=== PATIENT | male | born 1985 | race Caucasian/White ===

== ENCOUNTER 2020-12-13 16:51 | Emergency (ER) | payer BC ==
[2020-12-13 17:10] VITALS: BP 142/84; PULSE 92
--- NOTE | 2020-12-13 17:30 | EDM.PDOC ---
ED HPI GENERAL MEDICAL PROBLEM - General Chief Complaint: Skin Complaint Stated Complaint: LT LEG BLEEDING AND WONT START Time Seen by Provider: 12/13/20 17:04 Source of Information: Reports: Patient, RN Notes Reviewed History Limitations: Reports: No Limitations - History of Present Illness INITIAL COMMENTS - FREE TEXT/NARRATIVE: Patient is a 35-year-old male presenting to the emergency department for evaluation with regards to a bleeding scratch on his left, medial, lower extremity. He reports that around 4 AM this morning he scratched his leg and the bleeding began. He wrapped it and went to bed. Upon waking he had no further bleeding, however when he took the dressing off it started bleeding significantly. He was seen at the [place] walk-in clinic prior to coming here. The provider attempted to cauterize the area and the bleeding did stop momentarily, however unfortunately it resumed. He is not on any blood thinners. He reports that he had an occurrence similar to this about 6 months ago. 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 - Related Data Allergies Allergy/AdvReac Type Severity Reaction Status Date / Time No Known Allergies Allergy Verified 09/30/16 07:23 Home Meds: Home Meds aMILoride HCl [Amiloride HCl] 10 mg PO DAILY 12/13/20 [History] atorvaSTATin Calcium [Lipitor] 40 mg PO DAILY 12/13/20 [History] Past Medical History Cardiovascular History: Reports: High Cholesterol, Hypertension Endocrine/Metabolic History: Reports: Diabetes, Type II Social & Family History - Tobacco Use Tobacco Use Status *Q: Current Every Day Tobacco User Years of Tobacco use: 15 Packs/Tins Daily: 0.7 - Caffeine Use Caffeine Use: Reports: Energy Drinks - Recreational Drug Use Recreational Drug Use: No ED ROS GENERAL - Review of Systems Review Of Systems: Comprehensive ROS is negative, except as noted in HPI. ED EXAM, SKIN/RASH Exam: See Below General Appearance: Alert, WD/WN, No Apparent Distress Respiratory/Chest: No Respiratory Distress, Lungs Clear, Normal Breath Sounds, No Accessory Muscle Use, Chest Non-Tender Cardiovascular: Normal Peripheral Pulses, Regular Rate, Rhythm, No Gallop, No JVD, No Murmur, No Rub Extremities: Other (2+ edema to BLE. Stasis changes to skin. Aprox 0.25cm open area to left medial lower leg. No active bleeding.) Course - Vital Signs Last Recorded V/S: Last Vital Signs Temp 97.7 F 12/13/20 17:07 Pulse 92 12/13/20 17:07 Resp 20 12/13/20 17:07 BP 142/84 H 12/13/20 17:07 Pulse Ox 94 L 12/13/20 17:07 - Re-Assessments/Exams Free Text/Narrative Re-Assessment/Exam: Patient is a 35-year-old male presenting to the emergency department with complaints of a small scratch to his medial left lower extremity that would not stop bleeding. Patient is quite obese and has stasis changes and edema to the tissues of his lower extremities. He states that he scratched his lower leg about 4:00 this morning and it started bleeding. He applied dressing and it did stop, however when he removed it the bleeding resumed and he could not get it to stop. He was seen at the walk-in clinic where they cauterized it with silver nitrate but it continued to bleed. On presentation to ER, he had a dressing of gauze wrapped in [place] as well as a plastic bag over the area. There was clotted blood noted within the bag and saturated through the gauze. Dressing was removed. There is a pinpoint open area, however there is no active bleeding. Hemostatic gauze covered by 4 x 4's and wrapped in Coban was applied. We will have the patient get up and walk around to see if bleeding recurs. 12/13/20 17:44 Patient has been up and walking around the facility with no recurrence of bleeding. Recommend that he leave this dressing in place for 48 hours to allow a good scab to form. Should the bleeding recur, the hemostatic gauze should stop it. Discussed return precautions. Discharge instructions as documented. Departure - Departure Time of Disposition: 17:44 Disposition: Home, Self-Care 01 Condition: Good Clinical Impression: Bleeding from wound - Discharge Information Instructions: Uncontrolled Wound Bleeding Referrals: PCP,None [Primary Care Provider] - Forms: ED Department Discharge Additional Instructions: You were seen in the emergency department today for bleeding to the wound in your left lower leg. Hemostatic dressing was applied to the area. While in the ER, no further bleeding was noted. Recommend that she leave this dressing in place for 48 hours. After that time you may remove it. If bleeding should recur and is saturating the dressing, you should return to ER. Sepsis Event Note (ED) - Evaluation Sepsis Screening Result: No Definite Risk
== END 2020-12-13 17:55 | disposition home or self-care (01) ==
LOC: JD.ED 16:51
DX: S81.802A Unspecified open wound, left lower leg, initial encounter (principal); E78.00 Pure hypercholesterolemia, unspecified; I10 Essential (primary) hypertension; E11.9 Type 2 diabetes mellitus without complications; E66.9 Obesity, unspecified; Z68.43 Body mass index [BMI] 50.0-59.9, adult; Z72.0 Tobacco use; X58.XXXA Exposure to other specified factors, initial encounter
CPT/HCPCS: 99282; 99283

== ENCOUNTER 2021-04-02 15:54 | Emergency (ER) | payer BC ==
[2021-04-02] MEDS ORDERED: Sodium Chloride 0.9% 10 ML Syringe FLUSH PRN (17:25)
[2021-04-02] MEDS ORDERED: Labetalol 100 MG/20 ML MDV IVPUSH ONE ×2 (17:28→19:23)
--- NOTE | 2021-04-02 17:58 | CR ---
Chest: PA and lateral views of the chest were obtained. Comparison: No prior chest imaging is available. Heart is enlarged. Upper mediastinum is within normal limits. Pulmonary vessels are minimally congested. Lungs otherwise are clear. Bony structures show scattered disc space narrowing within the spine. Impression: 1. Findings suspicious for minimal CHF. 2. Other incidental findings. Diagnostic code #3
--- NOTE | 2021-04-02 18:49 | EDM.PDOC ---
ED HPI GENERAL MEDICAL PROBLEM - General Chief Complaint: Cardiovascular Problem Stated Complaint: HIGH BP/LOW OXYGEN Time Seen by Provider: 04/02/21 17:18 Source of Information: Reports: Patient, RN Notes Reviewed History Limitations: Reports: No Limitations - History of Present Illness INITIAL COMMENTS - FREE TEXT/NARRATIVE: Patient is a 35-year-old male presenting to the emergency department on the [facility] for evaluation with regards to elevated blood pressure and low oxygen saturation. Patient reports that he had an appointment with Dr. Glynn, to establish care as his primary care provider, Dr. Monge, retired. He was found to have high blood pressure and low oxygen saturation, therefore he was sent to the ER and was not seen by a provider in the clinic. Patient reports that he is prescribed amlodipine 10 mg daily as well as losartan, however he has been out of the losartan for approximately 1 week. He is also prescribed Rybelsus for borderline type 2 diabetes and to assist with weight loss plan of having bariatric surgery. Patient reports that he has had low oxygen saturations in the clinic in the past. Reports last time he saw Dr. Monge, his oxygen was 86 to 89% on room air but that the provider was not concerned with this. Patient reports that he has gained approximate 30 pounds over the last few weeks. He also reports increased lower extremity edema. Denies any shortness of breath at rest but states he does become short of breath with exertion; however, this has been chronic for him. He has a known history of significant sleep apnea but does not wear CPAP at night as he cannot tolerate it. Denies any chest pain. He has never been formally diagnosed with congestive heart failure but states that there has been "suspicion "of it in the past. Denies ever having echocardiogram completed. On arrival to ER, blood pressure was found to be elevated at 178/96, respiratory 20, oxygen 85% on room air, pulse 91, temperature 99.2 temporal. - Related Data Allergies Allergy/AdvReac Type Severity Reaction Status Date / Time No Known Allergies Allergy Verified 04/02/21 16:26 Home Meds: Home Meds aMILoride HCl [Amiloride HCl] 10 mg PO DAILY 12/13/20 [History] atorvaSTATin Calcium [Lipitor] 40 mg PO DAILY 12/13/20 [History] Furosemide [Lasix] 20 mg PO DAILY 5 Days #5 tab 04/02/21 [Rx] Losartan/Hydrochlorothiazide [Losartan-HCTZ 100-25 MG] 1 each PO DAILY #30 tablet 04/02/21 [Rx] amLODIPine Besylate [Amlodipine Besylate] 10 mg PO DAILY #30 tablet 04/02/21 [Rx] Past Medical History Cardiovascular History: Reports: High Cholesterol, Hypertension Endocrine/Metabolic History: Reports: Diabetes, Type II Social & Family History - Tobacco Use Tobacco Use Status *Q: Current Every Day Tobacco User Years of Tobacco use: 20 Packs/Tins Daily: 0.7 - Caffeine Use Caffeine Use: Reports: Energy Drinks - Recreational Drug Use Recreational Drug Use: No ED ROS GENERAL - Review of Systems Review Of Systems: See Below Constitutional: Reports: No Symptoms. Denies: Fever, Chills HEENT: Reports: No Symptoms Respiratory: Reports: Shortness of Breath (chronic). Denies: Wheezing, Pleuritic Chest Pain, Cough Cardiovascular: Reports: Dyspnea on Exertion, Edema (lower extremity). Denies: Chest Pain, Palpitations Endocrine: Reports: No Symptoms GI/Abdominal: Reports: No Symptoms : Reports: No Symptoms Musculoskeletal: Reports: No Symptoms Skin: Reports: No Symptoms Neurological: Reports: No Symptoms Psychiatric: Reports: No Symptoms Hematologic/Lymphatic: Reports: No Symptoms Immunologic: Reports: No Symptoms ED EXAM, GENERAL - Physical Exam Exam: See Below Exam Limited By: No Limitations General Appearance: Alert, WD/WN, No Apparent Distress, Obese Respiratory/Chest: No Respiratory Distress, No Accessory Muscle Use, Chest Non- Tender, Other (Faint crackles to bilateral bases) Cardiovascular: Normal Peripheral Pulses, Regular Rate, Rhythm, No Edema, No Gallop, No JVD, No Murmur, No Rub GI/Abdominal: Normal Bowel Sounds, Soft, Non-Tender, No Organomegaly, No Distention, No Abnormal Bruit, No Mass, Other (Obese) Neurological: Alert, Oriented, CN II-XII Intact, Normal Cognition, Normal Gait, Normal Reflexes, No Motor/Sensory Deficits Psychiatric: Normal Affect, Normal Mood Skin Exam: Warm, Dry, Intact, Normal Color, No Rash #1 Interpretation EKG Date: 04/02/21 Time: 18:06 Rhythm: NSR Rate (Beats/Min): 79 [place]: Normal P-Wave: Present QRS: Normal ST-T: Normal QT: Normal Course - Vital Signs Last Recorded V/S: Last Vital Signs Temp 99.2 F 04/02/21 16:22 Pulse 72 04/02/21 19:53 Resp 14 04/02/21 19:53 BP 183/97 H 04/02/21 21:16 Pulse Ox 97 04/02/21 19:53 - Orders/Labs/Meds Labs: Laboratory Tests 04/02/21 04/02/21 04/02/21 Range/Units 19:20 19:20 19:20 WBC 11.01 H (4.23-9.07) K/mm3 RBC 5.40 (4.63-6.08) M/mm3 Hgb 13.1 L (13.7-17.5) gm/dl Hct 45.5 (40.1-51.0) % MCV 84.3 (79.0-92.2) fl MCH 24.3 L (25.7-32.2) pg MCHC 28.8 L (32.2-35.5) g/dl RDW Std Deviation 55.6 H (35.1-43.9) fL Plt Count 335 (163-337) K/mm3 MPV 9.7 (9.4-12.3) fl Neut % (Auto) 68.1 H (34.0-67.9) % Lymph % (Auto) 17.4 L (21.8-53.1) % [place] % (Auto) 11.3 (5.3-12.2) % Eos % (Auto) 2.6 (0.8-7.0) Baso % (Auto) 0.3 (0.1-1.2) % Neut # (Auto) 7.50 H (1.78-5.38) K/mm3 Lymph # (Auto) 1.92 (1.32-3.57) K/mm3 [place] # (Auto) 1.24 H (0.30-0.82) K/mm3 Eos # (Auto) 0.29 (0.04-0.54) K/mm3 Baso # (Auto) 0.03 (0.01-0.08) K/mm3 Manual Slide Review Abnormal smear Sodium 144 (136-145) mEq/L Potassium 4.6 (3.5-5.1) mEq/L Chloride 104 (98-107) mEq/L Carbon Dioxide 34 H (21-32) mEq/L Anion Gap 10.6 (5-15) BUN 13 (7-18) mg/dL Creatinine 0.8 (0.7-1.3) mg/dL Est Cr Clr Drug Dosing 155.22 mL/min Estimated GFR (MDRD) > 60 (>60) mL/min BUN/Creatinine Ratio 16.3 (14-18) Glucose 90 (70-99) mg/dL Calcium 8.9 (8.5-10.1) mg/dL Magnesium 2.2 (1.8-2.4) mg/dL Total Bilirubin 0.3 (0.2-1.0) mg/dL AST 33 (15-37) U/L ALT 37 (16-63) U/L Alkaline Phosphatase 82 (46-116) U/L Troponin I < 0.017 (0.00-0.056) ng/mL NT-Pro-B Natriuret Pep 93 (0-125) pg/mL Total Protein 7.5 (6.4-8.2) g/dl Albumin 2.8 L (3.4-5.0) g/dl Globulin 4.7 gm/dL Albumin/Globulin Ratio 0.6 L (1-2) Meds: Medications Discontinued Medications Generic Name Dose Route Start Last Admin Trade Name Freq PRN Reason Stop Dose Admin Furosemide 20 mg 04/02/21 20:03 04/02/21 21:08 Furosemide 20 Mg/2 Ml Vial IVPUSH 04/02/21 20:04 20 mg ONETIME ONE Administration Labetalol HCl 10 mg 04/02/21 17:28 04/02/21 18:59 Labetalol 100 Mg/20 Ml Mdv IVPUSH 04/02/21 17:29 10 mg ONETIME ONE Administration Protocol Labetalol HCl 10 mg 04/02/21 19:23 04/02/21 19:41 Labetalol 100 Mg/20 Ml Mdv IVPUSH 04/02/21 19:24 10 mg ONETIME ONE Administration Protocol Losartan Potassium 100 mg 04/02/21 20:06 04/02/21 21:16 Losartan 100 Mg Tab PO 04/02/21 20:07 100 mg ONETIME ONE Administration Sodium Chloride 10 ml 04/02/21 17:25 04/02/21 19:13 Sodium Chloride 0.9% 10 Ml Syringe FLUSH 10 ml ASDIRECTED PRN Administration Keep Vein Open - Re-Assessments/Exams Free Text/Narrative Re-Assessment/Exam: Patient is a 35-year-old male presenting to the ER from the clinic with complaints of elevated blood pressure and low oxygen saturation. On arrival to ER, patient was found to have a blood pressure 178/96 with oxygen saturation of 85% on room air. The time my exam, he was on 2 L of oxygen saturating in the upper 90s. I did turn the oxygen off during my exam and he is maintaining oxygen saturation at 91 to 94%. He reports that he has had low oxygen saturations in the past and that his primary care provider was not concerned with this. He is significantly overweight and reports that he has been trying to lose weight. He has been prescribed amlodipine 10 mg daily as well as losartan/hydrochlorthiazide, 100 mg / 25 mg daily. He is out of his losartan/hydrochlorthiazide so is only been taking amlodipine. Denies any previous diagnosis of congestive heart failure, however on exam, there are some faint crackles auscultated on his bilateral bases. He also has 2-3+ pitting edema of his bilateral lower extremities. I have ordered blood work, chest x- ray, EKG. I will start with labetalol 10 mg IV. 04/02/211924 Patient had little improvement with the labetalol 10 mg IV. Blood pressures remain in the 180s to 190s systolically. Have ordered an additional 10 mg of IV labetalol to be given. 04/02/212009 Hematology significant for WBC minimally elevated 11.01, hemoglobin 13.1, CO2 34. proBNP is normal, however chest x-ray does show some findings of mild congestive heart failure. Given his chest x-ray and significant lower extremity edema, have ordered Lasix 20 mg IV as well as 100 mg of losartan p.o. to be given. Patient oxygen saturations had dipped to the upper 80s with occasional dips to 80%, however he was sleeping off and on. He reports he does have a history of severe sleep apnea but does not wear CPAP because he cannot tolerate the mask. Oxygen was reapplied at 2 L while he is resting. 04/02/21 21:24 Has received his labetalol and losartan as well as Lasix. Patient has been sitting up in the chair with no supplemental O2 and is maintaining oxygen saturation of 91 to 94% on room air. He was very anxious to leave and does not want to wait for discharge instructions. Blood pressure reading was 183/97, however he will not stay for any longer to see if his blood pressure comes down after the the baseline losartan, however these should bring his blood pressure down further. I will send prescription for Lasix 20 mg orally for the next 5 days as well as his amlodipine and losartan. Recommend that he call tomorrow to set up a follow-up appointment with a primary care provider for ongoing monitoring. Discussed return precautions. Departure - Departure Time of Disposition: 21:24 Disposition: Home, Self-Care 01 Condition: Good Clinical Impression: Pulmonary vascular congestion, Peripheral edema Hypertensive heart disease Qualifiers: Heart failure presence: unspecified whether heart failure present Qualified Code(s): I11.9 - Hypertensive heart disease without heart failure Prescriptions: amLODIPine Besylate [Amlodipine Besylate] 10 mg PO DAILY #30 tablet Furosemide [Lasix] 20 mg PO DAILY 5 Days #5 tab Losartan/Hydrochlorothiazide [Losartan-HCTZ 100-25 MG] 1 each PO DAILY #30 tablet Instructions: Peripheral Edema Referrals: PCP,None [Primary Care Provider] - Forms: ED Department Discharge Additional Instructions: Were seen in the emergency department today after being sent here by the clinic for elevated blood pressure and low oxygen. Work-up included blood work, EKG, chest x-ray. Results of your work-up overall normal. Your blood pressure was elevated and your oxygen was at the low end of normal. While in the ER, you received medications to bring your blood pressure down as well as Lasix which is a diuretic. You have been provided with a 5-day course of Lasix. Take this once daily. I have also sent prescription for your amlodipine and losartan. Take these as prescribed. Recommend contacting the clinic tomorrow to set up follow-up appointment for ongoing management. Return to ER for new or worsening symptoms. Sepsis Event Note (ED) - Evaluation Sepsis Screening Result: No Definite Risk
[2021-04-02 19:54] VITALS: PULSE 72
[2021-04-02] MEDS ORDERED: Furosemide 20 MG/2 ML VIAL IVPUSH ONE (20:03)
[2021-04-02] MEDS ORDERED: Losartan 100 MG Tab PO ONE (20:06)
[2021-04-02 21:17] VITALS: BP 183/97
== END 2021-04-02 21:53 | disposition home or self-care (01) ==
LOC: JD.ED 15:54
DX: I11.9 Hypertensive heart disease without heart failure (principal); R60.0 Localized edema; R09.89 Other specified symptoms and signs involving the circulatory and respiratory systems; E78.00 Pure hypercholesterolemia, unspecified; E11.9 Type 2 diabetes mellitus without complications; Z79.899 Other long term (current) drug therapy; Z72.0 Tobacco use
CPT/HCPCS: 36415; 71046; 80053; 83735; 83880; 84484; 85025; 93005; 96374; 96375; 96376; 99284; A9270; J1940; J3490; 93010

== ENCOUNTER 2021-06-22 17:50 | Inpatient (IN) | payer BC ==
--- NOTE | 2021-06-22 19:37 | EDM.PDOC ---
ED HPI GENERAL MEDICAL PROBLEM - General Chief Complaint: Cardiovascular Problem Stated Complaint: SWOLLEN ABDOMIN AND LEGS Time Seen by Provider: 06/22/21 19:20 Source of Information: Reports: Patient History Limitations: Reports: No Limitations - History of Present Illness INITIAL COMMENTS - FREE TEXT/NARRATIVE: Patient is a 35-year-old male with a past history of morbid obesity, hypertension presenting with chief complaint of shortness of breath. Duration of symptoms have been for the past 1 month. Symptoms have been gradually progressing. He reports associated increase in weight gain despite decreasing appetite. This week and is associated with increased swelling in the lower extremities bilaterally as well as the abdomen. He states he is gotten to the point now where even minimal to such as going to the bathroom are extremely arduous. He denies any chest pain with this. He denies any fevers or cough. He states he had a stress test on 1 month ago which showed his heart was in reasonably good shape but was enlarged. Patient does report compliance with all medications prescribed. Generalized Pain Score (Numeric/FACES): 7 - Related Data Allergies Allergy/AdvReac Type Severity Reaction Status Date / Time No Known Allergies Allergy Verified 06/22/21 18:40 Home Meds: Home Meds atorvaSTATin Calcium [Lipitor] 40 mg PO DAILY 12/13/20 [History] amLODIPine Besylate [Amlodipine Besylate] 10 mg PO DAILY #30 tablet 04/02/21 [Rx] Furosemide [Lasix] 40 mg PO DAILY 06/22/21 [History] Losartan/Hydrochlorothiazide [Losartan-HCTZ 100-25 MG] 25 - 100 mg PO DAILY 06/22/21 [History] Semaglutide [Rybelsus] 7 mg PO DAILY 06/22/21 [History] dilTIAZem HCL [Dilt-Xr] 180 mg PO DAILY 06/22/21 [History] Past Medical History Cardiovascular History: Reports: High Cholesterol, Hypertension Psychiatric History: Reports: Addiction Endocrine/Metabolic History: Reports: Diabetes, Type II Hematologic History: Reports: Anemia, Iron Deficiency - Infectious Disease History Infectious Disease History: Reports: Novel Coronavirus Social & Family History - Tobacco Use Tobacco Use Status *Q: Current Every Day Tobacco User Years of Tobacco use: 20 Packs/Tins Daily: 0.8 - Caffeine Use Caffeine Use: Reports: Energy Drinks, Soda - Recreational Drug Use Recreational Drug Use: No ED ROS GENERAL - Review of Systems Review Of Systems: See Below Free Text/Narrative/Comment: In addition to that documented in the HPI above, the additional ROS was obtained: Constitutional: Denies fevers or chills Eyes: Denies vision changes ENMT: Denies sore throat CV: Denies chest pain Resp: Per HPI GI: Denies vomiting or diarrhea : Denies painful urination MSK: Denies recent trauma Skin: Denies new rashes Neuro: Denies new numbness or tingling or weakness Endocrine: Denies unexpected weight loss Heme: Denies bleeding disorders ED EXAM, GENERAL - Physical Exam Exam: See Below Free Text/Narrative:: I have reviewed the triage vital signs Const: Well nourished, well developed, appears stated age. Morbidly obese. Nontoxic appearance Eyes: Pupils Equal and reactive to light bilaterally, no conjunctival injection HENT: No signs of trauma or swelling, Neck supple without meningismus CV: Demonstrates significant lower extremity edema extending up into the abdomen. Regular Rate Rhythm, Warm, well-perfused extremities RESP: Unlabored respiratory effort GI: soft, non-tender, non-distended, no masses MSK: No gross deformities appreciated Skin: Warm, dry. No rashes Neuro: Alert, engine manager II-XII grossly intact. Sensation and motor function of e xtremities grossly intact. Psych: Appropriate mood and affect. #1 Interpretation EKG Date: 06/22/21 Time: 18:41 Rhythm: NSR Rate (Beats/Min): 88 Warren: RAD-Right Warren Deviation P-Wave: Present QRS: Normal ST-T: Normal QT: Normal Comparison: No Change EKG Interpretation Comments: Poor R wave progression. Abnormal EKG Course - Vital Signs Last Recorded V/S: Last Vital Signs Temp 36.3 C 06/22/21 18:35 Pulse 83 06/22/21 18:35 Resp 16 06/22/21 18:35 BP 152/71 H 06/22/21 18:35 Pulse Ox 73 L 06/22/21 18:35 - Orders/Labs/Meds Orders: Active Orders 24 hr Category Date Time Status Admission Status [Patient Status] [ADT] Routine ADT 06/22/21 20:44 Active Oxygen Therapy, ED [RC] ASDIRECTED Care 06/22/21 18:40 Active Chest 1V Frontal [CR] Stat Exams 06/22/21 19:23 Taken Sodium Chloride 0.9% [Normal Saline] 100 ml Med 06/22/21 21:30 Active IV ASDIRECTED Medication Orders Sodium Chloride (Normal Saline) 100 mls @ 70 mls/min IV ASDIRECTED [place] Labs: Laboratory Tests 06/22/21 06/22/21 06/22/21 Range/Units 18:40 19:05 19:15 WBC 9.88 H (4.23-9.07) K/mm3 RBC 5.37 (4.63-6.08) M/mm3 Hgb 11.8 L (13.7-17.5) gm/dl Hct 43.1 (40.1-51.0) % MCV 80.3 D (79.0-92.2) fl MCH 22.0 L (25.7-32.2) pg MCHC 27.4 L (32.2-35.5) g/dl RDW Std Deviation 59.5 H (35.1-43.9) fL Plt Count 446 H D (163-337) K/mm3 MPV 8.9 L (9.4-12.3) fl Neut % (Auto) 65.2 (34.0-67.9) % Lymph % (Auto) 18.3 L (21.8-53.1) % Wise % (Auto) 14.4 H (5.3-12.2) % Eos % (Auto) 1.5 (0.8-7.0) Baso % (Auto) 0.3 (0.1-1.2) % Neut # (Auto) 6.44 H (1.78-5.38) K/mm3 Lymph # (Auto) 1.81 (1.32-3.57) K/mm3 Wise # (Auto) 1.42 H (0.30-0.82) K/mm3 Eos # (Auto) 0.15 (0.04-0.54) K/mm3 Baso # (Auto) 0.03 (0.01-0.08) K/mm3 Manual Slide Review Abnormal smear PT (9.7-12.0) SECONDS INR D-Dimer, Quantitative 1.71 H (0.19-0.50) mg/L Sodium (136-145) mEq/L Potassium (3.5-5.1) mEq/L Chloride (98-107) mEq/L Carbon Dioxide (21-32) mEq/L Anion Gap (5-15) BUN (7-18) mg/dL Creatinine (0.7-1.3) mg/dL Est Cr Clr Drug Dosing mL/min Estimated GFR (MDRD) (>60) mL/min BUN/Creatinine Ratio (14-18) Glucose (70-99) mg/dL Calcium (8.5-10.1) mg/dL Total Bilirubin (0.2-1.0) mg/dL AST (15-37) U/L ALT (16-63) U/L Alkaline Phosphatase (46-116) U/L Troponin I (0.00-0.056) ng/mL C-Reactive Protein (<1.0) mg/dL NT-Pro-B Natriuret Pep (0-125) pg/mL Total Protein (6.4-8.2) g/dl Albumin (3.4-5.0) g/dl Globulin gm/dL Albumin/Globulin Ratio (1-2) SARS-CoV-2 RNA ([place]) Positive H (NEGATIVE) 06/22/21 06/22/21 06/22/21 Range/Units 19:15 19:15 19:15 WBC (4.23-9.07) K/mm3 RBC (4.63-6.08) M/mm3 Hgb (13.7-17.5) gm/dl Hct (40.1-51.0) % MCV (79.0-92.2) fl MCH (25.7-32.2) pg MCHC (32.2-35.5) g/dl RDW Std Deviation (35.1-43.9) fL Plt Count (163-337) K/mm3 MPV (9.4-12.3) fl Neut % (Auto) (34.0-67.9) % Lymph % (Auto) (21.8-53.1) % Wise % (Auto) (5.3-12.2) % Eos % (Auto) (0.8-7.0) Baso % (Auto) (0.1-1.2) % Neut # (Auto) (1.78-5.38) K/mm3 Lymph # (Auto) (1.32-3.57) K/mm3 Wise # (Auto) (0.30-0.82) K/mm3 Eos # (Auto) (0.04-0.54) K/mm3 Baso # (Auto) (0.01-0.08) K/mm3 Manual Slide Review PT 12.4 H (9.7-12.0) SECONDS INR 1.12 D-Dimer, Quantitative (0.19-0.50) mg/L Sodium 139 (136-145) mEq/L Potassium 4.4 (3.5-5.1) mEq/L Chloride 100 (98-107) mEq/L Carbon Dioxide 38 H (21-32) mEq/L Anion Gap 5.4 (5-15) BUN 10 (7-18) mg/dL Creatinine 0.9 (0.7-1.3) mg/dL Est Cr Clr Drug Dosing 137.97 mL/min Estimated GFR (MDRD) > 60 (>60) mL/min BUN/Creatinine Ratio 11.1 L (14-18) Glucose 116 H (70-99) mg/dL Calcium 8.7 (8.5-10.1) mg/dL Total Bilirubin 0.4 (0.2-1.0) mg/dL AST 30 (15-37) U/L ALT 33 (16-63) U/L Alkaline Phosphatase 84 (46-116) U/L Troponin I < 0.017 (0.00-0.056) ng/mL C-Reactive Protein 10.7 H* (<1.0) mg/dL NT-Pro-B Natriuret Pep 534 H (0-125) pg/mL Total Protein 7.8 (6.4-8.2) g/dl Albumin 2.5 L (3.4-5.0) g/dl Globulin 5.3 gm/dL Albumin/Globulin Ratio 0.5 L (1-2) SARS-CoV-2 RNA ([place]) (NEGATIVE) Meds: Medications Generic Name Dose Route Start Last Admin Trade Name Freq PRN Reason Stop Dose Admin Sodium Chloride 100 mls @ 70 mls/min 06/22/21 21:30 Normal Saline IV ASDIRECTED [place] Discontinued Medications Generic Name Dose Route Start Last Admin Trade Name Freq PRN Reason Stop Dose Admin Dexamethasone 6 mg 06/22/21 20:24 06/22/21 21:09 Dexamethasone 4 Mg/Ml 5 Ml Mdv IV 06/22/21 20:25 6 mg ONETIME ONE Administration Furosemide 40 mg 06/22/21 20:24 06/22/21 21:07 Furosemide 40 Mg/4 Ml Vial IVPUSH 06/22/21 20:25 40 mg NOW ONE Administration Remdesivir 200 mg/ Sodium 250 mls @ 250 mls/hr 06/22/21 20:25 06/22/21 21:09 Chloride IV 06/22/21 20:26 250 mls/hr ONETIME ONE Administration Iopamidol 100 ml 06/22/21 21:19 Iopamidol 755 Mg/Ml 100 Ml Bottle IVPUSH 06/22/21 21:20 ONETIME ONE Sodium Chloride 10 ml 06/22/21 21:19 Sodium Chloride 0.9% 10 Ml Sdv FLUSH 06/22/21 21:20 ONETIME ONE Departure - Departure Time of Disposition: 21:00 Disposition: Admitted As Inpatient 64 Preliminary Cause of *Q: Sepsis & Multi System Organ Failure Reason for Transfer *Q: Other Clinical Impression: Acute hypoxemic respiratory failure, COVID-19, Anasarca Referrals: Yelena Torrez PA-C [Primary Care Provider] - Forms: ED Department Discharge Critical Care Note - Critical Care Note Total Time (mins): 35 Comments: Critical Care Procedure Note Total critical care time: Approximately 35 minutes Due to a high probability of clinically significant, life threatening deterioration, the patient required my highest level of preparedness to intervene emergently and I personally spent this critical care time directly and personally managing the patient. This critical care time included obtaining a history; examining the patient; pulse oximetry; ordering and review of studies; arranging urgent treatment with development of a management plan; evaluation of patient's response to treatment; frequent reassessment; and, discussions with other providers. This critical care time was performed to assess and manage the high probability of imminent, life-threatening deterioration that could result in multi-organ failure. It was exclusive of separately billable procedures and treating other patients and teaching time. Sepsis Event Note (ED) - Evaluation Sepsis Screening Result: No Definite Risk - Focused Exam Vital Signs: Vital Signs Temp Pulse Resp BP Pulse Ox 06/22/21 18:35 36.3 C 83 16 152/71 H 73 L - My Orders Last 24 Hours: My Active Orders 06/22/21 18:40 Oxygen Therapy, ED [RC] ASDIRECTED 06/22/21 19:23 Chest 1V Frontal [CR] Stat 06/22/21 20:44 Admission Status [Patient Status] [ADT] Routine 06/22/21 21:30 Sodium Chloride 0.9% [Normal Saline] 100 ml IV ASDIRECTED - Assessment/Plan Last 24 Hours: My Active Orders 06/22/21 18:40 Oxygen Therapy, ED [RC] ASDIRECTED 06/22/21 19:23 Chest 1V Frontal [CR] Stat 06/22/21 20:44 Admission Status [Patient Status] [ADT] Routine 06/22/21 21:30 Sodium Chloride 0.9% [Normal Saline] 100 ml IV ASDIRECTED Assessment:: Patient is a 35-year-old male presenting to the emergency room with shortness of breath. On arrival, patient was significantly hypoxic. Initially improved with 3 L nasal cannula but did begin to desaturate into the low 50%. Patient was never in any sort of respiratory distress. Oxygenation improved with position change as well as 5 L nasal cannula. Differential diagnosis considered for this patient include Covid pneumonia, CHF exacerbation, UT, pulmonary embolism, bacterial pneumonia. Laboratory studies and x-ray performed. Patient did have positive COVID-19 test. CRP and D-dimer were both elevated. Minimal leukocytosis. Kidney function within normal limits. Chest x-ray shows evidence of Covid pneumonia bilaterally. Patient was initiated on dexamethasone, remdesivir and Lasix. Case was discussed with hospitalist, Dr. Haddad, who did request D-dimer for possible PE. Unfortunately, patient's D-dimer is elevated but patient body habitus is not fit for CT scan. We will initiate prophylactic anticoagulation. Patient will be admitted to the hospital for further monitoring and management.
[2021-06-22] MEDS ORDERED: Dexamethasone 4 MG/ML 5 ML MDV IV ONE (20:24)
[2021-06-22] MEDS ORDERED: Furosemide 40 MG/4 ML VIAL IVPUSH ONE (20:24)
[2021-06-22] MEDS ORDERED: REMDESIVIR 200 MG in Sodium Chloride 0.9% 250 ML IV ONE (20:25)
[2021-06-22] MEDS ORDERED: Sodium Chloride 0.9% 10 ML SDV FLUSH ONE (21:19)
[2021-06-22] MEDS ORDERED: Iopamidol 755 Mg/ML 100 ML Bottle IVPUSH ONE (21:19)
[2021-06-22] MEDS ORDERED: Sodium Chloride 0.9% 100 ML IV SCH (21:30)
[2021-06-22] MEDS: Enoxaparin 150 MG/1 ML Syringe SUBCUT SCH (23:57)
[2021-06-23] MEDS ORDERED: Ibuprofen 600 MG Tab PO PRN (00:36)
--- NOTE | 2021-06-23 07:13 | CR ---
Chest: Portable view of the chest was obtained. Comparison: Prior chest x-ray of 04/02/21. Heart size is felt to be slightly enlarged which is stable from prior study. Pulmonary vessels appear mildly increased which are fairly stable from prior study. Lungs otherwise are clear. Bony structures appear within normal limits. Impression: 1. Heart size is slightly prominent which is stable. 2. Pulmonary vessels are mildly congested. Uncertain if these are chronic or acute. Diagnostic code #3
[2021-06-23] MEDS: Enoxaparin 150 MG/1 ML Syringe SUBCUT SCH ×2 (08:23→20:23)
--- NOTE | 2021-06-23 08:55 | PCM.HP.2 ---
H&P History of Present Illness - General Date of Service: 06/23/21 Admit Problem/Dx: Admission Diagnosis/Problem Admission Diagnosis/Problem Hypoxia Source of Information: Patient, Old Records, Provider, RN, RN Notes Reviewed History Limitations: Reports: No Limitations - History of Present Illness Initial Comments - Free Text/Narative: This is a 35-year-old male who presents to ED on 06/22/2021 with a swollen abdomen and legs. Reports symptoms have been ongoing for approximately 1 month and have been worsening. He is noted increasing weight gain despite decreasing appetite he has difficulty even getting up to go to the bathroom. Denies any chest pain, fevers, cough. He underwent a stress test approximately 1 month ago which showed LVH but no ischemia. His primary care provider has been increasing his diuretics lately, but he states they have not been working. Denies any recent echocardiogram and states he is scheduled for 1 in the next few weeks. In the ED twelve-lead EKG was obtained showing a sinus rhythm at 88 bpm with right axis deviation and poor R wave progression. Temp was 36.3. Pulse 83. Respirations 16. Blood pressure 152/71. Pulse ox was noted to be 73% on room air. Labs were obtained showing a WBC of 9.88. Hemoglobin 11.8. Platelet 446,000. Neutrophils were normal at 65.2. D-dimer was 1.71. SARS-CoV-2 RNA was positive. INR was 1.12. Sodium was 139. Potassium 4.4. Chloride 100. Carbon dioxide 38. Anion gap was 5.4. BUN was 10. Creatinine 0.9. GFR was greater than 60. Glucose was 116. Calcium was 8.7. Bilirubin 0.4. AST was 30, ALT 33, alkaline phosphatase 84. Troponin was less than 0.017. CRP was 10.7. proBNP was 534. Protein was 7.8. Albumin was 2.5. He is given 40 mg IV push furosemide and started on dexamethasone and remdesivir. He was requiring 5 L of oxygen via nasal cannula. Plan was to obtain a CT scan with contrast and PE protocol however due to patient's body habitus he will not fit in our CT scanner. Chest x-ray was obtained showing prominent heart size which is stable and mild pulmonary vascular congestion which may be chronic or acute. He carries a history of HLD, HTN, type II DM, anemia, iron deficiency, and tobacco use. His primary care provider is Yelena Torrez PA-C. He is a full code. He is subsequently admitted to the medical floor on telemetry for management of his COVID-19 pneumonia and work-up for CHF. Generalized Pain Score (Numeric/FACES): 7 - Related Data Allergies/Adverse Reactions: Allergies Allergy/AdvReac Type Severity Reaction Status Date / Time No Known Allergies Allergy Verified 06/22/21 22:46 Home Medications: Home Meds atorvaSTATin Calcium [Lipitor] 40 mg PO DAILY 12/13/20 [History] amLODIPine Besylate [Amlodipine Besylate] 10 mg PO DAILY #30 tablet 04/02/21 [Rx] Calcium Carbonate [Calcium] 600 mg PO 06/22/21 [History] Furosemide [Lasix] 40 mg PO DAILY 06/22/21 [History] Losartan/Hydrochlorothiazide [Losartan-HCTZ 100-25 MG] 25 - 100 mg PO DAILY 06/22/21 [History] Magnesium Oxide [Mag-Oxide Magnesium] 06/22/21 [History] Potassium Gluconate [Potassium] 99 mg PO 06/22/21 [History] Semaglutide [Rybelsus] 7 mg PO DAILY 06/22/21 [History] dilTIAZem HCL [Dilt-Xr] 180 mg PO DAILY 06/22/21 [History] Past Medical History Cardiovascular History: Reports: High Cholesterol, Hypertension Psychiatric History: Reports: Addiction Endocrine/Metabolic History: Reports: Diabetes, Type II Hematologic History: Reports: Anemia, Iron Deficiency - Infectious Disease History Infectious Disease History: Reports: Novel Coronavirus Social & Family History - Family History Family Medical History: No Pertinent Family History - Tobacco Use Tobacco Use Status *Q: Current Every Day Tobacco User Years of Tobacco use: 20 Packs/Tins Daily: 1 - Caffeine Use Caffeine Use: Reports: Energy Drinks - Alcohol Use Days Per Week of Alcohol Use: 7 Number of Drinks Per Day: 2 Total Drinks Per Week: 14 - Recreational Drug Use Recreational Drug Use: No H&P Review of Systems - Review of Systems: Review Of Systems: See Below General: Reports: No Symptoms, Malaise, Weakness, Fatigue, Decreased Appetite, Weight Gain. Denies: Fever, Chills HEENT: Reports: No Symptoms. Denies: Headaches, Sore Throat, Visual Changes Pulmonary: Reports: Shortness of Breath, Cough, Sputum. Denies: Wheezing, Pleuritic Chest Pain Cardiovascular: Reports: Dyspnea on Exertion, Orthopnea, Edema. Denies: Chest Pain, Palpitations, Syncope Gastrointestinal: Reports: No Symptoms. Denies: Abdominal Pain, Constipation, Diarrhea, Nausea, Vomiting Genitourinary: Reports: No Symptoms. Denies: Pain Musculoskeletal: Reports: No Symptoms Skin: Reports: No Symptoms. Denies: Cyanosis Psychiatric: Reports: No Symptoms. Denies: Confusion Neurological: Reports: No Symptoms, Difficulty Walking, Weakness. Denies: Confusion, Dizziness, Headache, Numbness, Pre-Existing Deficit, Seizure, Syncope, Tingling, Tremors, Gait Disturbance Hematologic/Lymphatic: Reports: Anemia (Chronic JORGE L) Immunologic: Reports: No Symptoms Exam - Exam Exam: See Below - Vital Signs Vital Signs: Last Vital Signs Temp 97.9 F 06/23/21 04:59 Pulse 95 06/23/21 04:59 Resp 20 06/23/21 04:59 BP 165/87 H 06/23/21 04:59 Pulse Ox 93 L 06/23/21 08:43 Weight: 500 lb 9.6 oz - Exam Quality Assessment: Supplemental Oxygen (6L), DVT Prophylaxis. No: Urinary Catheter General: Alert, Oriented, Cooperative. No: Mild Distress HEENT: Conjunctiva Clear, EACs Clear, Mucosa Moist & [place], Posterior Pharynx Clear Neck: Supple, Trachea Midline Lungs: Normal Respiratory Effort, Decreased Breath Sounds, Crackles Cardiovascular: Regular Rate, Regular Rhythm, Other (Distant heart toneslikely secondary to body habitus) GI/Abdominal Exam: Normal Bowel Sounds, Soft, Non-Tender, No Distention (Male) Exam: Deferred Rectal (Males) Exam: Deferred Back Exam: Normal Inspection, Full Range of Motion Extremities: Normal Range of Motion, Non-Tender, Normal Capillary Refill, Pedal Edema (3-4+), Other (Bilateral lower extremity discoloration and scaling consistent with PVD.) Skin: Warm, Dry, Intact Neurological: Cranial Nerves Intact (Grossly ) Neuro Extensive - Mental Status: Alert, Oriented x3, Normal Mood/Affect Psychiatric: Alert, Normal Affect, Normal Mood - Patient Data Lab Results Last 24 hrs: Laboratory Results - last 24 hr 06/22/21 06/22/21 06/22/21 Range/Units 18:40 19:05 19:15 WBC 9.88 H (4.23-9.07) K/mm3 RBC 5.37 (4.63-6.08) M/mm3 Hgb 11.8 L (13.7-17.5) gm/dl Hct 43.1 (40.1-51.0) % MCV 80.3 D (79.0-92.2) fl MCH 22.0 L (25.7-32.2) pg MCHC 27.4 L (32.2-35.5) g/dl RDW Std Deviation 59.5 H (35.1-43.9) fL Plt Count 446 H D (163-337) K/mm3 MPV 8.9 L (9.4-12.3) fl Neut % (Auto) 65.2 (34.0-67.9) % Lymph % (Auto) 18.3 L (21.8-53.1) % [place] % (Auto) 14.4 H (5.3-12.2) % Eos % (Auto) 1.5 (0.8-7.0) Baso % (Auto) 0.3 (0.1-1.2) % Neut # (Auto) 6.44 H (1.78-5.38) K/mm3 Lymph # (Auto) 1.81 (1.32-3.57) K/mm3 [place] # (Auto) 1.42 H (0.30-0.82) K/mm3 Eos # (Auto) 0.15 (0.04-0.54) K/mm3 Baso # (Auto) 0.03 (0.01-0.08) K/mm3 Manual Slide Review Abnormal smear PT (9.7-12.0) SECONDS INR D-Dimer, Quantitative 1.71 H (0.19-0.50) mg/L Sodium (136-145) mEq/L Potassium (3.5-5.1) mEq/L Chloride (98-107) mEq/L Carbon Dioxide (21-32) mEq/L Anion Gap (5-15) BUN (7-18) mg/dL Creatinine (0.7-1.3) mg/dL Est Cr Clr Drug Dosing mL/min Estimated GFR (MDRD) (>60) mL/min BUN/Creatinine Ratio (14-18) Glucose (70-99) mg/dL POC Glucose (70-99) mg/dL Calcium (8.5-10.1) mg/dL Total Bilirubin (0.2-1.0) mg/dL AST (15-37) U/L ALT (16-63) U/L Alkaline Phosphatase (46-116) U/L Troponin I (0.00-0.056) ng/mL C-Reactive Protein (<1.0) mg/dL NT-Pro-B Natriuret Pep (0-125) pg/mL Total Protein (6.4-8.2) g/dl Albumin (3.4-5.0) g/dl Globulin gm/dL Albumin/Globulin Ratio (1-2) SARS-CoV-2 RNA (HARRISON) Positive H (NEGATIVE) 06/22/21 06/22/21 06/22/21 Range/Units 19:15 19:15 19:15 WBC (4.23-9.07) K/mm3 RBC (4.63-6.08) M/mm3 Hgb (13.7-17.5) gm/dl Hct (40.1-51.0) % MCV (79.0-92.2) fl MCH (25.7-32.2) pg MCHC (32.2-35.5) g/dl RDW Std Deviation (35.1-43.9) fL Plt Count (163-337) K/mm3 MPV (9.4-12.3) fl Neut % (Auto) (34.0-67.9) % Lymph % (Auto) (21.8-53.1) % [place] % (Auto) (5.3-12.2) % Eos % (Auto) (0.8-7.0) Baso % (Auto) (0.1-1.2) % Neut # (Auto) (1.78-5.38) K/mm3 Lymph # (Auto) (1.32-3.57) K/mm3 [place] # (Auto) (0.30-0.82) K/mm3 Eos # (Auto) (0.04-0.54) K/mm3 Baso # (Auto) (0.01-0.08) K/mm3 Manual Slide Review PT 12.4 H (9.7-12.0) SECONDS INR 1.12 D-Dimer, Quantitative (0.19-0.50) mg/L Sodium 139 (136-145) mEq/L Potassium 4.4 (3.5-5.1) mEq/L Chloride 100 (98-107) mEq/L Carbon Dioxide 38 H (21-32) mEq/L Anion Gap 5.4 (5-15) BUN 10 (7-18) mg/dL Creatinine 0.9 (0.7-1.3) mg/dL Est Cr Clr Drug Dosing 137.97 mL/min Estimated GFR (MDRD) > 60 (>60) mL/min BUN/Creatinine Ratio 11.1 L (14-18) Glucose 116 H (70-99) mg/dL POC Glucose (70-99) mg/dL Calcium 8.7 (8.5-10.1) mg/dL Total Bilirubin 0.4 (0.2-1.0) mg/dL AST 30 (15-37) U/L ALT 33 (16-63) U/L Alkaline Phosphatase 84 (46-116) U/L Troponin I < 0.017 (0.00-0.056) ng/mL C-Reactive Protein 10.7 H* (<1.0) mg/dL NT-Pro-B Natriuret Pep 534 H (0-125) pg/mL Total Protein 7.8 (6.4-8.2) g/dl Albumin 2.5 L (3.4-5.0) g/dl Globulin 5.3 gm/dL Albumin/Globulin Ratio 0.5 L (1-2) SARS-CoV-2 RNA ([facility]ISON) (NEGATIVE) 06/23/21 Range/Units 06:33 WBC (4.23-9.07) K/mm3 RBC (4.63-6.08) M/mm3 Hgb (13.7-17.5) gm/dl Hct (40.1-51.0) % MCV (79.0-92.2) fl MCH (25.7-32.2) pg MCHC (32.2-35.5) g/dl RDW Std Deviation (35.1-43.9) fL Plt Count (163-337) K/mm3 MPV (9.4-12.3) fl Neut % (Auto) (34.0-67.9) % Lymph % (Auto) (21.8-53.1) % [place] % (Auto) (5.3-12.2) % Eos % (Auto) (0.8-7.0) Baso % (Auto) (0.1-1.2) % Neut # (Auto) (1.78-5.38) K/mm3 Lymph # (Auto) (1.32-3.57) K/mm3 [place] # (Auto) (0.30-0.82) K/mm3 Eos # (Auto) (0.04-0.54) K/mm3 Baso # (Auto) (0.01-0.08) K/mm3 Manual Slide Review PT (9.7-12.0) SECONDS INR D-Dimer, Quantitative (0.19-0.50) mg/L Sodium (136-145) mEq/L Potassium (3.5-5.1) mEq/L Chloride (98-107) mEq/L Carbon Dioxide (21-32) mEq/L Anion Gap (5-15) BUN (7-18) mg/dL Creatinine (0.7-1.3) mg/dL Est Cr Clr Drug Dosing mL/min Estimated GFR (MDRD) (>60) mL/min BUN/Creatinine Ratio (14-18) Glucose (70-99) mg/dL POC Glucose 146 H (70-99) mg/dL Calcium (8.5-10.1) mg/dL Total Bilirubin (0.2-1.0) mg/dL AST (15-37) U/L ALT (16-63) U/L Alkaline Phosphatase (46-116) U/L Troponin I (0.00-0.056) ng/mL C-Reactive Protein (<1.0) mg/dL NT-Pro-B Natriuret Pep (0-125) pg/mL Total Protein (6.4-8.2) g/dl Albumin (3.4-5.0) g/dl Globulin gm/dL Albumin/Globulin Ratio (1-2) SARS-CoV-2 RNA ([facility]ISON) (NEGATIVE) Result Diagrams: 06/23/21 09:05 06/23/21 09:05 Sepsis Event Note - Evaluation Sepsis Screening Result: No Definite Risk - Focused Exam Vital Signs: Vital Signs Temp Pulse Resp BP Pulse Ox Pulse Ox Pulse Ox 06/23/21 08:43 93 L 06/23/21 04:59 97.9 F 95 20 165/87 H 92 L 06/23/21 03:10 86 L 06/23/21 02:02 84 L 06/23/21 01:30 95 06/22/21 22:43 98.1 F 84 22 H 159/83 H 94 L - Problem List (1) Morbid obesity SNOMED Code(s): 963821269 ICD Code: E66.01 - MORBID (SEVERE) OBESITY DUE TO EXCESS CALORIES Status: Chronic Priority: Medium Current Visit: Yes (2) Tobacco dependence SNOMED Code(s): 04198047 ICD Code: F17.200 - NICOTINE DEPENDENCE, UNSPECIFIED, UNCOMPLICATED Status: Chronic Priority: Medium Current Visit: Yes (3) Type II diabetes mellitus SNOMED Code(s): 21098147 ICD Code: E11.9 - TYPE 2 DIABETES MELLITUS WITHOUT COMPLICATIONS Status: Chronic Priority: Medium Current Visit: No Qualifiers: Diabetes mellitus shelter insulin use: without ferry terminal agent use Diabetes mellitus complication status: with other specified complication Qualified Code(s): E11.69 - Type 2 diabetes mellitus with other specified complication (4) JORGE L (iron deficiency anemia) SNOMED Code(s): 69764666 ICD Code: D50.9 - IRON DEFICIENCY ANEMIA, UNSPECIFIED Status: Chronic Priority: Low Current Visit: No Qualifiers: Iron deficiency anemia type: unspecified iron deficiency Qualified Code(s): D50.9 - Iron deficiency anemia, unspecified (5) Acute hypoxemic respiratory failure SNOMED Code(s): 615429618 ICD Code: J96.01 - ACUTE RESPIRATORY FAILURE WITH HYPOXIA Status: Acute Priority: High Current Visit: Yes (6) Anasarca SNOMED Code(s): 306771596, 569702635 ICD Code: R60.1 - GENERALIZED EDEMA Status: Acute Priority: High Current Visit: Yes (7) COVID-19 SNOMED Code(s): 775457962 ICD Code: U07.1 - COVID-19 Status: Acute Priority: High Current Visit: Yes (8) Vitamin D deficiency SNOMED Code(s): 53741164 ICD Code: E55.9 - VITAMIN D DEFICIENCY, UNSPECIFIED Status: Acute Priority: Medium Current Visit: Yes (9) Elevated d-dimer SNOMED Code(s): 511153860 ICD Code: R79.89 - OTHER SPECIFIED ABNORMAL FINDINGS OF BLOOD CHEMISTRY Status: Acute Current Visit: Yes Problem List Initiated/Reviewed/Updated: Yes Orders Last 24hrs: Active Orders 24 hr Category Date Time Status Admission Status [Patient Status] [ADT] Routine ADT 06/22/21 20:44 Active Daily Weight [Height and Weight] [RC] 06 Care 06/23/21 00:43 Active Incentive Spirometry [RT Incentive Spirometry] [RC] Care 06/23/21 08:43 Active Q1HWA RT BiPAP/CPAP [RC] ASDIRECTED Care 06/23/21 00:59 Active Telemetry Monitoring [Cardiac Monitoring] [RC] . Care 06/23/21 00:38 Active DIRECTED Up With Assistance [] ASDIRECTED Care 06/23/21 00:39 Active Adult Diet [DIET] Diet 06/23/21 Breakfast Active Acetaminophen [TylenoL] Med 06/23/21 00:35 Active 650 mg PO Q4H PRN Enoxaparin [Lovenox] Med 06/22/21 23:00 Active 230 mg SUBCUT DAILY Ibuprofen [Motrin] Med 06/23/21 00:36 Active 600 mg PO Q6H PRN Sodium Chloride 0.9% [Normal Saline] 100 ml Med 06/22/21 21:30 Active IV ASDIRECTED Pulse Oximetry Continuous Monitoring [OM.PC] Routine Oth 06/23/21 00:37 Active Code Status [Resuscitation Status] Routine Resus Stat 06/23/21 00:24 Ordered Medication Orders Acetaminophen (Acetaminophen 325 Mg Tab) 650 mg PO Q4H PRN PRN Reason: Pain/Fever Enoxaparin Sodium (Enoxaparin 150 Mg/1 Ml Syringe) 230 mg 1 mg/kg (230 mg) SUBCUT DAILY [facility] Last Admin: 06/23/21 08:23 Dose: 230 mg Documented by: Admin: 06/22/21 23:57 Dose: 230 mg Documented by: [facility] Sodium Chloride (Normal Saline) 100 mls @ 70 mls/min IV ASDIRECTED [facility] Ibuprofen (Ibuprofen 600 Mg Tab) 600 mg PO Q6H PRN PRN Reason: Pain/Fever Assessment/Plan Comment:: COVID-19 Acute hypoxemic respiratory failure * Prone whenever able. * CPAP when sleeping/napping * Check procalcitonin * Oxygen as needed with goal saturation between 88 and 95%. * RT consult * Monitor need for high flow oxygen * Zinc supplementation * Famotidine 20 mg twice daily * Dexamethasone 6 mg for 10 days total * Remdesivir for 5 days total * Continuous pulse oximetry * Telemetry * I-S/Acapella * Airborne/contact precautions Morbid obesity * Dietitian consult Tobacco dependence * Cessation counseling * Nicotine patch while hospitalized * Offer nicotine patches at discharge Type II diabetes mellitus * Hold home p.o. semaglutide * 4 times daily before meals and bedtime blood glucose checks * Low intensity sliding scale insulin * A1c 7.6 * Dietitian consult * Consider visual educator JORGE L (iron deficiency anemia) * No acute concerns * No home iron supplementation * Monitor Vitamin D deficiency * Vitamin D 21.7 * Start 5000 unit daily supplementation Anasarca * Question heart failure component * Hold home Cozaar and continue other diuretics * 20 mg twice daily diuretic dosing Lasix IV push * Echocardiogram ordered * HAJA hose * Monitor daily weights * Monitor intake and output Elevated D-Dimer * Unfortunately patient unable to fit in CT scanner for CTA * Monitor D-dimer every 48 * Lovenox 1 mg/kg twice daily Code status: Full Code PCP: Yelena Torrez PA-C DVT prophylaxis: Lovenox Disposition: Patient admitted to the floor for treatment and management of his COVID-19 pneumonia and acute respiratory failure. We will also work-up his edema and concerns for heart failure. Length of stay likely 4 to 5 days pending progress - Mortality Measure Prognosis:: Poor (Unfortunately given patient's morbid obesity and chronic medical conditions he is at very high risk for deterioration and overall poor outcome.)
[2021-06-23] MEDS ORDERED: Albuterol 6.7 GM Inhaler INH PRN (09:01)
[2021-06-23] MEDS ORDERED: Ondansetron 4 MG/2 ML SDV IV PRN (09:01)
[2021-06-23] MEDS ORDERED: Semaglutide [Rybelsus] 7 MG Tablet PO SCH (09:15)
[2021-06-23] MEDS ORDERED: Furosemide 40 MG Tab PO SCH (09:15)
[2021-06-23] MEDS ORDERED: Losartan 100 MG Tab PO SCH (09:30)
[2021-06-23] MEDS: Dexamethasone 4 MG Tab PO SCH (09:40)
[2021-06-23] MEDS: atorvaSTATin 40 MG Tab PO SCH (09:40)
[2021-06-23] MEDS: Zinc Sulfate 220 MG Cap PO SCH (09:43)
[2021-06-23] MEDS: amLODIPine 10 MG Tab PO SCH (09:43)
[2021-06-23] MEDS: Hydrochlorothiazide 25 MG Tab PO SCH (09:43)
[2021-06-23 10:28] LABS: HEMOGLOBIN A1C 7.6 %
[2021-06-23 10:55] LABS: VITAMIN D,25-HYDROXY 21.7 ng/ml (30.0-100.0)
[2021-06-23] MEDS: Insulin Lispro 100 Unit/ML 3 ML KwikPen SUBCUT SCH ×3 (12:12→22:15)
[2021-06-23] MEDS: Cholecalciferol (Vitamin D3) 5,000 UNIT Cap PO SCH (13:05)
[2021-06-23] MEDS: Nicotine 14 MG/24 Hr Patch TRDERM SCH (13:05)
[2021-06-23] MEDS: Furosemide 20 MG/2 ML VIAL IVPUSH SCH (13:05)
[2021-06-23] MEDS: Famotidine 20 MG Tab PO SCH (20:23)
[2021-06-23] MEDS: REMDESIVIR 100 MG in Sodium Chloride 0.9% 250 ML IV SCH (20:23)
[2021-06-23] MEDS: Albuterol/Ipratropium 3.0-0.5 MG/3 ML Neb Soln NEB PRN (21:16)
[2021-06-23] MEDS: guaiFENesin 100 MG/5 ML Soln 10 ML UD Cup PO PRN (21:48)
[2021-06-24] MEDS: guaiFENesin 100 MG/5 ML Soln 10 ML UD Cup PO PRN ×2 (05:55→21:21)
[2021-06-24] MEDS: Furosemide 20 MG/2 ML VIAL IVPUSH SCH (05:56)
--- NOTE | 2021-06-24 07:01 | PCM.PN ---
- General Info Date of Service: 06/24/21 Admission Dx/Problem (Free Text): Admission Diagnosis/Problem Admission Diagnosis/Problem Hypoxia Functional Status: Reports: Pain Controlled, Tolerating Diet, Ambulating, Urinating, New Symptoms (Worsening edema ), Incentive Spirometry, Other (acapella ) - Review of Systems General: Reports: Weakness, Fatigue, Malaise. Denies: Fever, Chills HEENT: Reports: No Symptoms. Denies: Headaches, Sore Throat Pulmonary: Reports: Shortness of Breath, Cough, Sputum. Denies: Pleuritic Chest Pain, Wheezing Cardiovascular: Reports: Dyspnea on Exertion, Edema (Worseing ). Denies: Chest Pain, Palpitations Gastrointestinal: Reports: No Symptoms. Denies: Abdominal Pain, Constipation, Diarrhea, Nausea, Vomiting Genitourinary: Reports: No Symptoms. Denies: Pain Musculoskeletal: Reports: No Symptoms Skin: Reports: No Symptoms Neurological: Reports: Difficulty Walking (2/2 swelling), Weakness. Denies: Confusion, Dizziness, Headache, Numbness, Pre-Existing Deficit, Seizure, Syncope, Tingling, Trouble Speaking Psychiatric: Reports: No Symptoms. Denies: Confusion - Patient Data Vitals - Most Recent: Last Vital Signs Temp 97.5 F 06/24/21 04:05 Pulse 77 06/24/21 04:05 Resp 20 06/24/21 04:05 BP 153/62 H 06/24/21 04:05 Pulse Ox 95 06/24/21 04:05 Weight - Most Recent: 498 lb 14.4 oz I&O - Last 24 Hours: Intake & Output 06/23/21 06/24/21 06/24/21 22:59 06:59 14:59 Intake Total 2014 Lab Results Last 24 Hours: Laboratory Results - last 24 hr 06/23/21 06/23/21 06/23/21 Range/Units 09:05 09:05 09:11 WBC 10.34 H (4.23-9.07) K/mm3 RBC 5.24 (4.63-6.08) M/mm3 Hgb 11.1 L (13.7-17.5) gm/dl Hct 43.0 (40.1-51.0) % MCV 82.1 (79.0-92.2) fl MCH 21.2 L (25.7-32.2) pg MCHC 25.8 L (32.2-35.5) g/dl RDW Std Deviation 61.2 H (35.1-43.9) fL Plt Count 421 H (163-337) K/mm3 MPV 9.2 L (9.4-12.3) fl Neut % (Auto) 81.2 H (34.0-67.9) % Lymph % (Auto) 9.6 L (21.8-53.1) % [place] % (Auto) 8.5 (5.3-12.2) % Eos % (Auto) 0.1 L (0.8-7.0) Baso % (Auto) 0.1 (0.1-1.2) % Neut # (Auto) 8.40 H (1.78-5.38) K/mm3 Lymph # (Auto) 0.99 L (1.32-3.57) K/mm3 [place] # (Auto) 0.88 H (0.30-0.82) K/mm3 Eos # (Auto) 0.01 L (0.04-0.54) K/mm3 Baso # (Auto) 0.01 (0.01-0.08) K/mm3 Manual Slide Review Abnormal smear Sodium 139 (136-145) mEq/L Potassium 5.0 (3.5-5.1) mEq/L Chloride 99 (98-107) mEq/L Carbon Dioxide 36 H (21-32) mEq/L Anion Gap 9.0 (5-15) BUN 14 (7-18) mg/dL Creatinine 0.8 (0.7-1.3) mg/dL Est Cr Clr Drug Dosing 155.22 mL/min Estimated GFR (MDRD) > 60 (>60) mL/min BUN/Creatinine Ratio 17.5 (14-18) Glucose 163 H (70-99) mg/dL POC Glucose (70-99) mg/dL Hemoglobin A1c 7.6 H ( - 5.6) % Calcium 8.1 L (8.5-10.1) mg/dL Magnesium 2.1 (1.8-2.4) mg/dL Total Bilirubin 0.4 (0.2-1.0) mg/dL AST 26 (15-37) U/L ALT 31 (16-63) U/L Alkaline Phosphatase 82 (46-116) U/L C-Reactive Protein 11.3 H* (<1.0) mg/dL Total Protein 7.3 (6.4-8.2) g/dl Albumin 2.4 L (3.4-5.0) g/dl Globulin 4.9 gm/dL Albumin/Globulin Ratio 0.5 L (1-2) Vitamin D 25-Hydroxy 21.7 L (30.0-100.0) ng/ml 06/23/21 06/23/21 06/23/21 Range/Units 12:01 16:12 21:46 WBC (4.23-9.07) K/mm3 RBC (4.63-6.08) M/mm3 Hgb (13.7-17.5) gm/dl Hct (40.1-51.0) % MCV (79.0-92.2) fl MCH (25.7-32.2) pg MCHC (32.2-35.5) g/dl RDW Std Deviation (35.1-43.9) fL Plt Count (163-337) K/mm3 MPV (9.4-12.3) fl Neut % (Auto) (34.0-67.9) % Lymph % (Auto) (21.8-53.1) % [place] % (Auto) (5.3-12.2) % Eos % (Auto) (0.8-7.0) Baso % (Auto) (0.1-1.2) % Neut # (Auto) (1.78-5.38) K/mm3 Lymph # (Auto) (1.32-3.57) K/mm3 [place] # (Auto) (0.30-0.82) K/mm3 Eos # (Auto) (0.04-0.54) K/mm3 Baso # (Auto) (0.01-0.08) K/mm3 Manual Slide Review Sodium (136-145) mEq/L Potassium (3.5-5.1) mEq/L Chloride (98-107) mEq/L Carbon Dioxide (21-32) mEq/L Anion Gap (5-15) BUN (7-18) mg/dL Creatinine (0.7-1.3) mg/dL Est Cr Clr Drug Dosing mL/min Estimated GFR (MDRD) (>60) mL/min BUN/Creatinine Ratio (14-18) Glucose (70-99) mg/dL POC Glucose 146 H 129 H 136 H (70-99) mg/dL Hemoglobin A1c ( - 5.6) % Calcium (8.5-10.1) mg/dL Magnesium (1.8-2.4) mg/dL Total Bilirubin (0.2-1.0) mg/dL AST (15-37) U/L ALT (16-63) U/L Alkaline Phosphatase (46-116) U/L C-Reactive Protein (<1.0) mg/dL Total Protein (6.4-8.2) g/dl Albumin (3.4-5.0) g/dl Globulin gm/dL Albumin/Globulin Ratio (1-2) Vitamin D 25-Hydroxy (30.0-100.0) ng/ml 06/24/21 06/24/21 06/24/21 Range/Units 05:03 05:03 06:29 WBC 11.22 H (4.23-9.07) K/mm3 RBC 5.22 (4.63-6.08) M/mm3 Hgb 11.3 L (13.7-17.5) gm/dl Hct 42.2 (40.1-51.0) % MCV 80.8 (79.0-92.2) fl MCH 21.6 L (25.7-32.2) pg MCHC 26.8 L (32.2-35.5) g/dl RDW Std Deviation 60.0 H (35.1-43.9) fL Plt Count 409 H (163-337) K/mm3 MPV 9.7 (9.4-12.3) fl Neut % (Auto) 72.0 H (34.0-67.9) % Lymph % (Auto) 14.1 L (21.8-53.1) % [place] % (Auto) 13.4 H (5.3-12.2) % Eos % (Auto) 0.1 L (0.8-7.0) Baso % (Auto) 0.1 (0.1-1.2) % Neut # (Auto) 8.09 H (1.78-5.38) K/mm3 Lymph # (Auto) 1.58 (1.32-3.57) K/mm3 [place] # (Auto) 1.50 H (0.30-0.82) K/mm3 Eos # (Auto) 0.01 L (0.04-0.54) K/mm3 Baso # (Auto) 0.01 (0.01-0.08) K/mm3 Manual Slide Review Sodium 140 (136-145) mEq/L Potassium 4.8 (3.5-5.1) mEq/L Chloride 99 (98-107) mEq/L Carbon Dioxide 38 H (21-32) mEq/L Anion Gap 7.8 (5-15) BUN 15 (7-18) mg/dL Creatinine 0.8 (0.7-1.3) mg/dL Est Cr Clr Drug Dosing 155.22 mL/min Estimated GFR (MDRD) > 60 (>60) mL/min BUN/Creatinine Ratio 18.8 H (14-18) Glucose 112 H (70-99) mg/dL POC Glucose 108 H (70-99) mg/dL Hemoglobin A1c ( - 5.6) % Calcium 8.5 (8.5-10.1) mg/dL Magnesium 2.1 (1.8-2.4) mg/dL Total Bilirubin 0.3 (0.2-1.0) mg/dL AST 24 (15-37) U/L ALT 13 L (16-63) U/L Alkaline Phosphatase 80 (46-116) U/L C-Reactive Protein 6.4 H* (<1.0) mg/dL Total Protein 7.2 (6.4-8.2) g/dl Albumin 2.5 L (3.4-5.0) g/dl Globulin 4.7 gm/dL Albumin/Globulin Ratio 0.5 L (1-2) Vitamin D 25-Hydroxy (30.0-100.0) ng/ml Can Results Last 24 Hours: Microbiology 06/24/21 02:00 Stool Occult Blood (CAN) - Final Stool / Feces Med Orders - Current: Current Medications Acetaminophen (Acetaminophen 325 Mg Tab) 650 mg PO Q4H PRN PRN Reason: Pain/Fever Albuterol (Albuterol 6.7 Gm Inhaler) 0 gm INH Q2H PRN PRN Reason: SOB/Wheezing Albuterol/Ipratropium (Albuterol/Ipratropium 3.0-0.5 Mg/3 Ml Neb Soln) 3 ml NEB QIDRT PRN PRN Reason: Shortness Of Breath/wheezing Last Admin: 06/23/21 21:16 Dose: 3 ml Documented by: Amlodipine Besylate (Amlodipine 10 Mg Tab) 10 mg PO DAILY [facility] Last Admin: 06/23/21 09:43 Dose: 10 mg Documented by: Atorvastatin Calcium (Atorvastatin 40 Mg Tab) 40 mg PO DAILY [facility] Last Admin: 06/23/21 09:40 Dose: 40 mg Documented by: Cholecalciferol (Cholecalciferol (Vitamin D3) 5,000 Unit Cap) 5,000 unit PO DAILY [facility] Last Admin: 06/23/21 13:05 Dose: 5,000 unit Documented by: Dexamethasone (Dexamethasone 4 Mg Tab) 6 mg PO DAILY [facility] Stop: 07/01/21 09:01 Last Admin: 06/23/21 09:40 Dose: 6 mg Documented by: Diltiazem HCl (Diltiazem 180 Mg Cap.Cd) 180 mg PO DAILY [facility] Enoxaparin Sodium (Enoxaparin 150 Mg/1 Ml Syringe) 230 mg SUBCUT Q12H [facility] Last Admin: 06/23/21 20:23 Dose: 230 mg Documented by: Famotidine (Famotidine 20 Mg Tab) 20 mg PO BID [facility] Last Admin: 06/23/21 20:23 Dose: 20 mg Documented by: Furosemide (Furosemide 20 Mg/2 Ml Vial) 20 mg IVPUSH BIDDIURETIC [facility] Last Admin: 06/24/21 05:56 Dose: 20 mg Documented by: Guaifenesin (Guaifenesin 100 Mg/5 Ml Soln 10 Ml Ud Cup) 200 mg PO Q4H PRN PRN Reason: Cough Last Admin: 06/24/21 05:55 Dose: 200 mg Documented by: Hydrochlorothiazide (Hydrochlorothiazide 25 Mg Tab) 25 mg PO DAILY [facility] Last Admin: 06/23/21 09:43 Dose: 25 mg Documented by: Remdesivir 100 mg/ Sodium (Chloride) 250 mls @ 250 mls/hr IV Q24H [facility] Stop: 06/26/21 20:59 Last Admin: 06/23/21 20:23 Dose: 250 mls/hr Documented by: Ibuprofen (Ibuprofen 600 Mg Tab) 600 mg PO Q6H PRN PRN Reason: Pain/Fever Insulin Human Lispro (Insulin Lispro 100 Unit/Ml 3 Ml Kwikpen) 0 unit SUBCUT QIDACANDBED [facility]; Protocol Last Admin: 06/23/21 22:15 Dose: Not Given Documented by: Miscellaneous Information (Remove Patch) 0 ea TRDERM DAILY [facility] Nicotine (Nicotine 14 Mg/24 Hr Patch) 14 mg TRDERM DAILY [facility] Last Admin: 06/23/21 13:05 Dose: 14 mg Documented by: Ondansetron HCl (Ondansetron 4 Mg/2 Ml Sdv) 4 mg IV Q6H PRN PRN Reason: Nausea/Vomiting Zinc Sulfate (Zinc Sulfate 220 Mg Cap) 220 mg PO DAILY [facility] Last Admin: 06/23/21 09:43 Dose: 220 mg Documented by: Discontinued Medications Dexamethasone (Dexamethasone 4 Mg/Ml 5 Ml Mdv) 6 mg IV ONETIME ONE Stop: 06/22/21 20:25 Last Admin: 06/22/21 21:09 Dose: 6 mg Documented by: Enoxaparin Sodium (Enoxaparin 150 Mg/1 Ml Syringe) 230 mg 1 mg/kg (230 mg) SUBCUT DAILY [facility] Last Admin: 06/23/21 08:23 Dose: 230 mg Documented by: Furosemide (Furosemide 40 Mg/4 Ml Vial) 40 mg IVPUSH NOW ONE Stop: 06/22/21 20:25 Last Admin: 06/22/21 21:07 Dose: 40 mg Documented by: Furosemide (Furosemide 40 Mg Tab) 40 mg PO DAILY [facility] Last Admin: 06/23/21 09:44 Dose: 40 mg Documented by: Remdesivir 200 mg/ Sodium (Chloride) 250 mls @ 250 mls/hr IV ONETIME ONE Stop: 06/22/21 20:26 Last Admin: 06/22/21 21:09 Dose: 250 mls/hr Documented by: Sodium Chloride (Normal Saline) 100 mls @ 70 mls/min IV ASDIRECTED [facility] Iopamidol (Iopamidol 755 Mg/Ml 100 Ml Bottle) 100 ml IVPUSH ONETIME ONE Stop: 06/22/21 21:20 Last Admin: 06/22/21 21:43 Dose: Not Given Documented by: Losartan Potassium (Losartan 100 Mg Tab) 100 mg PO DAILY [facility] Last Admin: 06/23/21 09:41 Dose: 100 mg Documented by: Semaglutide [ Rybelsus] 7 Mg Tablet 0 each PO DAILY [place] Sodium Chloride (Sodium Chloride 0.9% 10 Ml Sdv) 10 ml FLUSH ONETIME ONE Stop: 06/22/21 21:20 Last Admin: 06/22/21 21:43 Dose: Not Given Documented by: - Exam Quality Assessment: Supplemental Oxygen (4L), DVT Prophylaxis. No: Central Line/PICC, Urine Catheter General: Alert, Oriented HEENT: Pupils Equal, Pupils Reactive, Mucous Membr. Moist/[place] Neck: Supple, Trachea Midline Lungs: Normal Respiratory Effort, Decreased Breath Sounds, Crackles, Rhonchi, Wheezing Cardiovascular: Regular Rate, Regular Rhythm GI/Abdominal Exam: Normal Bowel Sounds, Soft, Non-Tender, No Distention (Male) Exam: Deferred Back Exam: Normal Inspection, Full Range of Motion Extremities: Non-Tender, Pedal Edema (4+ up into abdomen ), Limited Range of Motion (2/2 swelling ), Other (Bilateral lower extremity discoloration con sistent with peripheral vascular disease) Skin: Warm, Dry, Intact Neurological: No New Focal Deficit Psy/Mental Status: Alert, Normal Affect, Normal Mood - Patient Data Lab Results Last 24 hrs: Laboratory Results - last 24 hr 06/23/21 06/23/21 06/23/21 Range/Units 09:05 09:05 09:11 WBC 10.34 H (4.23-9.07) K/mm3 RBC 5.24 (4.63-6.08) M/mm3 Hgb 11.1 L (13.7-17.5) gm/dl Hct 43.0 (40.1-51.0) % MCV 82.1 (79.0-92.2) fl MCH 21.2 L (25.7-32.2) pg MCHC 25.8 L (32.2-35.5) g/dl RDW Std Deviation 61.2 H (35.1-43.9) fL Plt Count 421 H (163-337) K/mm3 MPV 9.2 L (9.4-12.3) fl Neut % (Auto) 81.2 H (34.0-67.9) % Lymph % (Auto) 9.6 L (21.8-53.1) % [place] % (Auto) 8.5 (5.3-12.2) % Eos % (Auto) 0.1 L (0.8-7.0) Baso % (Auto) 0.1 (0.1-1.2) % Neut # (Auto) 8.40 H (1.78-5.38) K/mm3 Lymph # (Auto) 0.99 L (1.32-3.57) K/mm3 [place] # (Auto) 0.88 H (0.30-0.82) K/mm3 Eos # (Auto) 0.01 L (0.04-0.54) K/mm3 Baso # (Auto) 0.01 (0.01-0.08) K/mm3 Manual Slide Review Abnormal smear Sodium 139 (136-145) mEq/L Potassium 5.0 (3.5-5.1) mEq/L Chloride 99 (98-107) mEq/L Carbon Dioxide 36 H (21-32) mEq/L Anion Gap 9.0 (5-15) BUN 14 (7-18) mg/dL Creatinine 0.8 (0.7-1.3) mg/dL Est Cr Clr Drug Dosing 155.22 mL/min Estimated GFR (MDRD) > 60 (>60) mL/min BUN/Creatinine Ratio 17.5 (14-18) Glucose 163 H (70-99) mg/dL POC Glucose (70-99) mg/dL Hemoglobin A1c 7.6 H ( - 5.6) % Calcium 8.1 L (8.5-10.1) mg/dL Magnesium 2.1 (1.8-2.4) mg/dL Total Bilirubin 0.4 (0.2-1.0) mg/dL AST 26 (15-37) U/L ALT 31 (16-63) U/L Alkaline Phosphatase 82 (46-116) U/L C-Reactive Protein 11.3 H* (<1.0) mg/dL Total Protein 7.3 (6.4-8.2) g/dl Albumin 2.4 L (3.4-5.0) g/dl Globulin 4.9 gm/dL Albumin/Globulin Ratio 0.5 L (1-2) Vitamin D 25-Hydroxy 21.7 L (30.0-100.0) ng/ml 06/23/21 06/23/21 06/23/21 Range/Units 12:01 16:12 21:46 WBC (4.23-9.07) K/mm3 RBC (4.63-6.08) M/mm3 Hgb (13.7-17.5) gm/dl Hct (40.1-51.0) % MCV (79.0-92.2) fl MCH (25.7-32.2) pg MCHC (32.2-35.5) g/dl RDW Std Deviation (35.1-43.9) fL Plt Count (163-337) K/mm3 MPV (9.4-12.3) fl Neut % (Auto) (34.0-67.9) % Lymph % (Auto) (21.8-53.1) % [place] % (Auto) (5.3-12.2) % Eos % (Auto) (0.8-7.0) Baso % (Auto) (0.1-1.2) % Neut # (Auto) (1.78-5.38) K/mm3 Lymph # (Auto) (1.32-3.57) K/mm3 [place] # (Auto) (0.30-0.82) K/mm3 Eos # (Auto) (0.04-0.54) K/mm3 Baso # (Auto) (0.01-0.08) K/mm3 Manual Slide Review Sodium (136-145) mEq/L Potassium (3.5-5.1) mEq/L Chloride (98-107) mEq/L Carbon Dioxide (21-32) mEq/L Anion Gap (5-15) BUN (7-18) mg/dL Creatinine (0.7-1.3) mg/dL Est Cr Clr Drug Dosing mL/min Estimated GFR (MDRD) (>60) mL/min BUN/Creatinine Ratio (14-18) Glucose (70-99) mg/dL POC Glucose 146 H 129 H 136 H (70-99) mg/dL Hemoglobin A1c ( - 5.6) % Calcium (8.5-10.1) mg/dL Magnesium (1.8-2.4) mg/dL Total Bilirubin (0.2-1.0) mg/dL AST (15-37) U/L ALT (16-63) U/L Alkaline Phosphatase (46-116) U/L C-Reactive Protein (<1.0) mg/dL Total Protein (6.4-8.2) g/dl Albumin (3.4-5.0) g/dl Globulin gm/dL Albumin/Globulin Ratio (1-2) Vitamin D 25-Hydroxy (30.0-100.0) ng/ml 06/24/21 06/24/21 06/24/21 Range/Units 05:03 05:03 06:29 WBC 11.22 H (4.23-9.07) K/mm3 RBC 5.22 (4.63-6.08) M/mm3 Hgb 11.3 L (13.7-17.5) gm/dl Hct 42.2 (40.1-51.0) % MCV 80.8 (79.0-92.2) fl MCH 21.6 L (25.7-32.2) pg MCHC 26.8 L (32.2-35.5) g/dl RDW Std Deviation 60.0 H (35.1-43.9) fL Plt Count 409 H (163-337) K/mm3 MPV 9.7 (9.4-12.3) fl Neut % (Auto) 72.0 H (34.0-67.9) % Lymph % (Auto) 14.1 L (21.8-53.1) % [place] % (Auto) 13.4 H (5.3-12.2) % Eos % (Auto) 0.1 L (0.8-7.0) Baso % (Auto) 0.1 (0.1-1.2) % Neut # (Auto) 8.09 H (1.78-5.38) K/mm3 Lymph # (Auto) 1.58 (1.32-3.57) K/mm3 [place] # (Auto) 1.50 H (0.30-0.82) K/mm3 Eos # (Auto) 0.01 L (0.04-0.54) K/mm3 Baso # (Auto) 0.01 (0.01-0.08) K/mm3 Manual Slide Review Sodium 140 (136-145) mEq/L Potassium 4.8 (3.5-5.1) mEq/L Chloride 99 (98-107) mEq/L Carbon Dioxide 38 H (21-32) mEq/L Anion Gap 7.8 (5-15) BUN 15 (7-18) mg/dL Creatinine 0.8 (0.7-1.3) mg/dL Est Cr Clr Drug Dosing 155.22 mL/min Estimated GFR (MDRD) > 60 (>60) mL/min BUN/Creatinine Ratio 18.8 H (14-18) Glucose 112 H (70-99) mg/dL POC Glucose 108 H (70-99) mg/dL Hemoglobin A1c ( - 5.6) % Calcium 8.5 (8.5-10.1) mg/dL Magnesium 2.1 (1.8-2.4) mg/dL Total Bilirubin 0.3 (0.2-1.0) mg/dL AST 24 (15-37) U/L ALT 13 L (16-63) U/L Alkaline Phosphatase 80 (46-116) U/L C-Reactive Protein 6.4 H* (<1.0) mg/dL Total Protein 7.2 (6.4-8.2) g/dl Albumin 2.5 L (3.4-5.0) g/dl Globulin 4.7 gm/dL Albumin/Globulin Ratio 0.5 L (1-2) Vitamin D 25-Hydroxy (30.0-100.0) ng/ml Result Diagrams: 06/24/21 05:03 06/24/21 05:03 Can Results Last 24 hrs: Microbiology 06/24/21 02:00 Stool Occult Blood (CAN) - Final Stool / Feces Sepsis Event Note - Evaluation Sepsis Screening Result: No Definite Risk - Focused Exam Vital Signs: Vital Signs Temp Pulse Resp BP Pulse Ox Pulse Ox Pulse Ox 06/24/21 04:05 97.5 F 77 20 153/62 H 95 06/24/21 04:00 91 L 06/24/21 00:29 97.0 F 82 16 135/91 H 98 06/23/21 23:53 93 L 06/23/21 21:17 98 06/23/21 20:17 99.0 F 86 22 H 145/73 H 94 L - Problem List & Annotations (1) Morbid obesity SNOMED Code(s): 292957773 Code(s): E66.01 - MORBID (SEVERE) OBESITY DUE TO EXCESS CALORIES Status: Chronic Priority: Medium Current Visit: Yes (2) Tobacco dependence SNOMED Code(s): 06085618 Code(s): F17.200 - NICOTINE DEPENDENCE, UNSPECIFIED, UNCOMPLICATED Status: Chronic Priority: Medium Current Visit: Yes (3) Type II diabetes mellitus SNOMED Code(s): 87442104 Code(s): E11.9 - TYPE 2 DIABETES MELLITUS WITHOUT COMPLICATIONS Status: Chronic Priority: Medium Current Visit: No Qualifiers: Diabetes mellitus alf insulin use: without alf use Diabetes mellitus complication status: with other specified complication Qualified Code(s): E11.69 - Type 2 diabetes mellitus with other specified complication (4) JORGE L (iron deficiency anemia) SNOMED Code(s): 68627901 Code(s): D50.9 - IRON DEFICIENCY ANEMIA, UNSPECIFIED Status: Chronic Priority: Low Current Visit: No Qualifiers: Iron deficiency anemia type: unspecified iron deficiency Qualified Code(s): D50.9 - Iron deficiency anemia, unspecified (5) Acute hypoxemic respiratory failure SNOMED Code(s): 723634821 Code(s): J96.01 - ACUTE RESPIRATORY FAILURE WITH HYPOXIA Status: Acute Priority: High Current Visit: Yes (6) Anasarca SNOMED Code(s): 652283378, 763274892 Code(s): R60.1 - GENERALIZED EDEMA Status: Acute Priority: High Current Visit: Yes (7) COVID-19 SNOMED Code(s): 844068591 Code(s): U07.1 - COVID-19 Status: Acute Priority: High Current Visit: Yes (8) Vitamin D deficiency SNOMED Code(s): 67600776 Code(s): E55.9 - VITAMIN D DEFICIENCY, UNSPECIFIED Status: Acute Priority: Medium Current Visit: Yes (9) Elevated d-dimer SNOMED Code(s): 247235095 Code(s): R79.89 - OTHER SPECIFIED ABNORMAL FINDINGS OF BLOOD CHEMISTRY Status: Acute Current Visit: Yes - Problem List Review Problem List Initiated/Reviewed/Updated: Yes - My Orders Last 24 Hours: My Active Orders 06/23/21 08:55 Patient Status [ADT] Routine 06/23/21 08:57 Nurse Communication: Isolation [RC] ASDIRECTED Positioning, Patient [RC] ASDIRECTED Isolation [COMM] Stat RT Acapella [RESPCARE] Routine 06/23/21 09:00 dexAMETHasone 6 mg PO DAILY 06/23/21 09:01 Intake and Output [RC] 04,16 Oxygen Therapy [RC] ASDIRECTED Vital Signs [RC] Q4HR Consult to Drug Abuse Resistance Education Officer [CONS] Routine Albuterol [Proventil HFA] See Dose Instructions INH Q2H PRN Albuterol/Ipratropium [DuoNeb 3.0-0.5 MG/3 ML] 3 ml NEB QIDRT PRN Ondansetron [Zofran] 4 mg IV Q6H PRN 06/23/21 09:02 RT Aerosol Therapy [RC] ASDIRECTED 06/23/21 09:05 Consult to Respiratory Therapy [Respiratory Care Assess and Treatment] [CONS] Routine 06/23/21 09:11 Blood Glucose Check, Bedside [RC] QIDACANDBED 06/23/21 09:15 Zinc Sulfate [Zincate] 220 mg PO DAILY amLODIPine [Norvasc] 10 mg PO DAILY atorvaSTATin [Lipitor] 40 mg PO DAILY hydroCHLOROthiazide 25 mg PO DAILY 06/23/21 Lunch Consistent Carbohydrate Diet [DIET] Insulin Lispro [HumaLOG] See Protocol SUBCUT QIDACANDBED 06/23/21 12:01 Antiembolic Devices [RC] PER UNIT ROUTINE HAJA Hose [Antiembolic Hose] [OM.PC] Routine 06/23/21 12:15 Cholecalciferol (Vitamin D3) [Vitamin D3] 5,000 unit PO DAILY Nicotine [Habitrol] 14 mg TRDERM DAILY 06/23/21 14:00 Furosemide [Lasix] 20 mg IVPUSH BIDDIURETIC 06/23/21 20:00 Remdesivir 100 mg Sodium Chloride 0.9% [Normal Saline] 250 ml IV Q24H 06/23/21 21:00 Enoxaparin [Lovenox] 230 mg SUBCUT Q12H Famotidine [Pepcid] 20 mg PO BID 06/24/21 05:03 CBC WITH AUTO DIFF [HEME] AM 06/24/21 09:00 Diltiazem [Cardizem CD] 180 mg PO DAILY Remove Patch 0 ea TRDERM DAILY 06/25/21 05:11 C-REACTIVE PROTEIN [CHEM] AM CBC WITH AUTO DIFF [HEME] AM COMPREHENSIVE METABOLIC PN,CMP [CHEM] AM D-DIMER QUANTITATIVE [COAG] Q48H MAGNESIUM [CHEM] AM 06/26/21 05:11 C-REACTIVE PROTEIN [CHEM] AM CBC WITH AUTO DIFF [HEME] AM COMPREHENSIVE METABOLIC PN,CMP [CHEM] AM MAGNESIUM [CHEM] AM 06/27/21 05:11 C-REACTIVE PROTEIN [CHEM] AM CBC WITH AUTO DIFF [HEME] AM COMPREHENSIVE METABOLIC PN,CMP [CHEM] AM D-DIMER QUANTITATIVE [COAG] Q48H MAGNESIUM [CHEM] AM 06/29/21 05:11 D-DIMER QUANTITATIVE [COAG] Q48H - Assessment Assessment:: 06/24/2021 This is a 35-year-old male who is morbidly obese admitted for COVID-19 pneumonia and anasarca. Echo was obtained yesterday and shows 1. LVEF by visual e stimation of 60 to 65%. 2. Technically difficult study with suboptimal image quality. Suspect normal LV systolic function. Unable to visualize all segments for assessment of regional wall motion. Valves not well visualized. 3. The right ventricle was not well visualized. In short axis there is some septal flattening which may be consistent with RV pressure overload (Slide 45). Also abnormal septal bounce and apical four-chamber view which can be seen with elevated RV pressure. 4. There is no evidence of pericardial effusion. WBC is elevated 11.22, which is likely steroid related. Platelets are elevated 409,000. Sodium is 140. Potassium 4.8. Carbon dioxide 38. Anion gap is 7.8. BUN is 15. Creatinine 0.8. GFR greater than 60. Glucose has been between 108 and 146. Bilirubin 0.3. AST is 24, ALT 13, alkaline phosphatase 80. CRP is 6.4. Albumin is 2.5. Vitamin D obtained yesterday was 21.7 and hemoglobin A1c was 7.6. He is down 10 pounds. Blood pressures have been in the 150s systolic. He is on 4 L via nasal cannula. Discussed medications with Dr. Haddad today. We will continue his Cozaar and stop all other diuretics. We will also discontinue his diltiazem. We will start him on 40 mg twice daily diuretic dosing of Lasix and monitor his intake and output. We will place a sodium restriction on him. Procalcitonin is pending. We will continue remdesivir and dexamethasone. Length of stay will likely be 3-4 more days. - Plan Plan:: COVID-19 Acute hypoxemic respiratory failure * Prone whenever able. * CPAP when sleeping/napping * Oxygen as needed with goal saturation between 88 and 95%. * RT consult * Monitor need for high flow oxygen * Zinc supplementation * Famotidine 20 mg twice daily * Dexamethasone 6 mg for 10 days total * Remdesivir for 5 days total * Continuous pulse oximetry * Telemetry * I-S/Acapella * Airborne/contact precautions * PRN duonebs * PRN albuterol MDI * Daily labs Morbid obesity * Dietitian consult Tobacco dependence * Cessation counseling * Nicotine patch while hospitalized * Offer nicotine patches at discharge Type II diabetes mellitus * Hold home p.o. semaglutide * 4 times daily before meals and bedtime blood glucose checks * Low intensity sliding scale insulin * A1c 7.6 * Dietitian consult * Consider childbirth educator JORGE L (iron deficiency anemia) * No acute concerns * No home iron supplementation * Monitor Vitamin D deficiency * Vitamin D 21.7 * Start 5000 unit daily supplementation Anasarca * Continue home cozaar * Discontinue home hydrochlorothiazide, Lasix, amlodipine * Increase lasix dosing to 4o mg twice daily diuretic dosing Lasix IV push * Echocardiogram obtained as noted * HAJA julio * Monitor daily weights * Monitor strict intake and output * Low sodium diet Elevated D-Dimer * Unfortunately patient unable to fit in CT scanner for CTA * Monitor D-dimer every 48 * Lovenox 1 mg/kg twice daily Code status: Full Code PCP: Yelena Torrez PA-C DVT prophylaxis: Lovenox Disposition: Patient admitted to the floor for treatment and management of his COVID-19 pneumonia and acute respiratory failure. We will also work-up his edema. Length of stay likely 4 to 5 days pending progress
[2021-06-24] MEDS: Albuterol/Ipratropium 3.0-0.5 MG/3 ML Neb Soln NEB PRN ×3 (08:13→20:40)
[2021-06-24] MEDS ORDERED: Diltiazem 180 MG Cap.CD PO SCH (09:00)
[2021-06-24] MEDS: Famotidine 20 MG Tab PO SCH ×2 (09:45→20:05)
[2021-06-24] MEDS: Hydrochlorothiazide 25 MG Tab PO SCH (09:46)
[2021-06-24] MEDS: Zinc Sulfate 220 MG Cap PO SCH (09:46)
[2021-06-24] MEDS: Cholecalciferol (Vitamin D3) 5,000 UNIT Cap PO SCH (09:47)
[2021-06-24] MEDS: atorvaSTATin 40 MG Tab PO SCH (09:47)
[2021-06-24] MEDS: amLODIPine 10 MG Tab PO SCH (09:48)
[2021-06-24] MEDS: Dexamethasone 4 MG Tab PO SCH (09:48)
[2021-06-24] MEDS: Enoxaparin 150 MG/1 ML Syringe SUBCUT SCH ×2 (09:50→20:06)
[2021-06-24] MEDS: Nicotine 14 MG/24 Hr Patch TRDERM SCH (09:52)
[2021-06-24] MEDS ORDERED: Furosemide 40 MG/4 ML VIAL IVPUSH ONE (10:29)
[2021-06-24] MEDS: Insulin Lispro 100 Unit/ML 3 ML KwikPen SUBCUT SCH ×4 (11:11→22:02)
[2021-06-24] MEDS: Losartan 25 MG Tab PO SCH (11:40)
[2021-06-24] MEDS: Furosemide 40 MG/4 ML VIAL IVPUSH SCH (14:15)
[2021-06-24] MEDS: REMDESIVIR 100 MG in Sodium Chloride 0.9% 250 ML IV SCH (20:05)
[2021-06-25] MEDS: guaiFENesin 100 MG/5 ML Soln 10 ML UD Cup PO PRN ×2 (01:11→05:26)
[2021-06-25] MEDS: Furosemide 40 MG/4 ML VIAL IVPUSH SCH ×2 (05:26→13:25)
[2021-06-25] MEDS: Acetaminophen 325 MG Tab PO PRN ×2 (05:26→21:25)
[2021-06-25] MEDS: Albuterol/Ipratropium 3.0-0.5 MG/3 ML Neb Soln NEB PRN ×4 (05:47→20:38)
--- NOTE | 2021-06-25 06:48 | PCM.PN ---
- General Info Date of Service: 06/25/21 Admission Dx/Problem (Free Text): Admission Diagnosis/Problem Admission Diagnosis/Problem Hypoxia Functional Status: Reports: Pain Controlled, Tolerating Diet, Ambulating, Urinating, Incentive Spirometry. Denies: New Symptoms - Review of Systems General: Reports: Weakness (improving ). Denies: Fever, Fatigue, Malaise, Chills HEENT: Reports: No Symptoms. Denies: Headaches, Sore Throat Pulmonary: Reports: Shortness of Breath, Cough, Sputum. Denies: Pleuritic Chest Pain, Wheezing Cardiovascular: Reports: Dyspnea on Exertion, Edema. Denies: Chest Pain, Palpitations Gastrointestinal: Reports: No Symptoms. Denies: Abdominal Pain, Constipation, Diarrhea, Nausea, Vomiting Genitourinary: Reports: No Symptoms. Denies: Pain Musculoskeletal: Reports: No Symptoms Skin: Reports: No Symptoms. Denies: Cyanosis Neurological: Reports: No Symptoms. Denies: Confusion, Dizziness, Headache, Numbness, Pre-Existing Deficit, Seizure, Syncope, Tingling, Difficulty Walking, Gait Disturbance Psychiatric: Reports: No Symptoms - Patient Data Vitals - Most Recent: Last Vital Signs Temp 99.0 F 06/25/21 05:32 Pulse 75 06/25/21 05:32 Resp 18 06/25/21 05:32 BP 146/73 H 06/25/21 05:32 Pulse Ox 96 06/25/21 06:46 Weight - Most Recent: 476 lb 14.4 oz I&O - Last 24 Hours: Intake & Output 06/24/21 06/24/21 06/25/21 14:59 22:59 06:59 Intake Total 920 890 900 Output Total 2400 4000 3000 Balance -1480 -3110 -2100 Lab Results Last 24 Hours: Laboratory Results - last 24 hr 06/23/21 06/24/21 06/24/21 Range/Units Unknown 05:03 11:55 Manual Slide Review Abnormal smear POC Glucose 147 H (70-99) mg/dL Procalcitonin 0.17 H ng/mL 06/24/21 06/24/21 06/25/21 Range/Units 16:47 20:48 06:10 Manual Slide Review POC Glucose 164 H 126 H 110 H (70-99) mg/dL Procalcitonin ng/mL Can Results Last 24 Hours: Microbiology 06/24/21 02:00 Stool Occult Blood (CAN) - Final Stool / Feces Med Orders - Current: Current Medications Acetaminophen (Acetaminophen 325 Mg Tab) 650 mg PO Q4H PRN PRN Reason: Pain/Fever Last Admin: 06/25/21 05:26 Dose: 650 mg Documented by: Albuterol (Albuterol 6.7 Gm Inhaler) 0 gm INH Q2H PRN PRN Reason: SOB/Wheezing Albuterol/Ipratropium (Albuterol/Ipratropium 3.0-0.5 Mg/3 Ml Neb Soln) 3 ml NEB QIDRT PRN PRN Reason: Shortness Of Breath/wheezing Last Admin: 06/25/21 05:47 Dose: 3 ml Documented by: Cholecalciferol (Cholecalciferol (Vitamin D3) 5,000 Unit Cap) 5,000 unit PO DAILY [facility] Last Admin: 06/24/21 09:47 Dose: 5,000 unit Documented by: Dexamethasone (Dexamethasone 4 Mg Tab) 6 mg PO DAILY [facility] Stop: 07/01/21 09:01 Last Admin: 06/24/21 09:48 Dose: 6 mg Documented by: Enoxaparin Sodium (Enoxaparin 150 Mg/1 Ml Syringe) 230 mg SUBCUT Q12H [facility] Last Admin: 06/24/21 20:06 Dose: 230 mg Documented by: Famotidine (Famotidine 20 Mg Tab) 20 mg PO BID [facility] Last Admin: 06/24/21 20:05 Dose: 20 mg Documented by: Furosemide (Furosemide 40 Mg/4 Ml Vial) 40 mg IVPUSH BIDDIURETIC [facility] Last Admin: 06/25/21 05:26 Dose: 40 mg Documented by: Guaifenesin (Guaifenesin 100 Mg/5 Ml Soln 10 Ml Ud Cup) 200 mg PO Q4H PRN PRN Reason: Cough Last Admin: 06/25/21 05:26 Dose: 200 mg Documented by: Remdesivir 100 mg/ Sodium (Chloride) 250 mls @ 250 mls/hr IV Q24H [facility] Stop: 06/26/21 20:59 Last Admin: 06/24/21 20:05 Dose: 250 mls/hr Documented by: Insulin Human Lispro (Insulin Lispro 100 Unit/Ml 3 Ml Kwikpen) 0 unit SUBCUT QIDACANDBED [facility]; Protocol Last Admin: 06/24/21 22:02 Dose: Not Given Documented by: Losartan Potassium (Losartan 25 Mg Tab) 25 mg PO DAILY [facility] Last Admin: 06/24/21 11:40 Dose: 25 mg Documented by: Miscellaneous Information (Remove Patch) 0 ea TRDERM DAILY [facility] Last Admin: 06/24/21 09:52 Dose: 1 ea Documented by: Nicotine (Nicotine 14 Mg/24 Hr Patch) 14 mg TRDERM DAILY [facility] Last Admin: 06/24/21 09:52 Dose: 14 mg Documented by: Ondansetron HCl (Ondansetron 4 Mg/2 Ml Sdv) 4 mg IV Q6H PRN PRN Reason: Nausea/Vomiting Zinc Sulfate (Zinc Sulfate 220 Mg Cap) 220 mg PO DAILY [facility] Last Admin: 06/24/21 09:46 Dose: 220 mg Documented by: Discontinued Medications Amlodipine Besylate (Amlodipine 10 Mg Tab) 10 mg PO DAILY [facility] Last Admin: 06/24/21 09:48 Dose: 10 mg Documented by: Atorvastatin Calcium (Atorvastatin 40 Mg Tab) 40 mg PO DAILY [facility] Last Admin: 06/24/21 09:47 Dose: 40 mg Documented by: Dexamethasone (Dexamethasone 4 Mg/Ml 5 Ml Mdv) 6 mg IV ONETIME ONE Stop: 06/22/21 20:25 Last Admin: 06/22/21 21:09 Dose: 6 mg Documented by: Diltiazem HCl (Diltiazem 180 Mg Cap.Cd) 180 mg PO DAILY [facility] Last Admin: 06/24/21 09:47 Dose: 180 mg Documented by: Enoxaparin Sodium (Enoxaparin 150 Mg/1 Ml Syringe) 230 mg 1 mg/kg (230 mg) SUBCUT DAILY [facility] Last Admin: 06/23/21 08:23 Dose: 230 mg Documented by: Furosemide (Furosemide 40 Mg/4 Ml Vial) 40 mg IVPUSH NOW ONE Stop: 06/22/21 20:25 Last Admin: 06/22/21 21:07 Dose: 40 mg Documented by: Furosemide (Furosemide 40 Mg Tab) 40 mg PO DAILY [facility] Last Admin: 06/23/21 09:44 Dose: 40 mg Documented by: Furosemide (Furosemide 20 Mg/2 Ml Vial) 20 mg IVPUSH BIDDIURETIC [facility] Last Admin: 06/24/21 05:56 Dose: 20 mg Documented by: Furosemide (Furosemide 40 Mg/4 Ml Vial) 20 mg IVPUSH NOW ONE Stop: 06/24/21 10:30 Last Admin: 06/24/21 11:39 Dose: 20 mg Documented by: Hydrochlorothiazide (Hydrochlorothiazide 25 Mg Tab) 25 mg PO DAILY [facility] Last Admin: 06/24/21 09:46 Dose: 25 mg Documented by: Remdesivir 200 mg/ Sodium (Chloride) 250 mls @ 250 mls/hr IV ONETIME ONE Stop: 06/22/21 20:26 Last Admin: 06/22/21 21:09 Dose: 250 mls/hr Documented by: Sodium Chloride (Normal Saline) 100 mls @ 70 mls/min IV ASDIRECTED [facility] Ibuprofen (Ibuprofen 600 Mg Tab) 600 mg PO Q6H PRN PRN Reason: Pain/Fever Iopamidol (Iopamidol 755 Mg/Ml 100 Ml Bottle) 100 ml IVPUSH ONETIME ONE Stop: 06/22/21 21:20 Last Admin: 06/22/21 21:43 Dose: Not Given Documented by: Losartan Potassium (Losartan 100 Mg Tab) 100 mg PO DAILY [facility] Last Admin: 06/23/21 09:41 Dose: 100 mg Documented by: Semaglutide [ Rybelsus] 7 Mg Tablet 0 each PO DAILY [facility] Sodium Chloride (Sodium Chloride 0.9% 10 Ml Sdv) 10 ml FLUSH ONETIME ONE Stop: 06/22/21 21:20 Last Admin: 06/22/21 21:43 Dose: Not Given Documented by: - Exam Quality Assessment: Supplemental Oxygen (5L), DVT Prophylaxis. No: Urine Catheter General: Alert, Oriented, Cooperative, No Acute Distress HEENT: Pupils Equal, Pupils Reactive, Mucous Membr. Moist/[place] Neck: Supple, Trachea Midline Lungs: Normal Respiratory Effort, Decreased Breath Sounds, Crackles. No: Rhonchi, Wheezing Cardiovascular: Regular Rate, Regular Rhythm, Other (Distant heart tones ) GI/Abdominal Exam: Normal Bowel Sounds, Soft, Non-Tender, No Distention (Male) Exam: Deferred Back Exam: Normal Inspection, Full Range of Motion Extremities: Normal Range of Motion, Non-Tender, Normal Capillary Refill, Pedal Edema (4+ but improving ), Other (Bilateral lower extremity discoloration consistent with PVD. Lower extremity scaling) Skin: Warm, Dry, Intact Neurological: No New Focal Deficit Psy/Mental Status: Alert, Normal Affect, Normal Mood - Patient Data Lab Results Last 24 hrs: Laboratory Results - last 24 hr 06/23/21 06/24/21 06/24/21 Range/Units Unknown 05:03 11:55 Manual Slide Review Abnormal smear POC Glucose 147 H (70-99) mg/dL Procalcitonin 0.17 H ng/mL 06/24/21 06/24/21 06/25/21 Range/Units 16:47 20:48 06:10 Manual Slide Review POC Glucose 164 H 126 H 110 H (70-99) mg/dL Procalcitonin ng/mL Result Diagrams: 06/25/21 06:48 06/25/21 06:48 Can Results Last 24 hrs: Microbiology 06/24/21 02:00 Stool Occult Blood (CAN) - Final Stool / Feces Sepsis Event Note - Evaluation Sepsis Screening Result: No Definite Risk - Focused Exam Vital Signs: Vital Signs Temp Pulse Resp BP Pulse Ox Pulse Ox Pulse Ox 06/25/21 06:46 96 06/25/21 06:20 93 L 06/25/21 05:47 88 L 06/25/21 05:32 99.0 F 75 18 146/73 H 94 L 06/24/21 23:52 97.5 F 87 20 162/84 H 95 06/24/21 20:40 91 L 06/24/21 19:57 97.3 F 78 18 151/82 H 88 L - Problem List & Annotations (1) Morbid obesity SNOMED Code(s): 886458352 Code(s): E66.01 - MORBID (SEVERE) OBESITY DUE TO EXCESS CALORIES Status: Chronic Priority: Medium Current Visit: Yes (2) Tobacco dependence SNOMED Code(s): 98542060 Code(s): F17.200 - NICOTINE DEPENDENCE, UNSPECIFIED, UNCOMPLICATED Status: Chronic Priority: Medium Current Visit: Yes (3) Type II diabetes mellitus SNOMED Code(s): 83754449 Code(s): E11.9 - TYPE 2 DIABETES MELLITUS WITHOUT COMPLICATIONS Status: Chronic Priority: Medium Current Visit: No Qualifiers: 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 Diabetes mellitus complication status: with other specified complication Qualified Code(s): E11.69 - Type 2 diabetes mellitus with other specified complication (4) JORGE L (iron deficiency anemia) SNOMED Code(s): 99356033 Code(s): D50.9 - IRON DEFICIENCY ANEMIA, UNSPECIFIED Status: Chronic Priority: Low Current Visit: No Qualifiers: Iron deficiency anemia type: unspecified iron deficiency Qualified Code(s): D50.9 - Iron deficiency anemia, unspecified (5) Acute hypoxemic respiratory failure SNOMED Code(s): 218773765 Code(s): J96.01 - ACUTE RESPIRATORY FAILURE WITH HYPOXIA Status: Acute P riority: High Current Visit: Yes (6) Anasarca SNOMED Code(s): 852156516, 872608041 Code(s): R60.1 - GENERALIZED EDEMA Status: Acute Priority: High Current Visit: Yes (7) COVID-19 SNOMED Code(s): 676662635 Code(s): U07.1 - COVID-19 Status: Acute Priority: High Current Visit: Yes (8) Vitamin D deficiency SNOMED Code(s): 42090758 Code(s): E55.9 - VITAMIN D DEFICIENCY, UNSPECIFIED Status: Acute Priority: Medium Current Visit: Yes (9) Elevated d-dimer SNOMED Code(s): 440295047 Code(s): R79.89 - OTHER SPECIFIED ABNORMAL FINDINGS OF BLOOD CHEMISTRY Status: Acute Current Visit: Yes - Problem List Review Problem List Initiated/Reviewed/Updated: Yes - My Orders Last 24 Hours: My Active Orders 06/24/21 09:00 Remove Patch 0 ea TRDERM DAILY 06/24/21 10:30 Losartan [Cozaar] 25 mg PO DAILY 06/24/21 10:33 Intake and Output Strict [RC] Q2HR 06/24/21 Lunch 2 Gram Sodium Diet [DIET] 06/24/21 14:00 Furosemide [Lasix] 40 mg IVPUSH BIDDIURETIC 06/25/21 05:11 C-REACTIVE PROTEIN [CHEM] AM CBC WITH AUTO DIFF [HEME] AM COMPREHENSIVE METABOLIC PN,CMP [CHEM] AM D-DIMER QUANTITATIVE [COAG] Q48H MAGNESIUM [CHEM] AM 06/26/21 05:11 C-REACTIVE PROTEIN [CHEM] AM CBC WITH AUTO DIFF [HEME] AM COMPREHENSIVE METABOLIC PN,CMP [CHEM] AM MAGNESIUM [CHEM] AM 06/27/21 05:11 C-REACTIVE PROTEIN [CHEM] AM CBC WITH AUTO DIFF [HEME] AM COMPREHENSIVE METABOLIC PN,CMP [CHEM] AM D-DIMER QUANTITATIVE [COAG] Q48H MAGNESIUM [CHEM] AM 06/29/21 05:11 D-DIMER QUANTITATIVE [COAG] Q48H - Assessment Assessment:: 06/24/2021 This is a 35-year-old male who is morbidly obese admitted for COVID-19 pneumonia and anasarca. Echo was obtained yesterday and shows 1. LVEF by visual estimation of 60 to 65%. 2. Technically difficult study with suboptimal image quality. Suspect normal LV systolic function. Unable to visualize all segments for assessment of regional wall motion. Valves not well visualized. 3. The right ventricle was not well visualized. In short axis there is some septal flattening which may be consistent with RV pressure overload (Slide 45). Also abnormal septal bounce and apical four-chamber view which can be seen with elevated RV pressure. 4. There is no evidence of pericardial effusion. WBC is elevated 11.22, which is likely steroid related. Platelets are elevated 409,000. Sodium is 140. Potassium 4.8. Carbon dioxide 38. Anion gap is 7.8. BUN is 15. Creatinine 0.8. GFR greater than 60. Glucose has been between 108 and 146. Bilirubin 0.3. AST is 24, ALT 13, alkaline phosphatase 80. CRP is 6.4. Albumin is 2.5. Vitamin D obtained yesterday was 21.7 and hemoglobin A1c was 7.6. He is down 10 pounds. Blood pressures have been in the 150s systolic. He is on 4 L via nasal cannula. Discussed medications with Dr. Haddad today. We will continue his Cozaar and stop all other diuretics. We will also discontinue his diltiazem. We will start him on 40 mg twice daily diuretic dosing of Lasix and monitor his intake and output. We will place a sodium restriction on him. Procalcitonin is pending. We will continue remdesivir and dexamethasone. Length of stay will likely be 3-4 more days. 06/24/2021 35-year-old male admitted to the floor for treatment of his COVID-19 pneumonia a nd anasarca. He is down over 20 pounds today and reports he feels much better. He is on 5 L of oxygen currently but states his respiratory status has improved to. He will continue on remdesivir and dexamethasone. He is receiving 40 mg twice daily Lasix IV push and we will continue this until his edema has improved. Labs today show a WBC of 10.13, likely steroid related. Hemoglobin is 10.6. Platelet 400,000. Neutrophils are elevated 73.3. D-dimer is 1.52. Sodium 142. Potassium 4.1. Chloride 99. Carbon dioxide 39. Anion gap is 8.1. BUN is 18. Creatinine 0.7. GFR is greater than 60. Glucose has been 1 64- 95. Magnesium is 2.0. Bilirubin 0.5. AST is 25, ALT 30, alkaline phosphatase 74. CRP is down to 4.0. Albumin is 2.7. We will continue current treatment plan. Unknown length of stay due to severity of Covid symptoms and need for continued diuresis. - Plan Plan:: COVID-19 Acute hypoxemic respiratory failure * Prone whenever able. * CPAP when sleeping/napping * Oxygen as needed with goal saturation between 88 and 95%. * RT consult * Monitor need for high flow oxygen * Zinc supplementation * Famotidine 20 mg twice daily * Dexamethasone 6 mg for 10 days total * Remdesivir for 5 days total * Continuous pulse oximetry * Telemetry * I-S/Acapella * Airborne/contact precautions * PRN duonebs * PRN albuterol MDI * Daily labs Morbid obesity * Dietitian consult Tobacco dependence * Cessation counseling * Nicotine patch while hospitalized * Offer nicotine patches at discharge Type II diabetes mellitus * Hold home p.o. semaglutide * 4 times daily before meals and bedtime blood glucose checks * Low intensity sliding scale insulin * A1c 7.6 * Dietitian consult * Consider healthcare educator JORGE L (iron deficiency anemia) * No acute concerns * No home iron supplementation * Monitor Vitamin D deficiency * Vitamin D 21.7 * Start 5000 unit daily supplementation Anasarca * Continue home cozaar * Discontinue home hydrochlorothiazide, Lasix, amlodipine * Increase lasix dosing to 40 mg twice daily diuretic dosing Lasix IV push * Echocardiogram obtained as noted * HAJA julio * Monitor daily weights * Monitor strict intake and output * Low sodium diet Elevated D-Dimer * Unfortunately patient unable to fit in CT scanner for CTA * Monitor D-dimer every 48 * Lovenox 1 mg/kg twice daily Code status: Full Code PCP: Yelena Torrez PA-C DVT prophylaxis: Lovenox Disposition: Patient admitted to the floor for treatment and management of his COVID-19 pneumonia and acute respiratory failure. We will also work-up his edema. Length of stay likely 4 to 5 days pending progress
[2021-06-25] MEDS: Insulin Lispro 100 Unit/ML 3 ML KwikPen SUBCUT SCH ×4 (07:00→22:18)
[2021-06-25] MEDS: Cholecalciferol (Vitamin D3) 5,000 UNIT Cap PO SCH (10:04)
[2021-06-25] MEDS: Zinc Sulfate 220 MG Cap PO SCH (10:04)
[2021-06-25] MEDS: Dexamethasone 4 MG Tab PO SCH (10:04)
[2021-06-25] MEDS: Famotidine 20 MG Tab PO SCH ×2 (10:04→20:11)
[2021-06-25] MEDS: Losartan 25 MG Tab PO SCH (10:05)
[2021-06-25] MEDS: Nicotine 14 MG/24 Hr Patch TRDERM SCH (10:06)
[2021-06-25] MEDS: Enoxaparin 150 MG/1 ML Syringe SUBCUT SCH ×2 (10:07→21:06)
[2021-06-25] MEDS: REMDESIVIR 100 MG in Sodium Chloride 0.9% 250 ML IV SCH (20:12)
[2021-06-26] MEDS ORDERED: hydrALAZINE 20 MG/ML SDV IVPUSH PRN (00:54)
[2021-06-26] MEDS: Acetaminophen 325 MG Tab PO PRN ×2 (02:55→09:00)
[2021-06-26] MEDS: guaiFENesin 100 MG/5 ML Soln 10 ML UD Cup PO PRN ×2 (03:01→21:56)
[2021-06-26] MEDS: Furosemide 40 MG/4 ML VIAL IVPUSH SCH ×2 (06:40→13:39)
[2021-06-26] MEDS: Insulin Lispro 100 Unit/ML 3 ML KwikPen SUBCUT SCH ×4 (06:56→20:43)
--- NOTE | 2021-06-26 07:43 | PCM.PN ---
- General Info Date of Service: 06/26/21 Admission Dx/Problem (Free Text): Admission Diagnosis/Problem Admission Diagnosis/Problem acute respiratory failure secondary to COVID-19 pneumonia Subjective Update: The patient is a 35-year-old gentleman who was admitted to the emergency department on June 23, 2021 due to COVID-19 pneumonia and hypoxia. The patient has been tolerating his diet. He has denied any new pain. Patient says that he is feeling much better. No other complaints. Functional Status: Reports: Pain Controlled, Tolerating Diet. Denies: New Symptoms - Review of Systems General: Reports: No Symptoms HEENT: Reports: No Symptoms Pulmonary: Reports: Shortness of Breath, Cough Cardiovascular: Reports: No Symptoms Gastrointestinal: Reports: No Symptoms Genitourinary: Reports: No Symptoms Musculoskeletal: Reports: No Symptoms Skin: Reports: No Symptoms Neurological: Reports: No Symptoms Psychiatric: Reports: No Symptoms - Patient Data Vitals - Most Recent: Last Vital Signs Temp 36.0 C L 06/26/21 04:16 Pulse 83 06/26/21 04:16 Resp 24 H 06/26/21 04:16 BP 156/70 H 06/26/21 04:16 Pulse Ox 94 L 06/26/21 04:16 Weight - Most Recent: 207.915 kg I&O - Last 24 Hours: Intake & Output 06/25/21 06/26/21 06/26/21 22:59 06:59 14:59 Intake Total 800 650 Output Total 3000 800 Balance -2200 -150 Lab Results Last 24 Hours: Laboratory Results - last 24 hr 06/25/21 06/25/21 06/25/21 Range/Units 06:48 11:23 16:31 Sodium 142 (136-145) mEq/L Potassium 4.1 (3.5-5.1) mEq/L Chloride 99 (98-107) mEq/L Carbon Dioxide 39 H (21-32) mEq/L Anion Gap 8.1 (5-15) BUN 18 (7-18) mg/dL Creatinine 0.7 (0.7-1.3) mg/dL Est Cr Clr Drug Dosing 177.31 mL/min Estimated GFR (MDRD) > 60 (>60) mL/min BUN/Creatinine Ratio 25.7 H (14-18) Glucose 95 (70-99) mg/dL POC Glucose 130 H 123 H (70-99) mg/dL Calcium 9.0 (8.5-10.1) mg/dL Magnesium 2.0 (1.8-2.4) mg/dL Total Bilirubin 0.5 (0.2-1.0) mg/dL AST 25 (15-37) U/L ALT 30 (16-63) U/L Alkaline Phosphatase 74 (46-116) U/L C-Reactive Protein 4.0 H* (<1.0) mg/dL Total Protein 7.2 (6.4-8.2) g/dl Albumin 2.7 L (3.4-5.0) g/dl Globulin 4.5 gm/dL Albumin/Globulin Ratio 0.6 L (1-2) 06/25/21 06/26/21 Range/Units 22:06 06:49 Sodium (136-145) mEq/L Potassium (3.5-5.1) mEq/L Chloride (98-107) mEq/L Carbon Dioxide (21-32) mEq/L Anion Gap (5-15) BUN (7-18) mg/dL Creatinine (0.7-1.3) mg/dL Est Cr Clr Drug Dosing mL/min Estimated GFR (MDRD) (>60) mL/min BUN/Creatinine Ratio (14-18) Glucose (70-99) mg/dL POC Glucose 199 H 101 H (70-99) mg/dL Calcium (8.5-10.1) mg/dL Magnesium (1.8-2.4) mg/dL Total Bilirubin (0.2-1.0) mg/dL AST (15-37) U/L ALT (16-63) U/L Alkaline Phosphatase (46-116) U/L C-Reactive Protein (<1.0) mg/dL Total Protein (6.4-8.2) g/dl Albumin (3.4-5.0) g/dl Globulin gm/dL Albumin/Globulin Ratio (1-2) Med Orders - Current: Current Medications Acetaminophen (Acetaminophen 325 Mg Tab) 650 mg PO Q4H PRN PRN Reason: Pain/Fever Last Admin: 06/26/21 02:55 Dose: 650 mg Documented by: Albuterol (Albuterol 6.7 Gm Inhaler) 0 gm INH Q2H PRN PRN Reason: SOB/Wheezing Albuterol/Ipratropium (Albuterol/Ipratropium 3.0-0.5 Mg/3 Ml Neb Soln) 3 ml NEB QIDRT PRN PRN Reason: Shortness Of Breath/wheezing Last Admin: 06/25/21 20:38 Dose: 3 ml Documented by: Cholecalciferol (Cholecalciferol (Vitamin D3) 5,000 Unit Cap) 5,000 unit PO DAILY [facility] Last Admin: 06/25/21 10:04 Dose: 5,000 unit Documented by: Dexamethasone (Dexamethasone 4 Mg Tab) 6 mg PO DAILY [facility] Stop: 07/01/21 09:01 Last Admin: 06/25/21 10:04 Dose: 6 mg Documented by: Enoxaparin Sodium (Enoxaparin 150 Mg/1 Ml Syringe) 230 mg SUBCUT Q12H [facility] Last Admin: 06/25/21 21:06 Dose: 230 mg Documented by: Famotidine (Famotidine 20 Mg Tab) 20 mg PO BID [facility] Last Admin: 06/25/21 20:11 Dose: 20 mg Documented by: Furosemide (Furosemide 40 Mg/4 Ml Vial) 40 mg IVPUSH BIDDIURETIC [facility] Last Admin: 06/26/21 06:40 Dose: 40 mg Documented by: Guaifenesin (Guaifenesin 100 Mg/5 Ml Soln 10 Ml Ud Cup) 200 mg PO Q4H PRN PRN Reason: Cough Last Admin: 06/26/21 03:01 Dose: 200 mg Documented by: Hydralazine HCl (Hydralazine 20 Mg/Ml Sdv) 10 mg IVPUSH Q4H PRN PRN Reason: SBP >180 or DBP >100 Remdesivir 100 mg/ Sodium (Chloride) 250 mls @ 250 mls/hr IV Q24H [facility] Stop: 06/26/21 20:59 Last Admin: 06/25/21 20:12 Dose: 250 mls/hr Documented by: Insulin Human Lispro (Insulin Lispro 100 Unit/Ml 3 Ml Kwikpen) 0 unit SUBCUT QIDACANDBED [facility]; Protocol Last Admin: 06/26/21 06:56 Dose: Not Given Documented by: Losartan Potassium (Losartan 25 Mg Tab) 25 mg PO DAILY [facility] Last Admin: 06/25/21 10:05 Dose: 25 mg Documented by: Miscellaneous Information (Remove Patch) 0 ea TRDERM DAILY [facility] Last Admin: 06/25/21 10:08 Dose: 1 ea Documented by: Nicotine (Nicotine 14 Mg/24 Hr Patch) 14 mg TRDERM DAILY [facility] Last Admin: 06/25/21 10:06 Dose: 14 mg Documented by: Ondansetron HCl (Ondansetron 4 Mg/2 Ml Sdv) 4 mg IV Q6H PRN PRN Reason: Nausea/Vomiting Zinc Sulfate (Zinc Sulfate 220 Mg Cap) 220 mg PO DAILY [facility] Last Admin: 06/25/21 10:04 Dose: 220 mg Documented by: Discontinued Medications Amlodipine Besylate (Amlodipine 10 Mg Tab) 10 mg PO DAILY [facility] Last Admin: 06/24/21 09:48 Dose: 10 mg Documented by: Atorvastatin Calcium (Atorvastatin 40 Mg Tab) 40 mg PO DAILY [facility] Last Admin: 06/24/21 09:47 Dose: 40 mg Documented by: Dexamethasone (Dexamethasone 4 Mg/Ml 5 Ml Mdv) 6 mg IV ONETIME ONE Stop: 06/22/21 20:25 Last Admin: 06/22/21 21:09 Dose: 6 mg Documented by: Diltiazem HCl (Diltiazem 180 Mg Cap.Cd) 180 mg PO DAILY [facility] Last Admin: 06/24/21 09:47 Dose: 180 mg Documented by: Enoxaparin Sodium (Enoxaparin 150 Mg/1 Ml Syringe) 230 mg 1 mg/kg (230 mg) SUBCUT DAILY [facility] Last Admin: 06/23/21 08:23 Dose: 230 mg Documented by: Furosemide (Furosemide 40 Mg/4 Ml Vial) 40 mg IVPUSH NOW ONE Stop: 06/22/21 20:25 Last Admin: 06/22/21 21:07 Dose: 40 mg Documented by: Furosemide (Furosemide 40 Mg Tab) 40 mg PO DAILY [facility] Last Admin: 06/23/21 09:44 Dose: 40 mg Documented by: Furosemide (Furosemide 20 Mg/2 Ml Vial) 20 mg IVPUSH BIDDIURETIC [facility] Last Admin: 06/24/21 05:56 Dose: 20 mg Documented by: Furosemide (Furosemide 40 Mg/4 Ml Vial) 20 mg IVPUSH NOW ONE Stop: 06/24/21 10:30 Last Admin: 06/24/21 11:39 Dose: 20 mg Documented by: Hydrochlorothiazide (Hydrochlorothiazide 25 Mg Tab) 25 mg PO DAILY [facility] Last Admin: 06/24/21 09:46 Dose: 25 mg Documented by: Remdesivir 200 mg/ Sodium (Chloride) 250 mls @ 250 mls/hr IV ONETIME ONE Stop: 06/22/21 20:26 Last Admin: 06/22/21 21:09 Dose: 250 mls/hr Documented by: Sodium Chloride (Normal Saline) 100 mls @ 70 mls/min IV ASDIRECTED [facility] Ibuprofen (Ibuprofen 600 Mg Tab) 600 mg PO Q6H PRN PRN Reason: Pain/Fever Iopamidol (Iopamidol 755 Mg/Ml 100 Ml Bottle) 100 ml IVPUSH ONETIME ONE Stop: 06/22/21 21:20 Last Admin: 06/22/21 21:43 Dose: Not Given Documented by: Losartan Potassium (Losartan 100 Mg Tab) 100 mg PO DAILY [facility] Last Admin: 06/23/21 09:41 Dose: 100 mg Documented by: Semaglutide [ Rybelsus] 7 Mg Tablet 0 each PO DAILY [facility] Sodium Chloride (Sodium Chloride 0.9% 10 Ml Sdv) 10 ml FLUSH ONETIME ONE Stop: 06/22/21 21:20 Last Admin: 06/22/21 21:43 Dose: Not Given Documented by: - Exam Quality Assessment: Supplemental Oxygen, DVT Prophylaxis General: Alert, Oriented, Cooperative, No Acute Distress HEENT: Pupils Equal, Pupils Reactive, EOMI. No: Mucous Membr. Moist/[place] (Dry) Neck: Supple, Trachea Midline Lungs: Decreased Breath Sounds, Crackles Cardiovascular: Regular Rate, Regular Rhythm GI/Abdominal Exam: Normal Bowel Sounds, Soft, No Distention, Other (Obese) (Male) Exam: Deferred Back Exam: Normal Inspection, Full Range of Motion Extremities: Normal Inspection, Normal Range of Motion, Pedal Edema Skin: Warm, Dry, Intact, Rash (Chronic venous stasis changes bilateral lower extremities) Neurological: No New Focal Deficit, Normal Gait, Normal Speech Psy/Mental Status: Alert, Normal Affect - Patient Data Lab Results Last 24 hrs: Laboratory Results - last 24 hr 06/25/21 06/25/21 06/25/21 Range/Units 06:48 11:23 16:31 Sodium 142 (136-145) mEq/L Potassium 4.1 (3.5-5.1) mEq/L Chloride 99 (98-107) mEq/L Carbon Dioxide 39 H (21-32) mEq/L Anion Gap 8.1 (5-15) BUN 18 (7-18) mg/dL Creatinine 0.7 (0.7-1.3) mg/dL Est Cr Clr Drug Dosing 177.31 mL/min Estimated GFR (MDRD) > 60 (>60) mL/min BUN/Creatinine Ratio 25.7 H (14-18) Glucose 95 (70-99) mg/dL POC Glucose 130 H 123 H (70-99) mg/dL Calcium 9.0 (8.5-10.1) mg/dL Magnesium 2.0 (1.8-2.4) mg/dL Total Bilirubin 0.5 (0.2-1.0) mg/dL AST 25 (15-37) U/L ALT 30 (16-63) U/L Alkaline Phosphatase 74 (46-116) U/L C-Reactive Protein 4.0 H* (<1.0) mg/dL Total Protein 7.2 (6.4-8.2) g/dl Albumin 2.7 L (3.4-5.0) g/dl Globulin 4.5 gm/dL Albumin/Globulin Ratio 0.6 L (1-2) 06/25/21 06/26/21 Range/Units 22:06 06:49 Sodium (136-145) mEq/L Potassium (3.5-5.1) mEq/L Chloride (98-107) mEq/L Carbon Dioxide (21-32) mEq/L Anion Gap (5-15) BUN (7-18) mg/dL Creatinine (0.7-1.3) mg/dL Est Cr Clr Drug Dosing mL/min Estimated GFR (MDRD) (>60) mL/min BUN/Creatinine Ratio (14-18) Glucose (70-99) mg/dL POC Glucose 199 H 101 H (70-99) mg/dL Calcium (8.5-10.1) mg/dL Magnesium (1.8-2.4) mg/dL Total Bilirubin (0.2-1.0) mg/dL AST (15-37) U/L ALT (16-63) U/L Alkaline Phosphatase (46-116) U/L C-Reactive Protein (<1.0) mg/dL Total Protein (6.4-8.2) g/dl Albumin (3.4-5.0) g/dl Globulin gm/dL Albumin/Globulin Ratio (1-2) Result Diagrams: 06/26/21 07:34 06/26/21 07:34 Sepsis Event Note - Evaluation Sepsis Screening Result: No Definite Risk - Focused Exam Vital Signs: Vital Signs Temp Temp Pulse Pulse Resp BP BP 06/26/21 04:16 36.0 C L 83 24 H 156/70 H 06/26/21 03:00 160/78 H 06/26/21 02:00 166/68 H 06/26/21 00:39 36.0 C L 81 24 H 178/98 H 06/25/21 22:08 81 24 H 146/98 H 06/25/21 22:00 37.0 C 06/25/21 21:30 175/84 H 06/25/21 21:09 37.2 C 78 06/25/21 20:38 Pulse Ox Pulse Ox Pulse Ox 06/26/21 04:16 94 L 06/26/21 03:00 06/26/21 02:00 06/26/21 00:39 94 L 06/25/21 22:08 97 92 L 06/25/21 22:00 06/25/21 21:30 06/25/21 21:09 93 L 06/25/21 20:38 96 - Problem List & Annotations (1) Acute hypoxemic respiratory failure SNOMED Code(s): 452011916 Code(s): J96.01 - ACUTE RESPIRATORY FAILURE WITH HYPOXIA Status: Acute Priority: High Current Visit: Yes (2) COVID-19 SNOMED Code(s): 857222024 Code(s): U07.1 - COVID-19 Status: Acute Priority: High Current Visit: Yes (3) Morbid obesity SNOMED Code(s): 736117810 Code(s): E66.01 - MORBID (SEVERE) OBESITY DUE TO EXCESS CALORIES Status: Chronic Priority: Medium Current Visit: Yes (4) Hypoventilation associated with obesity syndrome SNOMED Code(s): 43982590, 457575942 Code(s): E66.2 - MORBID (SEVERE) OBESITY WITH ALVEOLAR HYPOVENTILATION S tatus: Chronic Priority: High Current Visit: Yes (5) Hypertensive heart disease SNOMED Code(s): 23599196 Code(s): I11.9 - HYPERTENSIVE HEART DISEASE WITHOUT HEART FAILURE Status: Chronic Priority: Medium Current Visit: Yes Qualifiers: Heart failure presence: with heart failure Heart failure type: right-sided Heart failure chronicity: chronic Qualified Code(s): I11.0 - Hypertensive heart disease with heart failure; I50.812 - Chronic right heart failure (6) Type II diabetes mellitus SNOMED Code(s): 83048194 Code(s): E11.9 - TYPE 2 DIABETES MELLITUS WITHOUT COMPLICATIONS Status: Chronic Priority: Medium Current Visit: Yes Qualifiers: Diabetes mellitus exterminator helper termite insulin use: without exterminator helper termite use Diabetes mellitus complication status: with other specified complication Qualified Code(s): E11.69 - Type 2 diabetes mellitus with other specified complication - Problem List Review Problem List Initiated/Reviewed/Updated: Yes - Assessment Assessment:: 06/24/2021 This is a 35-year-old male who is morbidly obese admitted for COVID-19 pneumonia and anasarca. Echo was obtained yesterday and shows 1. LVEF by visual estimation of 60 to 65%. 2. Technically difficult study with suboptimal image quality. Suspect normal LV systolic function. Unable to visualize all segments for assessment of regional wall motion. Valves not well visualized. 3. The right ventricle was not well visualized. In short axis there is some septal flattening which may be consistent with RV pressure overload (Slide 45). Also abnormal septal bounce and apical four-chamber view which can be seen with elevated RV pressure. 4. There is no evidence of pericardial effusion. WBC is elevated 11.22, which is likely steroid related. Platelets are elevated 409,000. Sodium is 140. Potassium 4.8. Carbon dioxide 38. Anion gap is 7.8. BUN is 15. Creatinine 0.8. GFR greater than 60. Glucose has been between 108 and 146. Bilirubin 0.3. AST is 24, ALT 13, alkaline phosphatase 80. CRP is 6.4. Albumin is 2.5. Vitamin D obtained yesterday was 21.7 and hemoglobin A1c was 7.6. He is down 10 pounds. Blood pressures have been in the 150s systolic. He is on 4 L via nasal cannula. Discussed medications with Dr. Haddad today. We will continue his Cozaar and stop all other diuretics. We will also discontinue his diltiazem. We will start him on 40 mg twice daily diuretic dosing of Lasix and monitor his intake and output. We will place a sodium restriction on him. Procalcitonin is pending. We will continue remdesivir and dexamethasone. Length of stay will likely be 3-4 more days. 06/24/2021 35-year-old male admitted to the floor for treatment of his COVID-19 pneumonia and anasarca. He is down over 20 pounds today and reports he feels much better. He is on 5 L of oxygen currently but states his respiratory status has improved to. He will continue on remdesivir and dexamethasone. He is receiving 40 mg twice daily Lasix IV push and we will continue this until his edema has improved. Labs today show a WBC of 10.13, likely steroid related. Hemoglobin is 10.6. Platelet 400,000. Neutrophils are elevated 73.3. D-dimer is 1.52. Sodium 142. Potassium 4.1. Chloride 99. Carbon dioxide 39. Anion gap is 8.1. BUN is 18. Creatinine 0.7. GFR is greater than 60. Glucose has been 1 64-95. Magnesium is 2.0. Bilirubin 0.5. AST is 25, ALT 30, alkaline phosphatase 74. CRP is down to 4.0. Albumin is 2.7. We will continue current treatment plan. Unknown length of stay due to severity of Covid symptoms and need for continued diuresis. - Plan Plan:: COVID-19 Acute hypoxemic respiratory failure * Prone whenever able. * CPAP when sleeping/napping * Oxygen as needed with goal saturation between 88 and 95%. * RT consult * Monitor need for high flow oxygen * Zinc supplementation * Famotidine 20 mg twice daily * Dexamethasone 6 mg for 10 days total * Remdesivir for 5 days total * Continuous pulse oximetry * Telemetry * I-S/Acapella * Airborne/contact precautions * PRN duonebs * PRN albuterol MDI * Daily labs Morbid obesity * Dietitian consult Tobacco dependence * Cessation counseling * Nicotine patch while hospitalized * Offer nicotine patches at discharge Type II diabetes mellitus * Hold home p.o. semaglutide * 4 times daily before meals and bedtime blood glucose checks * Low intensity sliding scale insulin * A1c 7.6 * Dietitian consult * Consider certified adaptive physical educator JORGE L (iron deficiency anemia) * No acute concerns * No home iron supplementation * Monitor Vitamin D deficiency * Vitamin D 21.7 * Start 5000 unit daily supplementation Anasarca * Continue home cozaar * Discontinue home hydrochlorothiazide, Lasix, amlodipine * Increase lasix dosing to 40 mg twice daily diuretic dosing Lasix IV push * Echocardiogram obtained as noted * HAJA julio * Monitor daily weights * Monitor strict intake and output * Low sodium diet Elevated D-Dimer * Unfortunately patient unable to fit in CT scanner for CTA * Monitor D-dimer every 48 * Lovenox 1 mg/kg twice daily Code status: Full Code PCP: Yelena Torrez PA-C DVT prophylaxis: Lovenox Disposition: Patient admitted to the floor for treatment and management of his COVID-19 pneumonia and acute respiratory failure. We will also work-up his edema. Length of stay likely 4 to 5 days pending progress 06/26/2021 The patient is a 35-year-old gentleman who was admitted secondary to COVID-19 pneumonia as well as hypoxia. Review of previous laboratory studies have indicated that the patient is a chronic CO2 retainer likely secondary to obesity associated hypoventilation. The patient is on remdesivir scheduled to complete on June 27, 2021 and he will likely be appropriate for discharge at that time. Patient's oxygen saturations will be kept around 92%. The patient will need to have follow-up with his primary care physician for his hypoventilation syndrome. Repeat laboratory studies have been ordered. He currently is also type II diabetic and the patient's Accu-Cheks will continue as well as his carb constant diet. The patient had elevations of his D-dimer and is currently on Lovenox 1 mg/kg twice daily as treatment dose as he has been unable to have a CT scan due to his weight.
[2021-06-26] MEDS: Albuterol/Ipratropium 3.0-0.5 MG/3 ML Neb Soln NEB PRN ×3 (08:52→19:43)
[2021-06-26] MEDS: Famotidine 20 MG Tab PO SCH ×2 (08:56→20:20)
[2021-06-26] MEDS: Dexamethasone 4 MG Tab PO SCH (08:57)
[2021-06-26] MEDS: Zinc Sulfate 220 MG Cap PO SCH (08:57)
[2021-06-26] MEDS: Losartan 25 MG Tab PO SCH (08:57)
[2021-06-26] MEDS: Cholecalciferol (Vitamin D3) 5,000 UNIT Cap PO SCH (08:57)
[2021-06-26] MEDS: Enoxaparin 150 MG/1 ML Syringe SUBCUT SCH ×2 (08:58→20:34)
[2021-06-26] MEDS: Nicotine 14 MG/24 Hr Patch TRDERM SCH (08:59)
[2021-06-26] MEDS: cloNIDine 0.1 MG Tab PO SCH ×2 (13:38→20:20)
[2021-06-26] MEDS ORDERED: Sodium Chloride 0.9% 250 ML ONE (20:03)
[2021-06-26] MEDS: REMDESIVIR 100 MG in Sodium Chloride 0.9% 250 ML IV SCH (20:27)
[2021-06-26] MEDS: Calcium Carbonate 600 MG Tab PO SCH (22:46)
[2021-06-26] MEDS: Multivitamin Tab PO SCH (22:46)
[2021-06-26] MEDS: Magnesium Oxide 400 MG Tab PO SCH (22:46)
[2021-06-27] MEDS: Insulin Lispro 100 Unit/ML 3 ML KwikPen SUBCUT SCH ×5 (00:47→22:30)
--- NOTE | 2021-06-27 07:46 | PCM.PN ---
<Demetri Salter - Last Filed: 06/27/21 10:26> - General Info Date of Service: 06/27/21 Admission Dx/Problem (Free Text): Admission Diagnosis/Problem Admission Diagnosis/Problem acute respiratory failure secondary to COVID-19 pneumonia Functional Status: Reports: Pain Controlled, Tolerating Diet, Ambulating, Urinating, Incentive Spirometry, Other (Acapella ). Denies: New Symptoms - Review of Systems General: Reports: No Symptoms. Denies: Fever, Weakness, Fatigue, Malaise, Chills HEENT: Reports: No Symptoms. Denies: Headaches, Sore Throat Pulmonary: Reports: Shortness of Breath, Cough, Sputum. Denies: Pleuritic Chest Pain, Wheezing Cardiovascular: Reports: Dyspnea on Exertion, Edema (greatly improved ). Denies: Chest Pain, Palpitations Gastrointestinal: Reports: No Symptoms. Denies: Abdominal Pain, Constipation, Diarrhea, Nausea, Vomiting Genitourinary: Reports: No Symptoms. Denies: Pain Musculoskeletal: Reports: No Symptoms Skin: Reports: No Symptoms. Denies: Cyanosis Neurological: Reports: No Symptoms. Denies: Confusion, Dizziness, Headache, Numbness, Pre-Existing Deficit, Seizure, Syncope, Tingling, Difficulty Walking, Weakness, Gait Disturbance Psychiatric: Reports: No Symptoms - Patient Data Vitals - Most Recent: Last Vital Signs Temp 98.8 F 06/26/21 20:18 Pulse 73 06/26/21 20:18 Resp 22 H 06/26/21 20:18 BP 175/74 H 06/26/21 20:20 Pulse Ox 92 L 06/27/21 06:29 Weight - Most Recent: 207.915 kg I&O - Last 24 Hours: Intake & Output 06/26/21 06/27/21 06/27/21 22:59 06:59 14:59 Intake Total 650 250 Output Total 2150 Balance -1500 250 Lab Results Last 24 Hours: Laboratory Results - last 24 hr 06/26/21 06/26/21 06/26/21 Range/Units 07:34 07:34 11:29 WBC 6.62 (4.23-9.07) K/mm3 RBC 5.69 (4.63-6.08) M/mm3 Hgb 12.2 L (13.7-17.5) gm/dl Hct 45.3 (40.1-51.0) % MCV 79.6 (79.0-92.2) fl MCH 21.4 L (25.7-32.2) pg MCHC 26.9 L (32.2-35.5) g/dl RDW Std Deviation 58.7 H (35.1-43.9) fL Plt Count 385 H (163-337) K/mm3 MPV 9.1 L (9.4-12.3) fl Neut % (Auto) 62.8 (34.0-67.9) % Lymph % (Auto) 18.0 L (21.8-53.1) % [place] % (Auto) 18.3 H (5.3-12.2) % Eos % (Auto) 0.5 L (0.8-7.0) Baso % (Auto) 0.2 (0.1-1.2) % Neut # (Auto) 4.17 (1.78-5.38) K/mm3 Lymph # (Auto) 1.19 L (1.32-3.57) K/mm3 [place] # (Auto) 1.21 H (0.30-0.82) K/mm3 Eos # (Auto) 0.03 L (0.04-0.54) K/mm3 Baso # (Auto) 0.01 (0.01-0.08) K/mm3 Manual Slide Review Abnormal smear D-Dimer, Quantitative (0.19-0.50) mg/L Sodium 144 (136-145) mEq/L Potassium 4.0 (3.5-5.1) mEq/L Chloride 98 (98-107) mEq/L Carbon Dioxide 41 H* (21-32) mEq/L Anion Gap 9.0 (5-15) BUN 18 (7-18) mg/dL Creatinine 0.8 (0.7-1.3) mg/dL Est Cr Clr Drug Dosing 155.15 mL/min Estimated GFR (MDRD) > 60 (>60) mL/min BUN/Creatinine Ratio 22.5 H (14-18) Glucose 83 (70-99) mg/dL POC Glucose 127 H (70-99) mg/dL Calcium 9.6 (8.5-10.1) mg/dL Total Bilirubin 0.5 (0.2-1.0) mg/dL AST 38 H (15-37) U/L ALT 34 (16-63) U/L Alkaline Phosphatase 79 (46-116) U/L C-Reactive Protein 3.5 H* (<1.0) mg/dL Total Protein 8.2 (6.4-8.2) g/dl Albumin 2.8 L (3.4-5.0) g/dl Globulin 5.4 gm/dL Albumin/Globulin Ratio 0.5 L (1-2) 06/26/21 06/26/21 06/27/21 Range/Units 16:25 20:33 06:12 WBC (4.23-9.07) K/mm3 RBC (4.63-6.08) M/mm3 Hgb (13.7-17.5) gm/dl Hct (40.1-51.0) % MCV (79.0-92.2) fl MCH (25.7-32.2) pg MCHC (32.2-35.5) g/dl RDW Std Deviation (35.1-43.9) fL Plt Count (163-337) K/mm3 MPV (9.4-12.3) fl Neut % (Auto) (34.0-67.9) % Lymph % (Auto) (21.8-53.1) % [place] % (Auto) (5.3-12.2) % Eos % (Auto) (0.8-7.0) Baso % (Auto) (0.1-1.2) % Neut # (Auto) (1.78-5.38) K/mm3 Lymph # (Auto) (1.32-3.57) K/mm3 [place] # (Auto) (0.30-0.82) K/mm3 Eos # (Auto) (0.04-0.54) K/mm3 Baso # (Auto) (0.01-0.08) K/mm3 Manual Slide Review D-Dimer, Quantitative 2.78 H (0.19-0.50) mg/L Sodium (136-145) mEq/L Potassium (3.5-5.1) mEq/L Chloride (98-107) mEq/L Carbon Dioxide (21-32) mEq/L Anion Gap (5-15) BUN (7-18) mg/dL Creatinine (0.7-1.3) mg/dL Est Cr Clr Drug Dosing mL/min Estimated GFR (MDRD) (>60) mL/min BUN/Creatinine Ratio (14-18) Glucose (70-99) mg/dL POC Glucose 163 H 155 H (70-99) mg/dL Calcium (8.5-10.1) mg/dL Total Bilirubin (0.2-1.0) mg/dL AST (15-37) U/L ALT (16-63) U/L Alkaline Phosphatase (46-116) U/L C-Reactive Protein (<1.0) mg/dL Total Protein (6.4-8.2) g/dl Albumin (3.4-5.0) g/dl Globulin gm/dL Albumin/Globulin Ratio (1-2) 06/27/21 06/27/21 06/27/21 Range/Units 06:15 06:15 06:25 WBC 6.18 (4.23-9.07) K/mm3 RBC 5.50 (4.63-6.08) M/mm3 Hgb 11.9 L (13.7-17.5) gm/dl Hct 43.2 (40.1-51.0) % MCV 78.5 L (79.0-92.2) fl MCH 21.6 L (25.7-32.2) pg MCHC 27.5 L (32.2-35.5) g/dl RDW Std Deviation 57.9 H (35.1-43.9) fL Plt Count 372 H (163-337) K/mm3 MPV 9.7 (9.4-12.3) fl Neut % (Auto) 43.1 (34.0-67.9) % Lymph % (Auto) 33.3 (21.8-53.1) % [place] % (Auto) 22.3 H (5.3-12.2) % Eos % (Auto) 1.0 (0.8-7.0) Baso % (Auto) 0.3 (0.1-1.2) % Neut # (Auto) 2.66 (1.78-5.38) K/mm3 Lymph # (Auto) 2.06 (1.32-3.57) K/mm3 [place] # (Auto) 1.38 H (0.30-0.82) K/mm3 Eos # (Auto) 0.06 (0.04-0.54) K/mm3 Baso # (Auto) 0.02 (0.01-0.08) K/mm3 Manual Slide Review Abnormal smear D-Dimer, Quantitative (0.19-0.50) mg/L Sodium 143 (136-145) mEq/L Potassium 4.4 (3.5-5.1) mEq/L Chloride 99 (98-107) mEq/L Carbon Dioxide 39 H (21-32) mEq/L Anion Gap 9.4 (5-15) BUN 21 H (7-18) mg/dL Creatinine 0.8 (0.7-1.3) mg/dL Est Cr Clr Drug Dosing 155.15 mL/min Estimated GFR (MDRD) > 60 (>60) mL/min BUN/Creatinine Ratio 26.3 H (14-18) Glucose 81 (70-99) mg/dL POC Glucose 84 (70-99) mg/dL Calcium 8.9 (8.5-10.1) mg/dL Total Bilirubin 0.3 (0.2-1.0) mg/dL AST 43 H (15-37) U/L ALT 39 (16-63) U/L Alkaline Phosphatase 69 (46-116) U/L C-Reactive Protein 2.2 H* (<1.0) mg/dL Total Protein 7.1 (6.4-8.2) g/dl Albumin 2.6 L (3.4-5.0) g/dl Globulin 4.5 gm/dL Albumin/Globulin Ratio 0.6 L (1-2) Med Orders - Current: Current Medications Acetaminophen (Acetaminophen 325 Mg Tab) 650 mg PO Q4H PRN PRN Reason: Pain/Fever Last Admin: 06/26/21 09:00 Dose: 650 mg Documented by: Albuterol (Albuterol 6.7 Gm Inhaler) 0 gm INH Q2H PRN PRN Reason: SOB/Wheezing Albuterol/Ipratropium (Albuterol/Ipratropium 3.0-0.5 Mg/3 Ml Neb Soln) 3 ml NEB QIDRT PRN PRN Reason: Shortness Of Breath/wheezing Last Admin: 06/26/21 19:43 Dose: 3 ml Documented by: Calcium Carbonate/Glycine (Calcium Carbonate 600 Mg Tab) 600 mg PO BIDMEALS [facility] Last Admin: 06/26/21 22:46 Dose: 600 mg Documented by: Cholecalciferol (Cholecalciferol (Vitamin D3) 5,000 Unit Cap) 5,000 unit PO DAILY [facility] Last Admin: 06/26/21 08:57 Dose: 5,000 unit Documented by: Clonidine HCl (Clonidine 0.1 Mg Tab) 0.2 mg PO Q8H [facility] Last Admin: 06/26/21 20:20 Dose: 0.2 mg Documented by: Dexamethasone (Dexamethasone 4 Mg Tab) 6 mg PO DAILY [facility] Stop: 07/01/21 09:01 Last Admin: 06/26/21 08:57 Dose: 6 mg Documented by: Enoxaparin Sodium (Enoxaparin 150 Mg/1 Ml Syringe) 230 mg SUBCUT Q12H [facility] Last Admin: 06/26/21 20:34 Dose: 230 mg Documented by: Famotidine (Famotidine 20 Mg Tab) 20 mg PO BID [facility] Last Admin: 06/26/21 20:20 Dose: 20 mg Documented by: Furosemide (Furosemide 40 Mg/4 Ml Vial) 40 mg IVPUSH BIDDIURETIC [facility] Last Admin: 06/26/21 13:39 Dose: 40 mg Documented by: Guaifenesin (Guaifenesin 100 Mg/5 Ml Soln 10 Ml Ud Cup) 200 mg PO Q4H PRN PRN Reason: Cough Last Admin: 06/26/21 21:56 Dose: 200 mg Documented by: Hydralazine HCl (Hydralazine 20 Mg/Ml Sdv) 10 mg IVPUSH Q4H PRN PRN Reason: SBP >180 or DBP >100 Insulin Human Lispro (Insulin Lispro 100 Unit/Ml 3 Ml Kwikpen) 0 unit SUBCUT QIDACANDBED [facility]; Protocol Last Admin: 06/27/21 00:47 Dose: Not Given Documented by: Losartan Potassium (Losartan 25 Mg Tab) 25 mg PO DAILY [facility] Last Admin: 06/26/21 08:57 Dose: 25 mg Documented by: Magnesium Oxide (Magnesium Oxide 400 Mg Tab) 400 mg PO DAILY [facility] Last Admin: 06/26/21 22:46 Dose: 400 mg Documented by: Miscellaneous Information (Remove Patch) 0 ea TRDERM DAILY [facility] Last Admin: 06/26/21 08:59 Dose: 1 ea Documented by: Multivitamins/Minerals/Vitamin C (Multivitamin Tab) 1 tab PO DAILY [facility] Last Admin: 06/26/21 22:46 Dose: 1 tab Documented by: Nicotine (Nicotine 14 Mg/24 Hr Patch) 14 mg TRDERM DAILY [facility] Last Admin: 06/26/21 08:59 Dose: 14 mg Documented by: Ondansetron HCl (Ondansetron 4 Mg/2 Ml Sdv) 4 mg IV Q6H PRN PRN Reason: Nausea/Vomiting Zinc Sulfate (Zinc Sulfate 220 Mg Cap) 220 mg PO DAILY [facility] Last Admin: 06/26/21 08:57 Dose: 220 mg Documented by: Discontinued Medications Amlodipine Besylate (Amlodipine 10 Mg Tab) 10 mg PO DAILY [facility] Last Admin: 06/24/21 09:48 Dose: 10 mg Documented by: Atorvastatin Calcium (Atorvastatin 40 Mg Tab) 40 mg PO DAILY [facility] Last Admin: 06/24/21 09:47 Dose: 40 mg Documented by: Dexamethasone (Dexamethasone 4 Mg/Ml 5 Ml Mdv) 6 mg IV ONETIME ONE Stop: 06/22/21 20:25 Last Admin: 06/22/21 21:09 Dose: 6 mg Documented by: Diltiazem HCl (Diltiazem 180 Mg Cap.Cd) 180 mg PO DAILY [facility] Last Admin: 06/24/21 09:47 Dose: 180 mg Documented by: Enoxaparin Sodium (Enoxaparin 150 Mg/1 Ml Syringe) 230 mg 1 mg/kg (230 mg) SUBCUT DAILY [facility] Last Admin: 06/23/21 08:23 Dose: 230 mg Documented by: Furosemide (Furosemide 40 Mg/4 Ml Vial) 40 mg IVPUSH NOW ONE Stop: 06/22/21 20:25 Last Admin: 06/22/21 21:07 Dose: 40 mg Documented by: Furosemide (Furosemide 40 Mg Tab) 40 mg PO DAILY [facility] Last Admin: 06/23/21 09:44 Dose: 40 mg Documented by: Furosemide (Furosemide 20 Mg/2 Ml Vial) 20 mg IVPUSH BIDDIURETIC [facility] Last Admin: 06/24/21 05:56 Dose: 20 mg Documented by: Furosemide (Furosemide 40 Mg/4 Ml Vial) 20 mg IVPUSH NOW ONE Stop: 06/24/21 10:30 Last Admin: 06/24/21 11:39 Dose: 20 mg Documented by: Hydrochlorothiazide (Hydrochlorothiazide 25 Mg Tab) 25 mg PO DAILY [facility] Last Admin: 06/24/21 09:46 Dose: 25 mg Documented by: Remdesivir 200 mg/ Sodium (Chloride) 250 mls @ 250 mls/hr IV ONETIME ONE Stop: 06/22/21 20:26 Last Admin: 06/22/21 21:09 Dose: 250 mls/hr Documented by: Sodium Chloride (Normal Saline) 100 mls @ 70 mls/min IV ASDIRECTED [facility] Remdesivir 100 mg/ Sodium (Chloride) 250 mls @ 250 mls/hr IV Q24H [facility] Stop: 06/26/21 20:59 Last Admin: 06/26/21 20:27 Dose: 250 mls/hr Documented by: Sodium Chloride (Normal Saline) Confirm Administered Dose 250 mls @ as directed .ROUTE .STK-MED ONE Stop: 06/26/21 20:04 Last Admin: 06/27/21 00:47 Dose: Not Given Documented by: Ibuprofen (Ibuprofen 600 Mg Tab) 600 mg PO Q6H PRN PRN Reason: Pain/Fever Iopamidol (Iopamidol 755 Mg/Ml 100 Ml Bottle) 100 ml IVPUSH ONETIME ONE Stop: 06/22/21 21:20 Last Admin: 06/22/21 21:43 Dose: Not Given Documented by: Losartan Potassium (Losartan 100 Mg Tab) 100 mg PO DAILY [facility] Last Admin: 06/23/21 09:41 Dose: 100 mg Documented by: Semaglutide [ Rybelsus] 7 Mg Tablet 0 each PO DAILY [facility] Sodium Chloride (Sodium Chloride 0.9% 10 Ml Sdv) 10 ml FLUSH ONETIME ONE Stop: 06/22/21 21:20 Last Admin: 06/22/21 21:43 Dose: Not Given Documented by: - Exam Quality Assessment: Supplemental Oxygen (4L), DVT Prophylaxis. No: Urine Catheter General: Alert, Oriented, Cooperative, No Acute Distress HEENT: Pupils Equal, Pupils Reactive, Mucous Membr. Moist/[place] Neck: Supple, Trachea Midline Lungs: Normal Respiratory Effort, Decreased Breath Sounds, Crackles, Rhonchi Cardiovascular: Regular Rate, Regular Rhythm GI/Abdominal Exam: Normal Bowel Sounds, Soft, Non-Tender, No Distention, No Abnormal Bruit (Male) Exam: Deferred Back Exam: Normal Inspection, Full Range of Motion Extremities: Normal Range of Motion, Pedal Edema (1+), Other (Bilateral lower extremity discoloration and scaling consistent with peripheral vascular disease.) Skin: Warm, Dry, Intact Neurological: No New Focal Deficit Psy/Mental Status: Alert, Normal Affect, Normal Mood - Patient Data Lab Results Last 24 hrs: Laboratory Results - last 24 hr 06/26/21 06/26/21 06/26/21 Range/Units 07:34 07:34 11:29 WBC 6.62 (4.23-9.07) K/mm3 RBC 5.69 (4.63-6.08) M/mm3 Hgb 12.2 L (13.7-17.5) gm/dl Hct 45.3 (40.1-51.0) % MCV 79.6 (79.0-92.2) fl MCH 21.4 L (25.7-32.2) pg MCHC 26.9 L (32.2-35.5) g/dl RDW Std Deviation 58.7 H (35.1-43.9) fL Plt Count 385 H (163-337) K/mm3 MPV 9.1 L (9.4-12.3) fl Neut % (Auto) 62.8 (34.0-67.9) % Lymph % (Auto) 18.0 L (21.8-53.1) % [place] % (Auto) 18.3 H (5.3-12.2) % Eos % (Auto) 0.5 L (0.8-7.0) Baso % (Auto) 0.2 (0.1-1.2) % Neut # (Auto) 4.17 (1.78-5.38) K/mm3 Lymph # (Auto) 1.19 L (1.32-3.57) K/mm3 [place] # (Auto) 1.21 H (0.30-0.82) K/mm3 Eos # (Auto) 0.03 L (0.04-0.54) K/mm3 Baso # (Auto) 0.01 (0.01-0.08) K/mm3 Manual Slide Review Abnormal smear D-Dimer, Quantitative (0.19-0.50) mg/L Sodium 144 (136-145) mEq/L Potassium 4.0 (3.5-5.1) mEq/L Chloride 98 (98-107) mEq/L Carbon Dioxide 41 H* (21-32) mEq/L Anion Gap 9.0 (5-15) BUN 18 (7-18) mg/dL Creatinine 0.8 (0.7-1.3) mg/dL Est Cr Clr Drug Dosing 155.15 mL/min Estimated GFR (MDRD) > 60 (>60) mL/min BUN/Creatinine Ratio 22.5 H (14-18) Glucose 83 (70-99) mg/dL POC Glucose 127 H (70-99) mg/dL Calcium 9.6 (8.5-10.1) mg/dL Total Bilirubin 0.5 (0.2-1.0) mg/dL AST 38 H (15-37) U/L ALT 34 (16-63) U/L Alkaline Phosphatase 79 (46-116) U/L C-Reactive Protein 3.5 H* (<1.0) mg/dL Total Protein 8.2 (6.4-8.2) g/dl Albumin 2.8 L (3.4-5.0) g/dl Globulin 5.4 gm/dL Albumin/Globulin Ratio 0.5 L (1-2) 06/26/21 06/26/21 06/27/21 Range/Units 16:25 20:33 06:12 WBC (4.23-9.07) K/mm3 RBC (4.63-6.08) M/mm3 Hgb (13.7-17.5) gm/dl Hct (40.1-51.0) % MCV (79.0-92.2) fl MCH (25.7-32.2) pg MCHC (32.2-35.5) g/dl RDW Std Deviation (35.1-43.9) fL Plt Count (163-337) K/mm3 MPV (9.4-12.3) fl Neut % (Auto) (34.0-67.9) % Lymph % (Auto) (21.8-53.1) % [place] % (Auto) (5.3-12.2) % Eos % (Auto) (0.8-7.0) Baso % (Auto) (0.1-1.2) % Neut # (Auto) (1.78-5.38) K/mm3 Lymph # (Auto) (1.32-3.57) K/mm3 [place] # (Auto) (0.30-0.82) K/mm3 Eos # (Auto) (0.04-0.54) K/mm3 Baso # (Auto) (0.01-0.08) K/mm3 Manual Slide Review D-Dimer, Quantitative 2.78 H (0.19-0.50) mg/L Sodium (136-145) mEq/L Potassium (3.5-5.1) mEq/L Chloride (98-107) mEq/L Carbon Dioxide (21-32) mEq/L Anion Gap (5-15) BUN (7-18) mg/dL Creatinine (0.7-1.3) mg/dL Est Cr Clr Drug Dosing mL/min Estimated GFR (MDRD) (>60) mL/min BUN/Creatinine Ratio (14-18) Glucose (70-99) mg/dL POC Glucose 163 H 155 H (70-99) mg/dL Calcium (8.5-10.1) mg/dL Total Bilirubin (0.2-1.0) mg/dL AST (15-37) U/L ALT (16-63) U/L Alkaline Phosphatase (46-116) U/L C-Reactive Protein (<1.0) mg/dL Total Protein (6.4-8.2) g/dl Albumin (3.4-5.0) g/dl Globulin gm/dL Albumin/Globulin Ratio (1-2) 06/27/21 06/27/21 06/27/21 Range/Units 06:15 06:15 06:25 WBC 6.18 (4.23-9.07) K/mm3 RBC 5.50 (4.63-6.08) M/mm3 Hgb 11.9 L (13.7-17.5) gm/dl Hct 43.2 (40.1-51.0) % MCV 78.5 L (79.0-92.2) fl MCH 21.6 L (25.7-32.2) pg MCHC 27.5 L (32.2-35.5) g/dl RDW Std Deviation 57.9 H (35.1-43.9) fL Plt Count 372 H (163-337) K/mm3 MPV 9.7 (9.4-12.3) fl Neut % (Auto) 43.1 (34.0-67.9) % Lymph % (Auto) 33.3 (21.8-53.1) % [place] % (Auto) 22.3 H (5.3-12.2) % Eos % (Auto) 1.0 (0.8-7.0) Baso % (Auto) 0.3 (0.1-1.2) % Neut # (Auto) 2.66 (1.78-5.38) K/mm3 Lymph # (Auto) 2.06 (1.32-3.57) K/mm3 [place] # (Auto) 1.38 H (0.30-0.82) K/mm3 Eos # (Auto) 0.06 (0.04-0.54) K/mm3 Baso # (Auto) 0.02 (0.01-0.08) K/mm3 Manual Slide Review Abnormal smear D-Dimer, Quantitative (0.19-0.50) mg/L Sodium 143 (136-145) mEq/L Potassium 4.4 (3.5-5.1) mEq/L Chloride 99 (98-107) mEq/L Carbon Dioxide 39 H (21-32) mEq/L Anion Gap 9.4 (5-15) BUN 21 H (7-18) mg/dL Creatinine 0.8 (0.7-1.3) mg/dL Est Cr Clr Drug Dosing 155.15 mL/min Estimated GFR (MDRD) > 60 (>60) mL/min BUN/Creatinine Ratio 26.3 H (14-18) Glucose 81 (70-99) mg/dL POC Glucose 84 (70-99) mg/dL Calcium 8.9 (8.5-10.1) mg/dL Total Bilirubin 0.3 (0.2-1.0) mg/dL AST 43 H (15-37) U/L ALT 39 (16-63) U/L Alkaline Phosphatase 69 (46-116) U/L C-Reactive Protein 2.2 H* (<1.0) mg/dL Total Protein 7.1 (6.4-8.2) g/dl Albumin 2.6 L (3.4-5.0) g/dl Globulin 4.5 gm/dL Albumin/Globulin Ratio 0.6 L (1-2) Result Diagrams: 06/27/21 06:15 06/27/21 06:15 Sepsis Event Note - Evaluation Sepsis Screening Result: No Definite Risk - Focused Exam Vital Signs: Vital Signs Temp Pulse Resp BP Pulse Ox Pulse Ox 06/27/21 06:29 92 L 06/26/21 20:20 175/74 H 06/26/21 20:18 98.8 F 73 22 H 175/74 H 98 - Problem List & Annotations (1) Morbid obesity SNOMED Code(s): 763610374 Code(s): E66.01 - MORBID (SEVERE) OBESITY DUE TO EXCESS CALORIES Status: Chronic Priority: Medium Current Visit: Yes (2) Tobacco dependence SNOMED Code(s): 83180321 Code(s): F17.200 - NICOTINE DEPENDENCE, UNSPECIFIED, UNCOMPLICATED Status: Chronic Priority: Medium Current Visit: Yes (3) Type II diabetes mellitus SNOMED Code(s): 45847452 Code(s): E11.9 - TYPE 2 DIABETES MELLITUS WITHOUT COMPLICATIONS Status: Chronic Priority: Medium Current Visit: Yes Qualifiers: Diabetes mellitus residential insulin use: without intermodal dispatcher use Diabetes mellitus complication status: with other specified complication Qualified Code(s): E11.69 - Type 2 diabetes mellitus with other specified complication (4) JORGE L (iron deficiency anemia) SNOMED Code(s): 86273794 Code(s): D50.9 - IRON DEFICIENCY ANEMIA, UNSPECIFIED Status: Chronic Priority: Low Current Visit: No Qualifiers: Iron deficiency anemia type: unspecified iron deficiency Qualified Code(s): D50.9 - Iron deficiency anemia, unspecified (5) Acute hypoxemic respiratory failure SNOMED Code(s): 341796334 Code(s): J96.01 - ACUTE RESPIRATORY FAILURE WITH HYPOXIA Status: Acute Priority: High Current Visit: Yes (6) Anasarca SNOMED Code(s): 199548463, 232356661 Code(s): R60.1 - GENERALIZED EDEMA Status: Acute Priority: High Current Visit: Yes (7) COVID-19 SNOMED Code(s): 360046184 Code(s): U07.1 - COVID-19 Status: Acute Priority: High Current Visit: Yes (8) Vitamin D deficiency SNOMED Code(s): 49624098 Code(s): E55.9 - VITAMIN D DEFICIENCY, UNSPECIFIED Status: Acute Priority: Medium Current Visit: Yes (9) Elevated d-dimer SNOMED Code(s): 438447038 Code(s): R79.89 - OTHER SPECIFIED ABNORMAL FINDINGS OF BLOOD CHEMISTRY Status: Acute Current Visit: Yes - Problem List Review Problem List Initiated/Reviewed/Updated: Yes - My Orders Last 24 Hours: My Active Orders 06/28/21 05:11 CBC WITH AUTO DIFF [HEME] AM CMP [COMPREHENSIVE METABOLIC PN,CMP] [CHEM] AM CRP [C-REACTIVE PROTEIN] [CHEM] AM 06/29/21 05:11 CBC WITH AUTO DIFF [HEME] AM CMP [COMPREHENSIVE METABOLIC PN,CMP] [CHEM] AM CRP [C-REACTIVE PROTEIN] [CHEM] AM D-DIMER QUANTITATIVE [COAG] Q48H 06/30/21 05:11 CBC WITH AUTO DIFF [HEME] AM CMP [COMPREHENSIVE METABOLIC PN,CMP] [CHEM] AM CRP [C-REACTIVE PROTEIN] [CHEM] AM 07/01/21 05:11 CBC WITH AUTO DIFF [HEME] AM CMP [COMPREHENSIVE METABOLIC PN,CMP] [CHEM] AM CRP [C-REACTIVE PROTEIN] [CHEM] AM - Assessment Assessment:: 06/24/2021 This is a 35-year-old male who is morbidly obese admitted for COVID-19 pneumonia and anasarca. Echo was obtained yesterday and shows 1. LVEF by visual ro[place] mation of 60 to 65%. 2. Technically difficult study with suboptimal image quality. Suspect normal LV systolic function. Unable to visualize all segments for assessment of regional wall motion. Valves not well visualized. 3. The right ventricle was not well visualized. In short axis there is some septal flattening which may be consistent with RV pressure overload (Slide 45). Also abnormal septal bounce and apical four-chamber view which can be seen with elevated RV pressure. 4. There is no evidence of pericardial effusion. WBC is elevated 11.22, which is likely steroid related. Platelets are elevated 409,000. Sodium is 140. Potassium 4.8. Carbon dioxide 38. Anion gap is 7.8. BUN is 15. Creatinine 0.8. GFR greater than 60. Glucose has been between 108 and 146. Bilirubin 0.3. AST is 24, ALT 13, alkaline phosphatase 80. CRP is 6.4. Albumin is 2.5. Vitamin D obtained yesterday was 21.7 and hemoglobin A1c was 7.6. He is down 10 pounds. Blood pressures have been in the 150s systolic. He is on 4 L via nasal cannula. Discussed medications with Dr. Haddad today. We will continue his Cozaar and stop all other diuretics. We will also discontinue his diltiazem. We will start him on 40 mg twice daily diuretic dosing of Lasix and monitor his intake and output. We will place a sodium restriction on him. Procalcitonin is pending. We will continue remdesivir and dexamethasone. Length of stay will likely be 3-4 more days. 06/25/2021 35-year-old male admitted to the floor for treatment of his COVID-19 pneumonia and anasarca. He is down over 20 pounds today and reports he feels much better. He is on 5 L of oxygen currently but states his respiratory status has improved to. He will continue on remdesivir and dexamethasone. He is receiving 40 mg twice daily Lasix IV push and we will continue this until his edema has improved. Labs today show a WBC of 10.13, likely steroid related. Hemoglobin is 10.6. Platelet 400,000. Neutrophils are elevated 73.3. D-dimer is 1.52. Sodium 142. Potassium 4.1. Chloride 99. Carbon dioxide 39. Anion gap is 8.1. BUN is 18. Creatinine 0.7. GFR is greater than 60. Glucose has been 1 64- 95. Magnesium is 2.0. Bilirubin 0.5. AST is 25, ALT 30, alkaline phosphatase 74. CRP is down to 4.0. Albumin is 2.7. We will continue current treatment plan. Unknown length of stay due to severity of Covid symptoms and need for continued diuresis. 06/26/2021 The patient is a 35-year-old gentleman who was admitted secondary to COVID-19 pneumonia as well as hypoxia. Review of previous laboratory studies have indicated that the patient is a chronic CO2 retainer likely secondary to obesity associated hypoventilation. The patient is on remdesivir scheduled to complete on June 27, 2021 and he will likely be appropriate for discharge at that time. Patient's oxygen saturations will be kept around 92%. The patient will need to have follow-up with his primary care physician for his hypoventilation syndrome. Repeat laboratory studies have been ordered. He currently is also type II diabetic and the patient's Accu-Cheks will continue as well as his carb constant diet. The patient had elevations of his D-dimer and is currently on Lovenox 1 mg/kg twice daily as treatment dose as he has been unable to have a CT scan due to his weight. 06/27/2021 35-year-old morbidly obese male admitted to the floor for treatment of COVID-19 pneumonia and anasarca. He will complete his last dose of remdesivir today and continues on dexamethasone. Currently on 4 L of oxygen. He is down 56 pounds and we will continue diuresis through today. WBC is 6.18. CULLEN globin 11.9. Platelets 372,000. Neutrophils are normal at 43.1. D-dimer is 2.78. He remains on 1 mg/kg Lovenox. Sodium is 143. Potassium 4.4. Chloride 99. Carbon dioxide is down to 39. Anion gap is 9.4. BUN is 21. Creatinine 0.8. GFR greater than 60. Glucose is been between 84 and 163. Bilirubin 0.3. AST is 43, ALT 39, alkaline phosphatase 69. CRP is down to 2.2. Albumin is 2.6. Likely discharge tomorrow pending continued improvement. Patient will likely require oxygen at discharge. Recommend outpatient sleep study. - Plan Plan:: COVID-19 Acute hypoxemic respiratory failure * Prone whenever able. * CPAP when sleeping/napping * Oxygen as needed with goal saturation between 88 and 95%. * RT consult * Monitor need for high flow oxygen * Zinc supplementation * Famotidine 20 mg twice daily * Dexamethasone 6 mg for 10 days total * Remdesivir for 5 days total - last dose today * Continuous pulse oximetry * Telemetry * I-S/Acapella * Airborne/contact precautions * PRN duonebs * PRN albuterol MDI * Daily labs Morbid obesity * Dietitian consult Tobacco dependence * Cessation counseling * Nicotine patch while hospitalized * Offer nicotine patches at discharge Type II diabetes mellitus * Hold home p.o. semaglutide * 4 times daily before meals and bedtime blood glucose checks * Low intensity sliding scale insulin * A1c 7.6 * Dietitian consult * Consider school vocational educator JORGE L (iron deficiency anemia) * No acute concerns * No home iron supplementation * Monitor Vitamin D deficiency * Vitamin D 21.7 * Start 5000 unit daily supplementation Anasarca * Continue home cozaar * Discontinue home hydrochlorothiazide, Lasix, amlodipine * Lasix 40 mg twice daily diuretic dosing Lasix IV push * Echocardiogram obtained as noted * HAJA julio * Monitor daily weights * Monitor strict intake and output * Low sodium diet Elevated D-Dimer * Unfortunately patient unable to fit in CT scanner for CTA * Monitor D-dimer every 48 * Lovenox 1 mg/kg twice daily Code status: Full Code PCP: Yelena Torrez PA-C DVT prophylaxis: Lovenox Disposition: Patient admitted to the floor for treatment and management of his COVID-19 pneumonia and acute respiratory failure. We will also work-up his edema. Length of stay likely 4 to 5 days pending progress LOS >96 hrs due to need for continued COVID-19 treatment and diuresis. <Sivakumar Payne - Last Filed: 06/27/21 13:40> - Patient Data Vitals - Most Recent: Last Vital Signs Temp 36.8 C 06/27/21 07:43 Pulse 80 06/27/21 07:43 Resp 19 06/27/21 07:43 BP 156/79 H 06/27/21 13:33 Pulse Ox 88 L 06/27/21 09:22 I&O - Last 24 Hours: Intake & Output 06/26/21 06/27/21 06/27/21 22:59 06:59 14:59 Intake Total 970 1450 800 Output Total 2150 1700 1800 Balance -1180 -250 -1000 Lab Results Last 24 Hours: Laboratory Results - last 24 hr 06/26/21 06/26/21 06/27/21 Range/Units 16:25 20:33 06:12 WBC (4.23-9.07) K/mm3 RBC (4.63-6.08) M/mm3 Hgb (13.7-17.5) gm/dl Hct (40.1-51.0) % MCV (79.0-92.2) fl MCH (25.7-32.2) pg MCHC (32.2-35.5) g/dl RDW Std Deviation (35.1-43.9) fL Plt Count (163-337) K/mm3 MPV (9.4-12.3) fl Neut % (Auto) (34.0-67.9) % Lymph % (Auto) (21.8-53.1) % [place] % (Auto) (5.3-12.2) % Eos % (Auto) (0.8-7.0) Baso % (Auto) (0.1-1.2) % Neut # (Auto) (1.78-5.38) K/mm3 Lymph # (Auto) (1.32-3.57) K/mm3 [place] # (Auto) (0.30-0.82) K/mm3 Eos # (Auto) (0.04-0.54) K/mm3 Baso # (Auto) (0.01-0.08) K/mm3 Manual Slide Review D-Dimer, Quantitative 2.78 H (0.19-0.50) mg/L Sodium (136-145) mEq/L Potassium (3.5-5.1) mEq/L Chloride (98-107) mEq/L Carbon Dioxide (21-32) mEq/L Anion Gap (5-15) BUN (7-18) mg/dL Creatinine (0.7-1.3) mg/dL Est Cr Clr Drug Dosing mL/min Estimated GFR (MDRD) (>60) mL/min BUN/Creatinine Ratio (14-18) Glucose (70-99) mg/dL POC Glucose 163 H 155 H (70-99) mg/dL Calcium (8.5-10.1) mg/dL Total Bilirubin (0.2-1.0) mg/dL AST (15-37) U/L ALT (16-63) U/L Alkaline Phosphatase (46-116) U/L C-Reactive Protein (<1.0) mg/dL Total Protein (6.4-8.2) g/dl Albumin (3.4-5.0) g/dl Globulin gm/dL Albumin/Globulin Ratio (1-2) 06/27/21 06/27/21 06/27/21 Range/Units 06:15 06:15 06:25 WBC 6.18 (4.23-9.07) K/mm3 RBC 5.50 (4.63-6.08) M/mm3 Hgb 11.9 L (13.7-17.5) gm/dl Hct 43.2 (40.1-51.0) % MCV 78.5 L (79.0-92.2) fl MCH 21.6 L (25.7-32.2) pg MCHC 27.5 L (32.2-35.5) g/dl RDW Std Deviation 57.9 H (35.1-43.9) fL Plt Count 372 H (163-337) K/mm3 MPV 9.7 (9.4-12.3) fl Neut % (Auto) 43.1 (34.0-67.9) % Lymph % (Auto) 33.3 (21.8-53.1) % [place] % (Auto) 22.3 H (5.3-12.2) % Eos % (Auto) 1.0 (0.8-7.0) Baso % (Auto) 0.3 (0.1-1.2) % Neut # (Auto) 2.66 (1.78-5.38) K/mm3 Lymph # (Auto) 2.06 (1.32-3.57) K/mm3 [place] # (Auto) 1.38 H (0.30-0.82) K/mm3 Eos # (Auto) 0.06 (0.04-0.54) K/mm3 Baso # (Auto) 0.02 (0.01-0.08) K/mm3 Manual Slide Review Abnormal smear D-Dimer, Quantitative (0.19-0.50) mg/L Sodium 143 (136-145) mEq/L Potassium 4.4 (3.5-5.1) mEq/L Chloride 99 (98-107) mEq/L Carbon Dioxide 39 H (21-32) mEq/L Anion Gap 9.4 (5-15) BUN 21 H (7-18) mg/dL Creatinine 0.8 (0.7-1.3) mg/dL Est Cr Clr Drug Dosing 155.15 mL/min Estimated GFR (MDRD) > 60 (>60) mL/min BUN/Creatinine Ratio 26.3 H (14-18) Glucose 81 (70-99) mg/dL POC Glucose 84 (70-99) mg/dL Calcium 8.9 (8.5-10.1) mg/dL Total Bilirubin 0.3 (0.2-1.0) mg/dL AST 43 H (15-37) U/L ALT 39 (16-63) U/L Alkaline Phosphatase 69 (46-116) U/L C-Reactive Protein 2.2 H* (<1.0) mg/dL Total Protein 7.1 (6.4-8.2) g/dl Albumin 2.6 L (3.4-5.0) g/dl Globulin 4.5 gm/dL Albumin/Globulin Ratio 0.6 L (1-2) 06/27/ Range/Units 10:37 WBC (4.23-9.07) K/mm3 RBC (4.63-6.08) M/mm3 Hgb (13.7-17.5) gm/dl Hct (40.1-51.0) % MCV (79.0-92.2) fl MCH (25.7-32.2) pg MCHC (32.2-35.5) g/dl RDW Std Deviation (35.1-43.9) fL Plt Count (163-337) K/mm3 MPV (9.4-12.3) fl Neut % (Auto) (34.0-67.9) % Lymph % (Auto) (21.8-53.1) % [place] % (Auto) (5.3-12.2) % Eos % (Auto) (0.8-7.0) Baso % (Auto) (0.1-1.2) % Neut # (Auto) (1.78-5.38) K/mm3 Lymph # (Auto) (1.32-3.57) K/mm3 [place] # (Auto) (0.30-0.82) K/mm3 Eos # (Auto) (0.04-0.54) K/mm3 Baso # (Auto) (0.01-0.08) K/mm3 Manual Slide Review D-Dimer, Quantitative (0.19-0.50) mg/L Sodium (136-145) mEq/L Potassium (3.5-5.1) mEq/L Chloride (98-107) mEq/L Carbon Dioxide (21-32) mEq/L Anion Gap (5-15) BUN (7-18) mg/dL Creatinine (0.7-1.3) mg/dL Est Cr Clr Drug Dosing mL/min Estimated GFR (MDRD) (>60) mL/min BUN/Creatinine Ratio (14-18) Glucose (70-99) mg/dL POC Glucose 111 H (70-99) mg/dL Calcium (8.5-10.1) mg/dL Total Bilirubin (0.2-1.0) mg/dL AST (15-37) U/L ALT (16-63) U/L Alkaline Phosphatase (46-116) U/L C-Reactive Protein (<1.0) mg/dL Total Protein (6.4-8.2) g/dl Albumin (3.4-5.0) g/dl Globulin gm/dL Albumin/Globulin Ratio (1-2) Med Orders - Current: Current Medications Acetaminophen (Acetaminophen 325 Mg Tab) 650 mg PO Q4H PRN PRN Reason: Pain/Fever Last Admin: 06/26/21 09:00 Dose: 650 mg Documented by: Albuterol (Albuterol 6.7 Gm Inhaler) 0 gm INH Q2H PRN PRN Reason: SOB/Wheezing Albuterol/Ipratropium (Albuterol/Ipratropium 3.0-0.5 Mg/3 Ml Neb Soln) 3 ml NEB QIDRT PRN PRN Reason: Shortness Of Breath/wheezing Last Admin: 06/27/21 09:21 Dose: 3 ml Documented by: Calcium Carbonate/Glycine (Calcium Carbonate 600 Mg Tab) 600 mg PO BIDMEALS [facility] Last Admin: 06/27/21 07:48 Dose: 600 mg Documented by: Cholecalciferol (Cholecalciferol (Vitamin D3) 5,000 Unit Cap) 5,000 unit PO DAILY [facility] Last Admin: 06/27/21 08:53 Dose: 5,000 unit Documented by: Clonidine HCl (Clonidine 0.1 Mg Tab) 0.2 mg PO Q8H [facility] Last Admin: 06/27/21 13:33 Dose: 0.2 mg Documented by: Dexamethasone (Dexamethasone 4 Mg Tab) 6 mg PO DAILY [facility] Stop: 07/01/21 09:01 Last Admin: 06/27/21 08:54 Dose: 6 mg Documented by: Enoxaparin Sodium (Enoxaparin 150 Mg/1 Ml Syringe) 230 mg SUBCUT Q12H [facility] Last Admin: 06/27/21 08:54 Dose: 230 mg Documented by: Famotidine (Famotidine 20 Mg Tab) 20 mg PO BID [facility] Last Admin: 06/27/21 08:53 Dose: 20 mg Documented by: Furosemide (Furosemide 40 Mg/4 Ml Vial) 40 mg IVPUSH BIDDIURETIC [facility] Last Admin: 06/27/21 13:33 Dose: 40 mg Documented by: Guaifenesin (Guaifenesin 100 Mg/5 Ml Soln 10 Ml Ud Cup) 200 mg PO Q4H PRN PRN Reason: Cough Last Admin: 06/26/21 21:56 Dose: 200 mg Documented by: Hydralazine HCl (Hydralazine 20 Mg/Ml Sdv) 10 mg IVPUSH Q4H PRN PRN Reason: SBP >180 or DBP >100 Insulin Human Lispro (Insulin Lispro 100 Unit/Ml 3 Ml Kwikpen) 0 unit SUBCUT QIDACANDBED [facility]; Protocol Last Admin: 06/27/21 11:20 Dose: Not Given Documented by: Losartan Potassium (Losartan 25 Mg Tab) 25 mg PO DAILY [facility] Last Admin: 06/27/21 08:53 Dose: 25 mg Documented by: Magnesium Oxide (Magnesium Oxide 400 Mg Tab) 400 mg PO DAILY [facility] Last Admin: 06/27/21 08:53 Dose: 400 mg Documented by: Miscellaneous Information (Remove Patch) 0 ea TRDERM DAILY [facility] Last Admin: 06/27/21 08:55 Dose: 1 ea Documented by: Multivitamins/Minerals/Vitamin C (Multivitamin Tab) 1 tab PO DAILY [facility] Last Admin: 06/27/21 08:53 Dose: 1 tab Documented by: Nicotine (Nicotine 14 Mg/24 Hr Patch) 14 mg TRDERM DAILY [facility] Last Admin: 06/27/21 08:54 Dose: 14 mg Documented by: Ondansetron HCl (Ondansetron 4 Mg/2 Ml Sdv) 4 mg IV Q6H PRN PRN Reason: Nausea/Vomiting Zinc Sulfate (Zinc Sulfate 220 Mg Cap) 220 mg PO DAILY [facility] Last Admin: 06/27/21 08:53 Dose: 220 mg Documented by: Discontinued Medications Amlodipine Besylate (Amlodipine 10 Mg Tab) 10 mg PO DAILY [facility] Last Admin: 06/24/21 09:48 Dose: 10 mg Documented by: Atorvastatin Calcium (Atorvastatin 40 Mg Tab) 40 mg PO DAILY [facility] Last Admin: 06/24/21 09:47 Dose: 40 mg Documented by: Dexamethasone (Dexamethasone 4 Mg/Ml 5 Ml Mdv) 6 mg IV ONETIME ONE Stop: 06/22/21 20:25 Last Admin: 06/22/21 21:09 Dose: 6 mg Documented by: Diltiazem HCl (Diltiazem 180 Mg Cap.Cd) 180 mg PO DAILY [facility] Last Admin: 06/24/21 09:47 Dose: 180 mg Documented by: Enoxaparin Sodium (Enoxaparin 150 Mg/1 Ml Syringe) 230 mg 1 mg/kg (230 mg) MORALES BCUT DAILY [facility] Last Admin: 06/23/21 08:23 Dose: 230 mg Documented by: Furosemide (Furosemide 40 Mg/4 Ml Vial) 40 mg IVPUSH NOW ONE Stop: 06/22/21 20:25 Last Admin: 06/22/21 21:07 Dose: 40 mg Documented by: Furosemide (Furosemide 40 Mg Tab) 40 mg PO DAILY [facility] Last Admin: 06/23/21 09:44 Dose: 40 mg Documented by: Furosemide (Furosemide 20 Mg/2 Ml Vial) 20 mg IVPUSH BIDDIURETIC [facility] Last Admin: 06/24/21 05:56 Dose: 20 mg Documented by: Furosemide (Furosemide 40 Mg/4 Ml Vial) 20 mg IVPUSH NOW ONE Stop: 06/24/21 10:30 Last Admin: 06/24/21 11:39 Dose: 20 mg Documented by: Hydrochlorothiazide (Hydrochlorothiazide 25 Mg Tab) 25 mg PO DAILY [facility] Last Admin: 06/24/21 09:46 Dose: 25 mg Documented by: Remdesivir 200 mg/ Sodium (Chloride) 250 mls @ 250 mls/hr IV ONETIME ONE Stop: 06/22/21 20:26 Last Admin: 06/22/21 21:09 Dose: 250 mls/hr Documented by: Sodium Chloride (Normal Saline) 100 mls @ 70 mls/min IV ASDIRECTED [facility] Remdesivir 100 mg/ Sodium (Chloride) 250 mls @ 250 mls/hr IV Q24H [facility] Stop: 06/26/21 20:59 Last Admin: 06/26/21 20:27 Dose: 250 mls/hr Documented by: Sodium Chloride (Normal Saline) Confirm Administered Dose 250 mls @ as directed .ROUTE .STK-MED ONE Stop: 06/26/21 20:04 Last Admin: 06/27/21 00:47 Dose: Not Given Documented by: Ibuprofen (Ibuprofen 600 Mg Tab) 600 mg PO Q6H PRN PRN Reason: Pain/Fever Iopamidol (Iopamidol 755 Mg/Ml 100 Ml Bottle) 100 ml IVPUSH ONETIME ONE Stop: 06/22/21 21:20 Last Admin: 06/22/21 21:43 Dose: Not Given Documented by: Losartan Potassium (Losartan 100 Mg Tab) 100 mg PO DAILY [place] Last Admin: 06/23/21 09:41 Dose: 100 mg Documented by: Semaglutide [ Rybelsus] 7 Mg Tablet 0 each PO DAILY [facility] Sodium Chloride (Sodium Chloride 0.9% 10 Ml Sdv) 10 ml FLUSH ONETIME ONE Stop: 06/22/21 21:20 Last Admin: 06/22/21 21:43 Dose: Not Given Documented by: - Patient Data Lab Results Last 24 hrs: Laboratory Results - last 24 hr 06/26/21 06/26/21 06/27/21 Range/Units 16:25 20:33 06:12 WBC (4.23-9.07) K/mm3 RBC (4.63-6.08) M/mm3 Hgb (13.7-17.5) gm/dl Hct (40.1-51.0) % MCV (79.0-92.2) fl MCH (25.7-32.2) pg MCHC (32.2-35.5) g/dl RDW Std Deviation (35.1-43.9) fL Plt Count (163-337) K/mm3 MPV (9.4-12.3) fl Neut % (Auto) (34.0-67.9) % Lymph % (Auto) (21.8-53.1) % [place] % (Auto) (5.3-12.2) % Eos % (Auto) (0.8-7.0) Baso % (Auto) (0.1-1.2) % Neut # (Auto) (1.78-5.38) K/mm3 Lymph # (Auto) (1.32-3.57) K/mm3 [place] # (Auto) (0.30-0.82) K/mm3 Eos # (Auto) (0.04-0.54) K/mm3 Baso # (Auto) (0.01-0.08) K/mm3 Manual Slide Review D-Dimer, Quantitative 2.78 H (0.19-0.50) mg/L Sodium (136-145) mEq/L Potassium (3.5-5.1) mEq/L Chloride (98-107) mEq/L Carbon Dioxide (21-32) mEq/L Anion Gap (5-15) BUN (7-18) mg/dL Creatinine (0.7-1.3) mg/dL Est Cr Clr Drug Dosing mL/min Estimated GFR (MDRD) (>60) mL/min BUN/Creatinine Ratio (14-18) Glucose (70-99) mg/dL POC Glucose 163 H 155 H (70-99) mg/dL Calcium (8.5-10.1) mg/dL Total Bilirubin (0.2-1.0) mg/dL AST (15-37) U/L ALT (16-63) U/L Alkaline Phosphatase (46-116) U/L C-Reactive Protein (<1.0) mg/dL Total Protein (6.4-8.2) g/dl Albumin (3.4-5.0) g/dl Globulin gm/dL Albumin/Globulin Ratio (1-2) 06/27/21 06/27/21 06/27/21 Range/Units 06:15 06:15 06:25 WBC 6.18 (4.23-9.07) K/mm3 RBC 5.50 (4.63-6.08) M/mm3 Hgb 11.9 L (13.7-17.5) gm/dl Hct 43.2 (40.1-51.0) % MCV 78.5 L (79.0-92.2) fl MCH 21.6 L (25.7-32.2) pg MCHC 27.5 L (32.2-35.5) g/dl RDW Std Deviation 57.9 H (35.1-43.9) fL Plt Count 372 H (163-337) K/mm3 MPV 9.7 (9.4-12.3) fl Neut % (Auto) 43.1 (34.0-67.9) % Lymph % (Auto) 33.3 (21.8-53.1) % [place] % (Auto) 22.3 H (5.3-12.2) % Eos % (Auto) 1.0 (0.8-7.0) Baso % (Auto) 0.3 (0.1-1.2) % Neut # (Auto) 2.66 (1.78-5.38) K/mm3 Lymph # (Auto) 2.06 (1.32-3.57) K/mm3 [place] # (Auto) 1.38 H (0.30-0.82) K/mm3 Eos # (Auto) 0.06 (0.04-0.54) K/mm3 Baso # (Auto) 0.02 (0.01-0.08) K/mm3 Manual Slide Review Abnormal smear D-Dimer, Quantitative (0.19-0.50) mg/L Sodium 143 (136-145) mEq/L Potassium 4.4 (3.5-5.1) mEq/L Chloride 99 (98-107) mEq/L Carbon Dioxide 39 H (21-32) mEq/L Anion Gap 9.4 (5-15) BUN 21 H (7-18) mg/dL Creatinine 0.8 (0.7-1.3) mg/dL Est Cr Clr Drug Dosing 155.15 mL/min Estimated GFR (MDRD) > 60 (>60) mL/min BUN/Creatinine Ratio 26.3 H (14-18) Glucose 81 (70-99) mg/dL POC Glucose 84 (70-99) mg/dL Calcium 8.9 (8.5-10.1) mg/dL Total Bilirubin 0.3 (0.2-1.0) mg/dL AST 43 H (15-37) U/L ALT 39 (16-63) U/L Alkaline Phosphatase 69 (46-116) U/L C-Reactive Protein 2.2 H* (<1.0) mg/dL Total Protein 7.1 (6.4-8.2) g/dl Albumin 2.6 L (3.4-5.0) g/dl Globulin 4.5 gm/dL Albumin/Globulin Ratio 0.6 L (1-2) 06/27/21 Range/Units 10:37 WBC (4.23-9.07) K/mm3 RBC (4.63-6.08) M/mm3 Hgb (13.7-17.5) gm/dl Hct (40.1-51.0) % MCV (79.0-92.2) fl MCH (25.7-32.2) pg MCHC (32.2-35.5) g/dl RDW Std Deviation (35.1-43.9) fL Plt Count (163-337) K/mm3 MPV (9.4-12.3) fl Neut % (Auto) (34.0-67.9) % Lymph % (Auto) (21.8-53.1) % [place] % (Auto) (5.3-12.2) % Eos % (Auto) (0.8-7.0) Baso % (Auto) (0.1-1.2) % Neut # (Auto) (1.78-5.38) K/mm3 Lymph # (Auto) (1.32-3.57) K/mm3 [place] # (Auto) (0.30-0.82) K/mm3 Eos # (Auto) (0.04-0.54) K/mm3 Baso # (Auto) (0.01-0.08) K/mm3 Manual Slide Review D-Dimer, Quantitative (0.19-0.50) mg/L Sodium (136-145) mEq/L Potassium (3.5-5.1) mEq/L Chloride (98-107) mEq/L Carbon Dioxide (21-32) mEq/L Anion Gap (5-15) BUN (7-18) mg/dL Creatinine (0.7-1.3) mg/dL Est Cr Clr Drug Dosing mL/min Estimated GFR (MDRD) (>60) mL/min BUN/Creatinine Ratio (14-18) Glucose (70-99) mg/dL POC Glucose 111 H (70-99) mg/dL Calcium (8.5-10.1) mg/dL Total Bilirubin (0.2-1.0) mg/dL AST (15-37) U/L ALT (16-63) U/L Alkaline Phosphatase (46-116) U/L C-Reactive Protein (<1.0) mg/dL Total Protein (6.4-8.2) g/dl Albumin (3.4-5.0) g/dl Globulin gm/dL Albumin/Globulin Ratio (1-2) Result Diagrams: 06/27/21 06:15 06/27/21 06:15 Sepsis Event Note - Focused Exam Vital Signs: Vital Signs Temp Pulse Resp BP Pulse Ox Pulse Ox Pulse Ox 06/27/21 13:33 156/79 H 06/27/21 09:22 88 L 06/27/21 08:53 148/72 H 06/27/21 07:49 148/72 H 06/27/21 07:43 36.8 C 80 19 148/72 H 95 06/27/21 06:29 92 L 06/27/21 05:55 36.5 C 70 19 171/84 H 100 - Problem List & Annotations (1) Acute hypoxemic respiratory failure SNOMED Code(s): 087081457 Code(s): J96.01 - ACUTE RESPIRATORY FAILURE WITH HYPOXIA Status: Acute Priority: High Current Visit: Yes (2) COVID-19 SNOMED Code(s): 402756506 Code(s): U07.1 - COVID-19 Status: Acute Priority: High Current Visit: Yes (3) Morbid obesity SNOMED Code(s): 413099868 Code(s): E66.01 - MORBID (SEVERE) OBESITY DUE TO EXCESS CALORIES Status: Chronic Priority: Medium Current Visit: Yes (4) Hypoventilation associated with obesity syndrome SNOMED Code(s): 26626670, 211745690 Code(s): E66.2 - MORBID (SEVERE) OBESITY WITH ALVEOLAR HYPOVENTILATION Status: Chronic Priority: High Current Visit: Yes (5) Hypertensive heart disease SNOMED Code(s): 03323404 Code(s): I11.9 - HYPERTENSIVE HEART DISEASE WITHOUT HEART FAILURE Status: Chronic Priority: Medium Current Visit: Yes Qualifiers: Heart failure presence: with heart failure Heart failure type: right-sided Heart failure chronicity: chronic Qualified Code(s): I11.0 - Hypertensive heart disease with heart failure; I50.812 - Chronic right heart failure (6) Type II diabetes mellitus SNOMED Code(s): 15364698 Code(s): E11.9 - TYPE 2 DIABETES MELLITUS WITHOUT COMPLICATIONS Status: Chronic Priority: Medium Current Visit: Yes Qualifiers: Diabetes mellitus residential insulin use: without residential use Diabetes mellitus complication status: with other specified complication Qualified Code(s): E11.69 - Type 2 diabetes mellitus with other specified complication - My Orders Last 24 Hours: My Active Orders 06/26/21 13:00 cloNIDine [Catapres] 0.2 mg PO Q8H 06/26/21 22:17 Calcium Carbonate 600 mg PO BIDMEALS 06/26/21 22:21 Magnesium Oxide 400 mg PO DAILY 06/26/21 22:30 Multivitamins [Tab-A-Christie] 1 tab PO DAILY - Free Text/Narrative Note: I have seen and examined the patient independently of TINO Salter. I have discussed the case with him. I have also reviewed and agree with the plan of care as outlined by him. Please see orders.
[2021-06-27] MEDS: Calcium Carbonate 600 MG Tab PO SCH ×2 (07:48→16:29)
[2021-06-27] MEDS: cloNIDine 0.1 MG Tab PO SCH ×3 (07:49→21:30)
[2021-06-27] MEDS: Furosemide 40 MG/4 ML VIAL IVPUSH SCH ×2 (07:49→13:33)
[2021-06-27] MEDS: Zinc Sulfate 220 MG Cap PO SCH (08:53)
[2021-06-27] MEDS: Losartan 25 MG Tab PO SCH (08:53)
[2021-06-27] MEDS: Magnesium Oxide 400 MG Tab PO SCH (08:53)
[2021-06-27] MEDS: Multivitamin Tab PO SCH (08:53)
[2021-06-27] MEDS: Famotidine 20 MG Tab PO SCH ×2 (08:53→21:30)
[2021-06-27] MEDS: Cholecalciferol (Vitamin D3) 5,000 UNIT Cap PO SCH (08:53)
[2021-06-27] MEDS: Nicotine 14 MG/24 Hr Patch TRDERM SCH (08:54)
[2021-06-27] MEDS: Enoxaparin 150 MG/1 ML Syringe SUBCUT SCH ×2 (08:54→21:31)
[2021-06-27] MEDS: Dexamethasone 4 MG Tab PO SCH (08:54)
[2021-06-27] MEDS: Albuterol/Ipratropium 3.0-0.5 MG/3 ML Neb Soln NEB PRN ×2 (09:21→17:50)
--- NOTE | 2021-06-27 09:26 | CR ---
Chest: Frontal view of the chest was obtained. Comparison: Prior chest x-ray of 06/22/21. Diffuse increased lung markings are noted which are fairly stable from prior study. There is a linear density seen within the left mid lung most likely representing scarring. Heart size is slightly enlarged. No acute bony abnormality is seen. Impression: 1. Diffuse increased lung markings remain which are similar to prior chest x-ray. 2. Linear density within the left midlung most likely representing scarring. 3. Other findings which are stable from prior chest x-ray. Diagnostic code #3
[2021-06-27] MEDS: Acetaminophen 325 MG Tab PO PRN (22:51)
[2021-06-28] MEDS: Furosemide 40 MG/4 ML VIAL IVPUSH SCH (06:40)
[2021-06-28] MEDS: Calcium Carbonate 600 MG Tab PO SCH (06:41)
[2021-06-28] MEDS: cloNIDine 0.1 MG Tab PO SCH (06:41)
[2021-06-28] MEDS: Insulin Lispro 100 Unit/ML 3 ML KwikPen SUBCUT SCH ×2 (07:04→12:38)
[2021-06-28] MEDS: Nicotine 14 MG/24 Hr Patch TRDERM SCH (08:02)
[2021-06-28] MEDS: Multivitamin Tab PO SCH (08:02)
[2021-06-28] MEDS: Famotidine 20 MG Tab PO SCH (08:02)
[2021-06-28] MEDS: Cholecalciferol (Vitamin D3) 5,000 UNIT Cap PO SCH (08:02)
[2021-06-28] MEDS: Losartan 25 MG Tab PO SCH (08:03)
[2021-06-28] MEDS: Zinc Sulfate 220 MG Cap PO SCH (08:03)
[2021-06-28] MEDS: Magnesium Oxide 400 MG Tab PO SCH (08:03)
[2021-06-28] MEDS: Dexamethasone 4 MG Tab PO SCH (08:04)
[2021-06-28] MEDS: Enoxaparin 150 MG/1 ML Syringe SUBCUT SCH (08:05)
--- NOTE | 2021-06-28 08:14 | PCM.DCSUM1 ---
Discharge Summary - Hospital Course Diagnosis: Stroke: No - Discharge Data Discharge Date: 06/28/21 Discharge Disposition: Home, Self-Care 01 Condition: Good - Referral to Home Health Primary Care Physician: TINO Zuniga - Discharge Diagnosis/Problem(s) (1) Acute hypoxemic respiratory failure SNOMED Code(s): 149337730 ICD Code: J96.01 - ACUTE RESPIRATORY FAILURE WITH HYPOXIA Status: Acute Priority: High (2) COVID-19 SNOMED Code(s): 693931737 ICD Code: U07.1 - COVID-19 Status: Resolved Priority: High (3) Morbid obesity SNOMED Code(s): 112481952 ICD Code: E66.01 - MORBID (SEVERE) OBESITY DUE TO EXCESS CALORIES Status: Chronic Priority: Medium (4) Hypoventilation associated with obesity syndrome SNOMED Code(s): 08639014, 400509081 ICD Code: E66.2 - MORBID (SEVERE) OBESITY WITH ALVEOLAR HYPOVENTILATION Status: Chronic Priority: High (5) Hypertensive heart disease SNOMED Code(s): 53604527 ICD Code: I11.9 - HYPERTENSIVE HEART DISEASE WITHOUT HEART FAILURE Status: Chronic Priority: Medium Problem Details: Preserved ejection fraction Qualifiers: Heart failure presence: with heart failure Heart failure type: right-sided Heart failure chronicity: chronic Qualified Code(s): I11.0 - Hypertensive heart disease with heart failure; I50.812 - Chronic right heart failure (6) Type II diabetes mellitus SNOMED Code(s): 20420791 ICD Code: E11.9 - TYPE 2 DIABETES MELLITUS WITHOUT COMPLICATIONS Status: Chronic Priority: Medium Qualifiers: Diabetes mellitus manager instrumentation insulin use: without manager instrumentation use Diabetes mellitus complication status: with other specified complication Qualified Code(s): E11.69 - Type 2 diabetes mellitus with other specified complication - Patient Summary/Data Consults: Consultations 06/23/21 09:01 Consult to Supervisor Rolling Room [CONS] Routine 06/23/21 09:05 Consult to Respiratory Therapy [Respiratory Care Assess and Treatment] [CONS] Routine Hospital Course: The patient is a 35-year-old gentleman who had presented to the emergency department for admission due to hypoxia. The patient was also found to be positive for COVID-19 infection. The patient was also treated with remdesivir 200 mg IV initially followed by 4 doses of remdesivir 100 mg IV and these were completed and tolerated well. The patient also had been placed on dexamethasone 6 mg p.o. daily and he also tolerated this. The patient was also noted to have anasarca. He further reported that he underwent a stress test a month prior to presentation which showed LVH but no ischemia. The patient had been placed on diuretics. During the course of hospitalization the patient was noted to have a decrease in weight from 231 kg to 191 kg. The patient's breathing was better. The patient also had a 2D echocardiogram completed on June 23, 2021 which showed a left ventricular ejection fraction of 60 to 65% although it was considered to be a technically difficult study with suboptimal imaging. The right ventricle was not well visualized although there was noted to have some septal flattening consistent with RV pressure overload. 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 Further, the patient had been noted to have episodes of desaturation at night in spite of CPAP in place. This would be indicative of morbid obesity hypoventilation syndrome. It should also be noted that the patient while in hospital have been running consistently high carbon dioxide levels indicating CO2 retention. The patient's blood pressure was also somewhat poorly controlled and he has been given a prescription for clonidine 0.2 mg p.o. every 8 hours in addition to his losartan/hydrochlorothiazide. The patient was also to continue with his Lasix 40 mg p.o. daily along with potassium gluconate 99 mg p.o. daily. The patient also had been placed on dexamethasone 4 mg p.o. daily and was given a prescription for 5 tablets. He was also given a prescription for nicotine patch. During the course of hospitalization the patient had his hemoglobin A1c tested and was found to be in fairly good control with an A1c of 7.6%. His blood glucose was also well controlled during the course of hospitalization. By day of discharge the patient had improved sufficiently that he felt like he can go home. He was tolerating his diet. The patient is also to have activity as tolerated. The patient has been hemodynamically stable and he has been discharged from acute hospitalization with the recommendations listed above. - Patient Instructions Diet: Usual Diet as Tolerated, Diabetic Diet Fluid Restriction: 2000 mL Activity: As Tolerated - Discharge Plan *PRESCRIPTION DRUG MONITORING PROGRAM REVIEWED*: Not Applicable *COPY OF PRESCRIPTION DRUG MONITORING REPORT IN PATIENT VINI: Not Applicable Prescriptions/Med Rec: cloNIDine [Catapres] 0.2 mg PO Q8H #90 tablet dexAMETHasone [Dexamethasone] 4 mg PO DAILY #5 tablet Nicotine [Habitrol] 14 mg TRDERM DAILY #20 patch Tobacco Cessation Medication: Prescription Given Home Medications: Home Meds atorvaSTATin Calcium [Lipitor] 40 mg PO DAILY 12/13/20 [History] Calcium Carbonate [Calcium] 600 mg PO 06/22/21 [History] Furosemide [Lasix] 40 mg PO DAILY 06/22/21 [History] Losartan/Hydrochlorothiazide [Losartan-HCTZ 100-25 MG] 25 - 100 mg PO DAILY 06/22/21 [History] Magnesium Oxide [Mag-Oxide Magnesium] 06/22/21 [History] Potassium Gluconate [Potassium] 99 mg PO 06/22/21 [History] Semaglutide [Rybelsus] 7 mg PO DAILY 06/22/21 [History] Cholecalciferol (Vitamin D3) [Vitamin D3] 5,000 unit PO DAILY cap 06/28/21 [Rx] Nicotine [Habitrol] 14 mg TRDERM DAILY #20 patch 06/28/21 [Rx] cloNIDine [Catapres] 0.2 mg PO Q8H #90 tablet 06/28/21 [Rx] dexAMETHasone [Dexamethasone] 4 mg PO DAILY #5 tablet 06/28/21 [Rx] Oxygen Therapy Mode: Nasal Cannula Oxygen Flow Rate (L/min): 2 Patient Handouts: Type 2 Diabetes Mellitus, Diagnosis, Adult, COVID-19 Frequently Asked Questions, 10 Things You Can Do to Manage Your COVID-19 Symptoms at Home - [facility] (02/14/2021), Home Oxygen Use, Adult, COVID-19: Keep Your Baby Healthy and Safe - [facility] (08/26/2020), Low-Sodium Eating Plan, Steps to Quit Smoking, Sepsis, Self Care, Adult Referrals: Yelena Torrez PA-C [Primary Care Provider] - (Call clinic on Wednesday and make an appointment to follow-up with Yelena Torrez in one week.) - Discharge Summary/Plan Comment DC Time >30 min.: Yes Total # of Minutes for Discharge Time: 60 - General Info Date of Service: 06/28/21 Admission Dx/Problem (Free Text: Admission Diagnosis/Problem Admission Diagnosis/Problem acute respiratory failure secondary to COVID-19 pneumonia Subjective Update: The patient says that he feels much better today. He feels like he can safely go home. He has been tolerating his diabetic diet. The patient has no pain. Functional Status: Reports: Pain Controlled, Tolerating Diet. Denies: New Symptoms - Review of Systems General: Reports: No Symptoms HEENT: Reports: No Symptoms Pulmonary: Reports: No Symptoms Cardiovascular: Reports: No Symptoms Gastrointestinal: Reports: No Symptoms Genitourinary: Reports: No Symptoms Musculoskeletal: Reports: No Symptoms Skin: Reports: No Symptoms Neurological: Reports: No Symptoms Psychiatric: Reports: No Symptoms - Patient Data Vitals - Most Recent: Last Vital Signs Temp 36.3 C 06/28/21 03:33 Pulse 62 06/28/21 03:33 Resp 20 06/28/21 03:33 BP 159/76 H 06/28/21 08:03 Pulse Ox 100 06/28/21 03:33 Weight - Most Recent: 191.144 kg I&O - Last 24 hours: Intake & Output 06/27/21 06/28/21 06/28/21 22:59 06:59 14:59 Intake Total 860 2100 200 Output Total 3100 3000 2500 Balance -2240 -900 -2300 Lab Results - Last 24 hrs: Laboratory Results - last 24 hr 06/27/21 06/27/21 06/27/21 Range/Units 10:37 16:28 21:54 WBC (4.23-9.07) K/mm3 RBC (4.63-6.08) M/mm3 Hgb (13.7-17.5) gm/dl Hct (40.1-51.0) % MCV (79.0-92.2) fl MCH (25.7-32.2) pg MCHC (32.2-35.5) g/dl RDW Std Deviation (35.1-43.9) fL Plt Count (163-337) K/mm3 MPV (9.4-12.3) fl Neut % (Auto) (34.0-67.9) % Lymph % (Auto) (21.8-53.1) % [place] % (Auto) (5.3-12.2) % Eos % (Auto) (0.8-7.0) Baso % (Auto) (0.1-1.2) % Neut # (Auto) (1.78-5.38) K/mm3 Lymph # (Auto) (1.32-3.57) K/mm3 [place] # (Auto) (0.30-0.82) K/mm3 Eos # (Auto) (0.04-0.54) K/mm3 Baso # (Auto) (0.01-0.08) K/mm3 Manual Slide Review POC Glucose 111 H 148 H 100 H (70-99) mg/dL 06/28/21 06/28/21 Range/Units 06:40 07:20 WBC 7.00 (4.23-9.07) K/mm3 RBC 5.92 (4.63-6.08) M/mm3 Hgb 12.8 L (13.7-17.5) gm/dl Hct 46.6 (40.1-51.0) % MCV 78.7 L (79.0-92.2) fl MCH 21.6 L (25.7-32.2) pg MCHC 27.5 L (32.2-35.5) g/dl RDW Std Deviation 58.5 H (35.1-43.9) fL Plt Count 377 H (163-337) K/mm3 MPV 9.5 (9.4-12.3) fl Neut % (Auto) 46.9 (34.0-67.9) % Lymph % (Auto) 36.4 (21.8-53.1) % [place] % (Auto) 15.0 H (5.3-12.2) % Eos % (Auto) 1.3 (0.8-7.0) Baso % (Auto) 0.3 (0.1-1.2) % Neut # (Auto) 3.28 (1.78-5.38) K/mm3 Lymph # (Auto) 2.55 (1.32-3.57) K/mm3 [place] # (Auto) 1.05 H (0.30-0.82) K/mm3 Eos # (Auto) 0.09 (0.04-0.54) K/mm3 Baso # (Auto) 0.02 (0.01-0.08) K/mm3 Manual Slide Review Abnormal smear POC Glucose 95 (70-99) mg/dL Med Orders - Current: Current Medications Acetaminophen (Acetaminophen 325 Mg Tab) 650 mg PO Q4H PRN PRN Reason: Pain/Fever Last Admin: 06/27/21 22:51 Dose: 650 mg Documented by: Albuterol (Albuterol 6.7 Gm Inhaler) 0 gm INH Q2H PRN PRN Reason: SOB/Wheezing Albuterol/Ipratropium (Albuterol/Ipratropium 3.0-0.5 Mg/3 Ml Neb Soln) 3 ml NEB QIDRT PRN PRN Reason: Shortness Of Breath/wheezing Last Admin: 06/27/21 17:50 Dose: 3 ml Documented by: Calcium Carbonate/Glycine (Calcium Carbonate 600 Mg Tab) 600 mg PO BIDMEALS [facility] Last Admin: 06/28/21 06:41 Dose: 600 mg Documented by: Cholecalciferol (Cholecalciferol (Vitamin D3) 5,000 Unit Cap) 5,000 unit PO DAILY [facility] Last Admin: 06/28/21 08:02 Dose: 5,000 unit Documented by: Clonidine HCl (Clonidine 0.1 Mg Tab) 0.2 mg PO Q8H [facility] Last Admin: 06/28/21 06:41 Dose: 0.2 mg Documented by: Dexamethasone (Dexamethasone 4 Mg Tab) 6 mg PO DAILY [facility] Stop: 07/01/21 09:01 Last Admin: 06/28/21 08:04 Dose: 6 mg Documented by: Enoxaparin Sodium (Enoxaparin 150 Mg/1 Ml Syringe) 230 mg SUBCUT Q12H [facility] Last Admin: 06/28/21 08:05 Dose: 230 mg Documented by: Famotidine (Famotidine 20 Mg Tab) 20 mg PO BID [facility] Last Admin: 06/28/21 08:02 Dose: 20 mg Documented by: Furosemide (Furosemide 40 Mg/4 Ml Vial) 40 mg IVPUSH BIDDIURETIC [facility] Last Admin: 06/28/21 06:40 Dose: 40 mg Documented by: Guaifenesin (Guaifenesin 100 Mg/5 Ml Soln 10 Ml Ud Cup) 200 mg PO Q4H PRN PRN Reason: Cough Last Admin: 06/26/21 21:56 Dose: 200 mg Documented by: Hydralazine HCl (Hydralazine 20 Mg/Ml Sdv) 10 mg IVPUSH Q4H PRN PRN Reason: SBP >180 or DBP >100 Insulin Human Lispro (Insulin Lispro 100 Unit/Ml 3 Ml Kwikpen) 0 unit SUBCUT QIDACANDBED [facility]; Protocol Last Admin: 06/28/21 07:04 Dose: Not Given Documented by: Losartan Potassium (Losartan 25 Mg Tab) 25 mg PO DAILY [facility] Last Admin: 06/28/21 08:03 Dose: 25 mg Documented by: Magnesium Oxide (Magnesium Oxide 400 Mg Tab) 400 mg PO DAILY [facility] Last Admin: 06/28/21 08:03 Dose: 400 mg Documented by: Miscellaneous Information (Remove Patch) 0 ea TRDERM DAILY [facility] Last Admin: 06/28/21 08:04 Dose: 1 ea Documented by: Multivitamins/Minerals/Vitamin C (Multivitamin Tab) 1 tab PO DAILY [facility] Last Admin: 06/28/21 08:02 Dose: 1 tab Documented by: Nicotine (Nicotine 14 Mg/24 Hr Patch) 14 mg TRDERM DAILY [facility] Last Admin: 06/28/21 08:02 Dose: 14 mg Documented by: Ondansetron HCl (Ondansetron 4 Mg/2 Ml Sdv) 4 mg IV Q6H PRN PRN Reason: Nausea/Vomiting Zinc Sulfate (Zinc Sulfate 220 Mg Cap) 220 mg PO DAILY [facility] Last Admin: 06/28/21 08:03 Dose: 220 mg Documented by: Discontinued Medications Amlodipine Besylate (Amlodipine 10 Mg Tab) 10 mg PO DAILY [facility] Last Admin: 06/24/21 09:48 Dose: 10 mg Documented by: Atorvastatin Calcium (Atorvastatin 40 Mg Tab) 40 mg PO DAILY [facility] Last Admin: 06/24/21 09:47 Dose: 40 mg Documented by: Dexamethasone (Dexamethasone 4 Mg/Ml 5 Ml Mdv) 6 mg IV ONETIME ONE Stop: 06/22/21 20:25 Last Admin: 06/22/21 21:09 Dose: 6 mg Documented by: Diltiazem HCl (Diltiazem 180 Mg Cap.Cd) 180 mg PO DAILY [facility] Last Admin: 06/24/21 09:47 Dose: 180 mg Documented by: Enoxaparin Sodium (Enoxaparin 150 Mg/1 Ml Syringe) 230 mg 1 mg/kg (230 mg) SUBCUT DAILY [facility] Last Admin: 06/23/21 08:23 Dose: 230 mg Documented by: Furosemide (Furosemide 40 Mg/4 Ml Vial) 40 mg IVPUSH NOW ONE Stop: 06/22/21 20:25 Last Admin: 06/22/21 21:07 Dose: 40 mg Documented by: Furosemide (Furosemide 40 Mg Tab) 40 mg PO DAILY [facility] Last Admin: 06/23/21 09:44 Dose: 40 mg Documented by: Furosemide (Furosemide 20 Mg/2 Ml Vial) 20 mg IVPUSH BIDDIURETIC [facility] Last Admin: 06/24/21 05:56 Dose: 20 mg Documented by: Furosemide (Furosemide 40 Mg/4 Ml Vial) 20 mg IVPUSH NOW ONE Stop: 06/24/21 10:30 Last Admin: 06/24/21 11:39 Dose: 20 mg Documented by: Hydrochlorothiazide (Hydrochlorothiazide 25 Mg Tab) 25 mg PO DAILY [facility] Last Admin: 06/24/21 09:46 Dose: 25 mg Documented by: Remdesivir 200 mg/ Sodium (Chloride) 250 mls @ 250 mls/hr IV ONETIME ONE Stop: 06/22/21 20:26 Last Admin: 06/22/21 21:09 Dose: 250 mls/hr Documented by: Sodium Chloride (Normal Saline) 100 mls @ 70 mls/min IV ASDIRECTED [facility] Remdesivir 100 mg/ Sodium (Chloride) 250 mls @ 250 mls/hr IV Q24H [place] Stop: 06/26/21 20:59 Last Admin: 06/26/21 20:27 Dose: 250 mls/hr Documented by: Sodium Chloride (Normal Saline) Confirm Administered Dose 250 mls @ as directed .ROUTE .STK-MED ONE Stop: 06/26/21 20:04 Last Admin: 06/27/21 00:47 Dose: Not Given Documented by: Ibuprofen (Ibuprofen 600 Mg Tab) 600 mg PO Q6H PRN PRN Reason: Pain/Fever Iopamidol (Iopamidol 755 Mg/Ml 100 Ml Bottle) 100 ml IVPUSH ONETIME ONE Stop: 06/22/21 21:20 Last Admin: 06/22/21 21:43 Dose: Not Given Documented by: Losartan Potassium (Losartan 100 Mg Tab) 100 mg PO DAILY [facility] Last Admin: 06/23/21 09:41 Dose: 100 mg Documented by: Semaglutide [ Rybelsus] 7 Mg Tablet 0 each PO DAILY [facility] Sodium Chloride (Sodium Chloride 0.9% 10 Ml Sdv) 10 ml FLUSH ONETIME ONE Stop: 06/22/21 21:20 Last Admin: 06/22/21 21:43 Dose: Not Given Documented by: - Exam Quality Assessment: Reports: Supplemental Oxygen, DVT Prophylaxis General: Reports: Alert, Oriented, Cooperative, No Acute Distress HEENT: Reports: Pupils Equal, Pupils Reactive, EOMI, Mucous Membr. Moist/Altha Neck: Reports: Supple, Trachea Midline Lungs: Reports: Clear to Auscultation, Normal Respiratory Effort Cardiovascular: Reports: Regular Rate, Regular Rhythm GI/Abdominal Exam: Normal Bowel Sounds, Soft, Non-Tender, No Distention, Other (Morbidly obese) (Male) Exam: Deferred Rectal (Males) Exam: Deferred Back Exam: Reports: Normal Inspection, Full Range of Motion Extremities: Normal Inspection, Pedal Edema Skin: Reports: Warm, Dry, Intact, Other (Chronic skin changes lower extremities due to venous stasis and hemosiderin deposit) Neurological: Reports: No New Focal Deficit Psy/Mental Status: Reports: Alert, Normal Affect, Normal Mood
[2021-06-28 12:41] VITALS: BP 156/74; PULSE 74
== END 2021-06-28 15:02 | disposition home or self-care (01) | DRG 137 ==
LOC: JD.ED 17:50 → JD.MS 20:44
PROVIDERS: ADMIT Family Medicine; ATTEND Family Medicine
PROC: 8E0ZXY6 Isolation (ICD-10-PCS; principal; 2021-06-22)
PROC: 3E0333Z Introduction of Anti-inflammatory into Peripheral Vein, Percutaneous Approach (ICD-10-PCS; 2021-06-22)
PROC: XW033E5 Introduction of Remdesivir Anti-infective into Peripheral Vein, Percutaneous Approach, New Technology Group 5 (ICD-10-PCS; 2021-06-22)
PROC: 3E0DX3Z Introduction of Anti-inflammatory into Mouth and Pharynx, External Approach (ICD-10-PCS; 2021-06-28)
DX: U07.1 COVID-19 (principal); E66.2 Morbid (severe) obesity with alveolar hypoventilation; J96.01 Acute respiratory failure with hypoxia; I11.0 Hypertensive heart disease with heart failure; I50.812 Chronic right heart failure; E11.9 Type 2 diabetes mellitus without complications; Z79.899 Other long term (current) drug therapy; Z68.43 Body mass index [BMI] 50.0-59.9, adult; E78.5 Hyperlipidemia, unspecified; D50.9 Iron deficiency anemia, unspecified; F17.210 Nicotine dependence, cigarettes, uncomplicated; E78.00 Pure hypercholesterolemia, unspecified; Z86.16 Personal history of COVID-19; E55.9 Vitamin D deficiency, unspecified; R79.89 Other specified abnormal findings of blood chemistry; J12.82 Pneumonia due to coronavirus disease 2019
CPT/HCPCS: 36415; 71045; 71045-26; 80053; 82272; 82306; 82947; 83036; 83735; 83880; 84145; 84484; 85025; 85379; 85610; 86140; 93005; 93306; 94640; 94660; 94667; 94668; 94762; 99285-25; A9270-GY; J1100; J1650; J1815; J1940; J7050; J7620-GY; J8540; U0002